=== PATIENT | female | born 1980 | race Caucasian/White ===

== ENCOUNTER 2016-08-04 04:07 | Emergency (ER) | payer MEDICAID, OTHER ==
[~2016-08-04] VITALS: Ht 157.5 cm; Wt 59.0 kg
[~2016-08-04 04:07] MED LIST: ACETAMINOPHEN500 M3 ORAL; ALBUTEROL2.5 MG/3 M INH; KEFLEX500 MG ORAL; PRENATAL FORMU1 EAC2 PO
--- NOTE | 2016-08-04 04:12 | Emergency Room Report ---
History of Present Illness General Chief Complaint: Dyspnea/Respdistress Source: Patient, EMS Present Illness HPI Patient is a 35-year-old female presented after increased difficulty breathing. The patient was acute onset of symptoms. She had associated nonproductive cough. The patient prior history of asthma. She denied any fever. She had a gradual worsening of symptoms. Allergies: Coded Allergies: No Known Allergies (Unverified , 09/25/15) Patient History Past Medical History: asthma Past Surgical History: hysterectomy Reviewed Nursing Documentation: PMH: Agreed, PSxH: Agreed Nursing Documentation-PMH Hx Asthma: Yes Review of Systems All Other Systems: negative except mentioned in HPI Physical Exam Sp02 EP Interpretation: reviewed, normal General Appearance: normal inspection, alert, GCS 15, moderate distress Head: atraumatic ENT: normal ENT inspection, hearing grossly normal, normal voice Neck: normal inspection, full range of motion, supple, no bony tend Respiratory: normal inspection, no respiratory distress, no retraction, wheezing Cardiovascular #1: no edema, tachycardia Gastrointestinal: normal inspection, normal bowel sounds, non tender, soft, no guarding, no hernia Genitourinary: no CVA tenderness Musculoskeletal: normal inspection, back normal, normal range of motion Neurologic: normal inspection, alert, oriented x3, responsive, classification and treatment director III-XII nml as tested, speech normal Psychiatric: normal inspection, judgement/insight normal, mood/affect normal Skin: normal inspection, normal color, no rash Medical Decision Making Diagnostic Impression: Primary Impression: Asthma exacerbation attacks ER Course Patient presented for shortness of breath. Differential included but was not limited to anemia, pneumonia, pneumothorax, myocardial infarction, pericardial effusion, congestive heart failure, acidosis. Because of complexity of patient' s case laboratory testing and imaging studies were ordered.The patient was given IV steroids as well as breathing treatments. Patient was noted to have prior hysterectomy. Chest x-ray one view interpreted by me showed hyperinflation with some bullous changes. The patient started on IV fluids.Dr. Dsouza was contacted for inpatient management due to need for inpatient monitoring and treatment. Labs Test 08/04/16 04:50 08/04/16 05:20 08/04/16 05:27 08/04/16 06:40 Lipase 41 U/L (< 60) White Blood Count 14.1 K/UL (4.8-10.8) Red Blood Count 5.07 M/UL (4.20-5.40) Hemoglobin 15.7 G/DL (12.0-16.0) Hematocrit 47.1 % (37.0-47.0) Mean Corpuscular Volume 93 FL (80-99) Mean Corpuscular Hemoglobin 30.9 PG (27.0-31.0) Mean Corpuscular Hemoglobin Concent 33.3 G/DL (32.0-36.0) Red Cell Distribution Width 11.8 % (11.6-14.8) Platelet Count 300 K/UL (150-450) Mean Platelet Volume 7.2 FL (6.5-10.1) Neutrophils (%) (Auto) 57.9 % (45.0-75.0) Lymphocytes (%) (Auto) 24.3 % (20.0-45.0) Monocytes (%) (Auto) 8.4 % (1.0-10.0) Eosinophils (%) (Auto) 8.4 % (0.0-3.0) Basophils (%) (Auto) 1.1 % (0.0-2.0) Sodium Level 142 mEQ/L (135-145) Potassium Level 4.3 mEQ/L (3.4-4.9) Chloride Level 104 mEQ/L (98-107) Carbon Dioxide Level 25 mEQ/L (20-30) Anion Gap 13 (5-15) Blood Urea Nitrogen 19 mg/dL (7-23) Creatinine 0.8 mg/dL (0.5-0.9) Estimat Glomerular Filtration Rate > 60 mL/min (>60) Glucose Level 134 mg/dL (74-106) Calcium Level 9.2 mg/dL (8.6-10.2) Total Bilirubin 0.3 mg/dL (0.0-1.2) Aspartate Amino Transf (AST/SGOT) 18 U/L (5-40) Alanine Aminotransferase (ALT/SGPT) 19 U/L (3-33) Alkaline Phosphatase 66 U/L (35-104) Total Protein 6.9 g/dL (6.6-8.7) Albumin 4.3 g/dL (3.5-5.2) Globulin 2.6 g/dL Albumin/Globulin Ratio 1.6 (1.0-2.7) Troponin I < 0.30 ng/mL (<=0.30) EKG Diagnostic Results Rate: tachycardiac Rhythm: NSR ST Segments: no acute changes Chest X-Ray Diagnostic Results Chest X-Ray Ordered: Yes # of Views/Limited/Complete: 1 View Interpretation: no consolidation Indication: Chest Pain Impression: Other - hyperinflation Date Electronically Signed: Aug 04, 2016 Time Electronically Signed: 07:08 Status: unchanged Disposition: ADMITTED INPATIENT Condition: Serious IrwinRj Aug 04, 2016 04:12
[2016-08-04] MEDS ORDERED: Solu-MEDROL 125mg Inj IVP ONE (04:15)
[2016-08-04] MEDS: DuoNeb 0.5-3(2.5)mg/3ml neb HHN SCH ×9 (04:15→07:16)
[2016-08-04 04:30] VITALS: BP 118/46
[2016-08-04 05:00] VITALS: BP 93/48
[2016-08-04 05:30] VITALS: BP 105/51
[2016-08-04] MEDS ORDERED: DuoNeb 0.5-3(2.5)mg/3ml neb HHN ONE (05:30)
[2016-08-04 05:31] LABS: BASOPHILS % (AUTO) 1.1 % (0.0-2.0); EOSINOPHILS % (AUTO) 8.4 % (0.0-3.0); LYMPHOCYTES % (AUTO) 24.3 % (20.0-45.0); MEAN CORPUSCULAR HEMOGLOBIN 30.9 PG (27.0-31.0); MEAN CORPUSCULAR HGB CONC 33.3 G/DL (32.0-36.0); MEAN CORPUSCULAR VOLUME 93 FL (80-99); MEAN PLATELET VOLUME 7.2 FL (6.5-10.1); MONOCYTES % (AUTO) 8.4 % (1.0-10.0); NEUTROPHILS % (AUTO) 57.9 % (45.0-75.0); PLATELET COUNT 300 K/UL (150-450); RED BLOOD COUNT 5.07 M/UL (4.20-5.40); RED CELL DISTRIBUTION WIDTH 11.8 % (11.6-14.8); WHITE BLOOD COUNT 14.1 K/UL (4.8-10.8)
[2016-08-04 05:45] LABS: ALANINE AMINOTRANSFERASE 19 U/L (3-33); ALBUMIN/GLOBULIN RATIO 1.6 (1.0-2.7); ANION GAP 13 (5-15); ASPARTATE AMINO TRANSFERASE 18 U/L (5-40); CALCIUM 9.2 mg/dL (8.6-10.2); CARBON DIOXIDE 25 mEQ/L (20-30); CHLORIDE 104 mEQ/L (98-107); CREATININE 0.8 mg/dL (0.5-0.9); GLOMERULAR FILTRATION RATE > 60 mL/min (>60); HEMOLYSIS 24; POTASSIUM 4.3 mEQ/L (3.4-4.9); SODIUM 142 mEQ/L (135-145); TOTAL PROTEIN 6.9 g/dL (6.6-8.7)
[2016-08-04 05:48] VITALS: BP 118/46
[2016-08-04 05:56] LABS: TROPONIN I < 0.30 ng/mL (<=0.30)
[2016-08-04 07:00] VITALS: BP 111/65
[2016-08-04] MEDS ORDERED: Promethazine/Codeine 5ml UD ORAL PRN (07:30)
[2016-08-04 07:36] VITALS: BP 111/65
[2016-08-04] MEDS ORDERED: Solu-MEDROL 125mg Inj IVP SCH (08:00)
[2016-08-04] MEDS ORDERED: Theophylline ER 100mg ORAL SCH (09:00)
[2016-08-04] MEDS ORDERED: Azithromycin 500 MG in D5W 275 ML IVPB SCH (09:00)
--- NOTE | 2016-08-04 12:45 | History and Physical Report ---
DATE OF ADMISSION: 08/04/2016 SOURCE OF INFORMATION: The patient and EMR. HISTORY OF PRESENT ILLNESS: The patient is a 35-year-old female, presented with increasing shortness of breath. The patient denied any chest pain. The patient denies any headache. The patient denied any abnormal bleeding. The patient denies any productive cough. PAST MEDICAL HISTORY: Asthma. PAST SURGICAL HISTORY: Hysterectomy. ALLERGIES: NKDA. FAMILY HISTORY: Reviewed noncontributory. REVIEW OF SYSTEMS: Reviewed. All 12 points of review of systems reviewed with the patient. Positive and negative pertinent elements as above. PHYSICAL EXAMINATION: VITAL SIGNS: Blood pressure 130/80, temperature 98.2 degrees, pulse oximetry 98% on room air, respiratory rate 18, and pulse rate 110-120. HEENT: Head and neck, atraumatic and normocephalic. CHEST: Chest is diffuse. Bronchial and mixed wheezing sounds. Negative for crackles. Negative for decreased breathing. HEART: S1 and S2. Regular rate and rhythm. ABDOMEN: Soft. No organomegaly. MUSCULOSKELETAL: No gross focal motor deficit. NEUROLOGY: The patient is awake, alert and oriented x3. LABORATORY AND DIAGNOSTIC DATA: Lab results, WBC 14.1, hemoglobin 15.5, and platelets 300,000. sodium 142, potassium 4.3, BUN 19, and creatinine 0.8. UA is negative for . Chest x-ray, official report is pending. ASSESSMENT AND PLAN: 1. Asthma exacerbation. 2. Urinary tract infection. 3. Abnormal leukocytosis. Differential diagnosis secondary to outpatient steroid regimen treatment versus systemic inflammatory response syndrome. 4. Gastrointestinal and deep vein thrombosis prophylaxes. PLAN OF CARE: We will initiate the patient on the IV Solu-Medrol 60 mg three times a day and Zithromax 500 mg daily. I discussed the admission orders with the RN in the ER. Minerva Dsouza M.D. DR: Marcy JOB#: [id number] CC: MAJOR
[2016-08-04] MEDS ORDERED: DuoNeb 0.5-3(2.5)mg/3ml neb HHN SCH (13:00)
--- NOTE | 2016-08-06 09:10 | Diagnostic Imaging Report ---
Indication: Dyspnea Comparison: None A single view chest radiograph was obtained. Findings: Small focal infiltrate suspected in the right perihilar region. Please correlate clinically for pneumonia. Heart size is normal. Bones are unremarkable. Impression: Question of a small infiltrate in the right perihilar region of the lung.
== END 2016-08-04 07:46 | disposition left against medical advice (07) ==
LOC: EDBD 04:07 → EMR 05:07 → UNDOADMIN 06:17 → 3E 06:17 → EDBEDREQ 06:52 → EMR 07:46
DX: J45.901 Unspecified asthma with (acute) exacerbation (principal); N39.0 Urinary tract infection, site not specified; D72.829 Elevated white blood cell count, unspecified
CPT/HCPCS: 36415; 71010; 80053; 80300; 81025; 83690; 84484; 85025; 93005; 94640; 94664; 99285; J2405; J2930; J7620

== ENCOUNTER 2016-08-08 17:42 | Inpatient (IN) | payer OTHER ==
[~2016-08-08] VITALS: Ht 157.5 cm; Wt 62.1 kg
[2016-08-08] MEDS ORDERED: Ipratropium 0.02% Inh Soln 2.5ml UD HHN ONE (17:45)
[2016-08-08] MEDS ORDERED: Solu-MEDROL 125mg Inj IVP ONE (17:45)
[2016-08-08] MEDS: LORazepam 0.5mg tab ORAL ONE ×2 (17:51→18:06)
[2016-08-08] MEDS: Albuterol ud Inhalation HHN SCH ×3 (17:55→18:19)
[2016-08-08 18:05] VITALS: BP 150/91
[2016-08-08 18:08] LABS: BASOPHILS % (AUTO) 1.6 % (0.0-2.0); EOSINOPHILS % (AUTO) 10.7 % (0.0-3.0); LYMPHOCYTES % (AUTO) 31.3 % (20.0-45.0); MEAN CORPUSCULAR HEMOGLOBIN 32.6 PG (27.0-31.0); MEAN CORPUSCULAR HGB CONC 34.8 G/DL (32.0-36.0); MEAN CORPUSCULAR VOLUME 94 FL (80-99); MONOCYTES % (AUTO) 7.7 % (1.0-10.0); NEUTROPHILS % (AUTO) 48.8 % (45.0-75.0); PLATELET COUNT 273 K/UL (150-450); RED BLOOD COUNT 4.69 M/UL (4.20-5.40); RED CELL DISTRIBUTION WIDTH 11.6 % (11.6-14.8); WHITE BLOOD COUNT 10.7 K/UL (4.8-10.8)
[2016-08-08] MEDS ORDERED: LORazepam Inj 2mg/ml 1ml IV ONE (18:15)
--- NOTE | 2016-08-08 18:16 | Emergency Room Report ---
History of Present Illness General Chief Complaint: Dyspnea/Respdistress Source: Patient Present Illness HPI This patient has a history of asthma. She was seen 4 days ago here at [facility] emergency department for the same symptoms. She left AGAINST MEDICAL ADVICE at that time. She states that over the past day she has had worsening shortness of breath and dyspnea. She is very anxious and stating that she can't breathe. She denies tobacco use or drug use. She has no other complaints. Allergies: Coded Allergies: No Known Allergies (Unverified , 09/25/15) Patient History Past Medical History: see triage record, asthma Social History: Denies: alcohol use, drug use, smoking Reviewed Nursing Documentation: PMH: Agreed, PSxH: Agreed Nursing Documentation-PMH Hx Cardiac Problems: No Hx Hypertension: No Hx Pacemaker: No Hx Asthma: No Hx Diabetes: No Hx Cancer: No Hx Gastrointestinal Problems: No Hx Dialysis: No History Of Psychiatric Problem: No Hx Neurological Problems: No Hx Cerebrovascular Accident: No Hx Seizures: No Review of Systems All Other Systems: negative except mentioned in HPI Physical Exam Vital Signs Date Time Temp Pulse Resp B/P Pulse Ox O2 Delivery O2 Flow Rate FiO2 08/08/16 17:40 98.1 88 24 120/80 98 Simple Mask 08/08/16 17:45 2.0 Sp02 EP Interpretation: reviewed, normal General Appearance: no apparent distress, alert, GCS 15, non-toxic Head: normocephalic, atraumatic Eyes: bilateral eye PERRL, bilateral eye normal inspection ENT: hearing grossly normal, normal pharynx, no angioedema, normal voice Neck: full range of motion, supple/symm/no masses Respiratory: chest non-tender, accessory muscle use, wheezing, expiration, other - Tachypnea, anxious Cardiovascular #1: no edema, tachycardia Gastrointestinal: normal bowel sounds, non tender, soft, non-distended, no guarding, no rebound Rectal: deferred Genitourinary: normal inspection Musculoskeletal: back normal, gait/station normal, normal range of motion, non- tender Neurologic: alert, oriented x3, responsive, motor strength/tone normal, sensory intact, speech normal Psychiatric: judgement/insight normal, memory normal, mood/affect normal, no suicidal/homicidal ideation Skin: normal color, no rash, warm/dry, well hydrated Medical Decision Making Diagnostic Impression: Primary Impression: Asthma with acute exacerbation ER Course This patient presented with tachypnea and anxious. She did have wheezing on exam. However, she did maintain her oxygen saturations in the high 90s despite her anxiety and tachypnea. She was given Ativan because I felt that she was having some element of panic. She is also given albuterol and Atrovent nebulizer treatments and IV Solu-Medrol. Chest x-ray did not show any evidence of pneumonia. Laboratory workup is noncontributory. I did obtain an ABG on this patient given how anxious and tachypneic she was. The ABG is consistent with hyperventilation syndrome. This is very reassuring. The patient is having a severe asthma exacerbation and will be admitted for further pulmonary hygiene, monitoring and treatment. Labs Test 08/08/16 17:40 08/08/16 18:50 White Blood Count 10.7 K/UL (4.8-10.8) Red Blood Count 4.69 M/UL (4.20-5.40) Hemoglobin 15.3 G/DL (12.0-16.0) Hematocrit 43.9 % (37.0-47.0) Mean Corpuscular Volume 94 FL (80-99) Mean Corpuscular Hemoglobin 32.6 PG (27.0-31.0) Mean Corpuscular Hemoglobin Concent 34.8 G/DL (32.0-36.0) Red Cell Distribution Width 11.6 % (11.6-14.8) Platelet Count 273 K/UL (150-450) Mean Platelet Volume 7.0 FL (6.5-10.1) Neutrophils (%) (Auto) 48.8 % (45.0-75.0) Lymphocytes (%) (Auto) 31.3 % (20.0-45.0) Monocytes (%) (Auto) 7.7 % (1.0-10.0) Eosinophils (%) (Auto) 10.7 % (0.0-3.0) Basophils (%) (Auto) 1.6 % (0.0-2.0) Prothrombin Time 10.0 SEC (9.30-11.50) Prothromb Time International Ratio 1.0 (0.9-1.1) Activated Partial Thromboplast Time 27 SEC (23-33) Sodium Level 143 mEQ/L (135-145) Potassium Level 3.8 mEQ/L (3.4-4.9) Chloride Level 109 mEQ/L (98-107) Carbon Dioxide Level 21 mEQ/L (20-30) Anion Gap 13 (5-15) Blood Urea Nitrogen 18 mg/dL (7-23) Creatinine 0.6 mg/dL (0.5-0.9) Estimat Glomerular Filtration Rate > 60 mL/min (>60) Glucose Level 79 mg/dL (74-106) Calcium Level 7.6 mg/dL (8.6-10.2) Total Bilirubin < 0.2 mg/dL (0.0-1.2) Aspartate Amino Transf (AST/SGOT) 17 U/L (5-40) Alanine Aminotransferase (ALT/SGPT) 20 U/L (3-33) Alkaline Phosphatase 53 U/L (35-104) Troponin I < 0.30 ng/mL (<=0.30) Pro-B-Type Natriuretic Peptide 50 pg/mL (0-125) Total Protein 5.5 g/dL (6.6-8.7) Albumin 3.7 g/dL (3.5-5.2) Globulin 1.8 g/dL Albumin/Globulin Ratio 2.0 (1.0-2.7) Human Chorionic Gonadotropin, Qual Negative Arterial Blood pH 7.333 (7.350-7.450) Arterial Blood Partial Pressure CO2 39.1 mmHg (35.0-45.0) Arterial Blood Partial Pressure O2 134.9 mmHg (75.0-100.0) Arterial Blood HCO3 20.3 mmol/L (22.0-26.0) Arterial Blood Oxygen Saturation 98.4 % (92.0-98.0) Arterial Blood Base Excess -5.1 Lonnie Test Positive Labs Test 08/08/16 17:40 White Blood Count 10.7 K/UL (4.8-10.8) Red Blood Count 4.69 M/UL (4.20-5.40) Hemoglobin 15.3 G/DL (12.0-16.0) Hematocrit 43.9 % (37.0-47.0) Mean Corpuscular Volume 94 FL (80-99) Mean Corpuscular Hemoglobin 32.6 PG (27.0-31.0) Mean Corpuscular Hemoglobin Concent 34.8 G/DL (32.0-36.0) Red Cell Distribution Width 11.6 % (11.6-14.8) Platelet Count 273 K/UL (150-450) Mean Platelet Volume 7.0 FL (6.5-10.1) Neutrophils (%) (Auto) 48.8 % (45.0-75.0) Lymphocytes (%) (Auto) 31.3 % (20.0-45.0) Monocytes (%) (Auto) 7.7 % (1.0-10.0) Eosinophils (%) (Auto) 10.7 % (0.0-3.0) Basophils (%) (Auto) 1.6 % (0.0-2.0) Prothrombin Time 10.0 SEC (9.30-11.50) Prothromb Time International Ratio 1.0 (0.9-1.1) Activated Partial Thromboplast Time 27 SEC (23-33) Sodium Level 143 mEQ/L (135-145) Potassium Level 3.8 mEQ/L (3.4-4.9) Chloride Level 109 mEQ/L (98-107) Carbon Dioxide Level 21 mEQ/L (20-30) Anion Gap 13 (5-15) Blood Urea Nitrogen 18 mg/dL (7-23) Creatinine 0.6 mg/dL (0.5-0.9) Estimat Glomerular Filtration Rate > 60 mL/min (>60) Glucose Level 79 mg/dL (74-106) Calcium Level 7.6 mg/dL (8.6-10.2) Total Bilirubin < 0.2 mg/dL (0.0-1.2) Aspartate Amino Transf (AST/SGOT) 17 U/L (5-40) Alanine Aminotransferase (ALT/SGPT) 20 U/L (3-33) Alkaline Phosphatase 53 U/L (35-104) Troponin I < 0.30 ng/mL (<=0.30) Total Protein 5.5 g/dL (6.6-8.7) Albumin 3.7 g/dL (3.5-5.2) Globulin 1.8 g/dL Albumin/Globulin Ratio 2.0 (1.0-2.7) Human Chorionic Gonadotropin, Qual Negative EKG Diagnostic Results Rhythm: other ST Segments: no acute changes Other Impression S.tachycardia Rhythm Strip Diag. Results EP Interpretation: yes Rate: 110's Rhythm: no PVC's, no ectopy, other Other Impression S.tachycardia Chest X-Ray Diagnostic Results Chest X-Ray Ordered: Yes # of Views/Limited/Complete: 1 View Interpretation: no consolidation, no effusion, no pneumothorax, no acute cardiopulmonary disease Indication: Shortness of Breath Impression: No acute disease Date Electronically Signed: Aug 08, 2016 Time Electronically Signed: 19:47 Interpreting ER Physician: Jorge A Last Vital Signs Date Time Temp Pulse Resp B/P Pulse Ox O2 Delivery O2 Flow Rate FiO2 08/08/16 18:05 134 23 150/91 95 Room Air 08/08/16 17:45 2.0 08/08/16 17:40 98.1 Disposition: ADMITTED INPATIENT Condition: Serious CYNTHIA TINAJERO D.O. Aug 08, 2016 18:16
[2016-08-08 18:18] LABS: TROPONIN I < 0.30 ng/mL (<=0.30)
[2016-08-08 18:23] LABS: ALANINE AMINOTRANSFERASE 20 U/L (3-33); ANION GAP 13 (5-15); ASPARTATE AMINO TRANSFERASE 17 U/L (5-40); CALCIUM 7.6 mg/dL (8.6-10.2); CARBON DIOXIDE 21 mEQ/L (20-30); CHLORIDE 109 mEQ/L (98-107); CREATININE 0.6 mg/dL (0.5-0.9); GLOMERULAR FILTRATION RATE > 60 mL/min (>60); HEMOLYSIS 20; POTASSIUM 3.8 mEQ/L (3.4-4.9); SODIUM 143 mEQ/L (135-145); TOTAL PROTEIN 5.5 g/dL (6.6-8.7)
[2016-08-08 18:47] VITALS: BP 133/75
[2016-08-08 19:00] LABS: ABG ALLEN TEST POSITIVE; ABG BASE EXCESS -5.1; ABG PCO2 39.1 mmHg (35.0-45.0)
[2016-08-08 19:38] VITALS: BP 113/54
[2016-08-08] MEDS ORDERED: Morphine Sulfate 2mg/ml Inj IVP PRN (20:00)
[2016-08-08] MEDS ORDERED: Ketorolac 30mg Inj IV PRN (20:00)
[2016-08-08] MEDS ORDERED: Nitroglycerin Subl 0.4mg tab (Bottle Of 25) SL PRN (20:00)
[2016-08-08] MEDS ORDERED: Promethazine/Codeine 5ml UD ORAL PRN (20:00)
[2016-08-08] MEDS ORDERED: LORazepam Inj 2mg/ml 1ml IV PRN (20:00)
[2016-08-08 21:10] VITALS: BP 110/60
[2016-08-08] MEDS: Theophylline ER 100mg ORAL SCH (21:23)
[2016-08-08] MEDS: Heparin 5000 units/ml inj SUBQ SCH (21:24)
[2016-08-08] MEDS: Piperacillin/Tazobactam 3.375 GM in D5W 110 ML IVPB SCH (22:19)
[2016-08-08] MEDS: Solu-MEDROL 125mg Inj IV SCH (23:52)
[2016-08-09] VITALS: BP 117/87
[2016-08-09] MEDS ORDERED: SEROQUEL XR200 MG ORAL (00:12)
[2016-08-09] MEDS: DuoNeb 0.5-3(2.5)mg/3ml neb HHN PRN ×2 (00:36→07:06)
[2016-08-09 04:00] VITALS: BP 105/54
[2016-08-09] MEDS: Solu-MEDROL 125mg Inj IV SCH ×2 (06:06→11:28)
[2016-08-09] MEDS: Piperacillin/Tazobactam 3.375 GM in D5W 110 ML IVPB SCH (06:07)
[2016-08-09 08:00] VITALS: BP 110/62
[2016-08-09] MEDS: Theophylline ER 100mg ORAL SCH (08:42)
[2016-08-09] MEDS: Heparin 5000 units/ml inj SUBQ SCH (08:47)
--- NOTE | 2016-08-09 11:36 | Diagnostic Imaging Report ---
Indications: Shortness of breath Technique: Portable AP chest Findings: Comparison: 08/04/2016 Lungs remain symmetrically upper limits of normal in volume with biapical lucencies, left greater than right, otherwise clear heart size, pulmonary vasculature remain within normal limits. No pleural abnormalities. IMPRESSION: No evidence of acute cardiopulmonary disease, unchanged Stable biapical lucencies likely bullae/blebs
[2016-08-09 12:00] VITALS: BP 109/61
--- NOTE | 2016-08-09 12:45 | History and Physical ---
History of Present Illness General Date patient seen: Aug 09, 2016 Reason for Hospitalization: Dyspnea/Respdistress Present Illness HPI 35 year old female with a history of asthma presented to [facility] with CC of worsening shortness of breath and dyspnea. She is very anxious and stating that she can't breathe. She denies tobacco use or drug use. She has no other complaints. Allergies: Coded Allergies: No Known Allergies (Unverified , 09/25/15) Medication History Scheduled Quetiapine Fumarate (Seroquel Xr), 200 MG ORAL QHS, (Reported) Scheduled PRN Albuterol Sulfate* (Albuterol Sulfate Hhn*), 3 ML INH Q6H PRN for Shortness of Breath, (Reported) Miscellaneous Medications Vits W-Ca,Fe,Fa(<1MG) ( Formula), 1 EACH PO, (Reported) Discontinued Medications Acetaminophen* (Acetaminophen Extra Strength*), 500 MG ORAL Q8H PRN for Fever/ Headache/Mild Pain Discontinued Reason: Therapy completed Cephalexin* (Keflex*), 500 MG ORAL Q6H Discontinued Reason: Therapy completed Patient History Healthcare decision maker Resuscitation status Full Code Advanced Directive on File Past Medical/Surgical History Past Medical/Surgical History: (1) History of emphysema Review of Systems All Other Systems: negative except mentioned in HPI Physical Exam General Appearance: WD/WN, mild distress Lines, tubes and drains: peripheral, central line HEENT: normocephalic, anicteric Neck: non-tender, normal alignment Respiratory/Chest: chest wall non-tender, lungs clear Cardiovascular/Chest: normal peripheral pulses, normal rate Abdomen: normal bowel sounds, non tender, hyperactive bowel sounds Extremities: normal range of motion Skin Exam: normal pigmentation Neurologic: town planner II-XII grossly normal Last 24 Hour Vital Signs Date Time Temp Pulse Resp B/P Pulse Ox O2 Delivery O2 Flow Rate FiO2 08/09/16 12:00 96 18 109/61 Nasal Cannula 2.0 96 08/09/16 08:00 91 08/09/16 08:00 96.8 76 18 110/62 98 08/09/16 07:08 108 18 Nasal Cannula 3.0 08/09/16 07:05 106 18 96 Nasal Cannula 3.0 08/09/16 07:04 96 Nasal Cannula 3.0 08/09/16 07:03 Nasal Cannula 3.0 08/09/16 07:03 99 18 98 Nasal Cannula 4.0 08/09/16 04:00 97.4 85 20 105/54 97 Nasal Cannula 2.0 08/09/16 04:00 67 08/09/16 00:35 97 20 99 Nasal Cannula 4.0 08/09/16 00:32 97 18 98 Nasal Cannula 4.0 08/09/16 00:00 96.8 108 20 117/87 97 Room Air 08/09/16 00:00 94 08/08/16 21:10 98.1 108 20 110/60 98 Nasal Cannula 2.0 08/08/16 21:09 97.9 109 18 113/54 99 Nasal Cannula 2.0 28 08/08/16 21:00 107 08/08/16 19:41 109 18 Nasal Cannula 2.0 08/08/16 19:38 97.9 109 18 113/54 99 Nasal Cannula 2.0 08/08/16 18:47 97.9 113 27 133/75 99 Simple Mask 08/08/16 18:29 134 24 99 Nasal Cannula 2.0 28 08/08/16 18:29 28 08/08/16 18:19 124 37 99 Nasal Cannula 2.0 28 08/08/16 18:10 124 37 99 Nasal Cannula 2.0 28 08/08/16 18:10 28 08/08/16 18:10 134 24 99 Nasal Cannula 2.0 28 08/08/16 18:05 134 23 150/91 95 Room Air 08/08/16 17:45 128 26 Nasal Cannula 2.0 08/08/16 17:40 28 08/08/16 17:40 124 24 98 Nasal Cannula 2.0 28 08/08/16 17:40 98.1 88 24 120/80 98 Simple Mask 08/08/16 17:36 124 24 98 Nasal Cannula 2.0 28 Intake and Output 08/08/16 08/09/16 19:00 07:00 Intake Total 1000 ml 1110.0 ml Output Total 200 ml Balance 800 ml 1110.0 ml Intake Oral 1000 ml IV Total 1000 ml 110.0 ml Output Emesis 200 ml # Voids 1 Laboratory Tests Test 08/08/16 17:40 08/08/16 18:50 08/08/16 19:40 White Blood Count 10.7 K/UL (4.8-10.8) Red Blood Count 4.69 M/UL (4.20-5.40) Hemoglobin 15.3 G/DL (12.0-16.0) Hematocrit 43.9 % (37.0-47.0) Mean Corpuscular Volume 94 FL (80-99) Mean Corpuscular Hemoglobin 32.6 PG (27.0-31.0) H Mean Corpuscular Hemoglobin Concent 34.8 G/DL (32.0-36.0) Red Cell Distribution Width 11.6 % (11.6-14.8) Platelet Count 273 K/UL (150-450) Mean Platelet Volume 7.0 FL (6.5-10.1) Neutrophils (%) (Auto) 48.8 % (45.0-75.0) Lymphocytes (%) (Auto) 31.3 % (20.0-45.0) Monocytes (%) (Auto) 7.7 % (1.0-10.0) Eosinophils (%) (Auto) 10.7 % (0.0-3.0) H Basophils (%) (Auto) 1.6 % (0.0-2.0) Prothrombin Time 10.0 SEC (9.30-11.50) Prothromb Time International Ratio 1.0 (0.9-1.1) Activated Partial Thromboplast Time 27 SEC (23-33) Sodium Level 143 mEQ/L (135-145) Potassium Level 3.8 mEQ/L (3.4-4.9) Chloride Level 109 mEQ/L (98-107) H Carbon Dioxide Level 21 mEQ/L (20-30) Anion Gap 13 (5-15) Blood Urea Nitrogen 18 mg/dL (7-23) Creatinine 0.6 mg/dL (0.5-0.9) Estimat Glomerular Filtration Rate > 60 mL/min (>60) Glucose Level 79 mg/dL (74-106) Calcium Level 7.6 mg/dL (8.6-10.2) L Total Bilirubin < 0.2 mg/dL (0.0-1.2) Aspartate Amino Transf (AST/SGOT) 17 U/L (5-40) Alanine Aminotransferase (ALT/SGPT) 20 U/L (3-33) Alkaline Phosphatase 53 U/L (35-104) Troponin I < 0.30 ng/mL (<=0.30) Pro-B-Type Natriuretic Peptide 50 pg/mL (0-125) Total Protein 5.5 g/dL (6.6-8.7) L Albumin 3.7 g/dL (3.5-5.2) Globulin 1.8 g/dL Albumin/Globulin Ratio 2.0 (1.0-2.7) Human Chorionic Gonadotropin, Qual Negative Arterial Blood pH 7.333 (7.350-7.450) Arterial Blood Partial Pressure CO2 39.1 mmHg (35.0-45.0) Arterial Blood Partial Pressure O2 134.9 mmHg (75.0-100.0) H Arterial Blood HCO3 20.3 mmol/L (22.0-26.0) L Arterial Blood Oxygen Saturation 98.4 % (92.0-98.0) H Arterial Blood Base Excess -5.1 Lonnie Test Positive Lactic Acid Level 0.90 mmol/L (0.66-2.22) Height (Feet): 5 Height (Inches): 2.00 Weight (Pounds): 137 Medications Current Medications Medications (Trade) Dose Ordered Sig/Ashli Route PRN Reason Start Time Stop Time Status Last Admin Dose Admin Albuterol/ Ipratropium (DuoNeb 0.5-3(2.5)mg/3ml) 3 ml EVERY 4 HOURS PRN HHN dyspnea 08/08/16 20:00 08/13/16 19:59 08/09/16 07:06 Dextrose (Dextrose 50%) STAT PRN IV Hypoglycemia 08/08/16 23:15 09/07/16 23:14 Heparin Sodium (Porcine) (Heparin 5000 units/ml) 5,000 units EVERY 12 HOURS SUBQ 08/08/16 21:00 09/07/16 20:59 08/09/16 08:47 Ketorolac Tromethamine (Toradol 30mg) 30 mg EVERY 8 HOURS PRN IV moderate pain 4-6 08/08/16 20:00 08/13/16 19:59 Lorazepam (Ativan 2mg/ml 1ml) 0.5 mg Q4H PRN IV For Anxiety 08/08/16 20:00 08/15/16 19:59 Methylprednisolone Sodium Succinate (Solu-MEDROL) 60 mg EVERY 6 HOURS IV 08/09/16 00:00 09/08/16 00:00 08/09/16 11:28 Morphine Sulfate (Morphine Sulfate) 2 mg EVERY 4 HOURS PRN IVP severe pain 7-10 08/08/16 20:00 08/15/16 19:59 Nitroglycerin (Ntg) 0.4 mg Q5M X 3 DOSES PRN SL Prn Chest Pain 08/08/16 20:00 09/07/16 19:59 Ondansetron HCl (Zofran) 4 mg Q6H PRN IVP Nausea & Vomiting 08/08/16 20:00 09/07/16 19:59 Piperacillin Sod/ Tazobactam Sod/ Dextrose (Zosyn/D5W) 110 ml @ 27.5 mls/hr EVERY 8 HOURS IVPB 08/08/16 22:00 08/15/16 21:59 08/09/16 06:07 Promethazine HCl/ Codeine (Phenergan with Codeine) 5 ml EVERY 6 HOURS PRN ORAL cough 08/08/16 20:00 09/07/16 19:59 08/09/16 00:14 Temazepam (Restoril) 15 mg HSPRN PRN ORAL Insomnia 08/08/16 20:00 08/15/16 19:59 Theophylline 100 mg 100 mg EVERY 12 HOURS ORAL 08/08/16 21:00 09/07/16 20:59 08/09/16 08:42 Assessment/Plan Problem List: (1) Respiratory distress ICD Codes: R06.00 - Dyspnea, unspecified SNOMED: 008065388 (2) History of emphysema ICD Codes: Z87.09 - Personal history of other diseases of the respiratory system SNOMED: 656307863 (3) Asthma with acute exacerbation ICD Codes: J45.901 - Unspecified asthma with (acute) exacerbation SNOMED: 515309474 Assessment/Plan steroids abx respiratory treatment pt wants to be discharged today ORQUIDEA HUIZAR Aug 09, 2016 12:45
[2016-08-09] MEDS ORDERED: NS 275ml ONE (12:59)
[2016-08-09] MEDS ORDERED: Tubing IV Secondary IV ONE (12:59)
--- NOTE | 2016-08-10 09:40 | Discharge Summary ---
Discharge Summary Hospital Course Date of Admission Aug 08, 2016 at 18:49 Date of Discharge Aug 09, 2016 at 13:00 Admitting Diagnosis asthma exacerbation HPI Latonya Dobson is a 35 year old female who was admitted on Aug 08, 2016 at 18:49 for Asthma Exacerbation Hospital Course [id number] Discharge Discharge Disposition Patient was discharged to Home (01) Discharge Diagnoses: Mercedez Xiao NP Aug 10, 2016 09:40
--- NOTE | 2016-08-10 21:30 | Discharge Summary 2 SIG ---
DATE OF ADMISSION: 08/08/2016 DATE OF DISCHARGE: 08/09/2016 BRIEF HOSPITAL COURSE: The patient is a 35-year-old female with history of asthma, presented to ED complaining of worsening shortness of breath and dyspnea. She was seen four days ago at ED for same symptoms and left against medical advice. Over the past days, she had worsening shortness of breath and was very anxious and stating, she cannot breathe. On examination at ED, she was wheezing and was given nebulizer treatments and was started on IV Solu-Medrol. Chest x-ray did not show any evidence of pneumonia. She was admitted for further monitoring and was started on IV antibiotics. Following day, symptoms improved and the patient was discharged home. FINAL DIAGNOSES: 1. Acute asthma exacerbation. 2. Emphysema. 3. Respiratory distress. Samir Ren M.D. I have been assigned to dictate discharge summary on this account and I was not involved in the patient's management. Mercedez Xiao N.P. DR: TRUE JOB#: [id number] CC:
== END 2016-08-09 13:00 | disposition home or self-care (01) | DRG 141 ==
LOC: EDBD 17:42 → EMR 18:40 → 2E 18:49 → EDBEDREQ 19:59
DX: J45.901 Unspecified asthma with (acute) exacerbation (principal); J43.9 Emphysema, unspecified
CPT/HCPCS: 36415; 36600; 71010; 80053; 82803; 83605; 83880; 84484; 84703; 85025; 85610; 85730; 87040; 87070; 87205; 93005; 94640; 94664; 94760; J2405; J7620

== ENCOUNTER 2017-04-01 16:25 | Emergency (ER) | payer OTHER ==
[~2017-04-01] VITALS: Ht 157.5 cm; Wt 60.3 kg
[~2017-04-01 16:25] MED LIST changes: +SEROQUEL XR200 MG ORAL
[2017-04-01] MEDS ORDERED: Sodium Chloride 500ML 500 ML IV ONE (17:29)
[2017-04-01] MEDS ORDERED: Morphine Sulfate 4mg/ml Inj IVP ONE (17:30)
[2017-04-01] MEDS ORDERED: Solu-MEDROL 125mg Inj IVP ONE (17:30)
[2017-04-01] MEDS: Ipratropium 0.02% Inh Soln 2.5ml UD HHN SCH ×2 (17:37→17:40)
[2017-04-01] MEDS: Albuterol ud Inhalation HHN SCH ×2 (17:37→17:40)
[2017-04-01 18:00] VITALS: BP 102/65
[2017-04-01 18:00] LABS: ANION GAP 7 mmol/L (5-15); BASOPHILS % (AUTO) 0.9 % (0.0-2.0); BLOOD UREA NITROGEN 14 mg/dL (7-18); CALCIUM 8.6 MG/DL (8.5-10.1); CARBON DIOXIDE 25 MMOL/L (21-32); CHLORIDE 106 MMOL/L (98-107); CREATININE 0.8 MG/DL (0.55-1.30); EOSINOPHILS % (AUTO) 5.7 % (0.0-3.0); HEMATOCRIT 42.9 % (37.0-47.0); LYMPHOCYTES % (AUTO) 27.6 % (20.0-45.0); MEAN CORPUSCULAR VOLUME 93 FL (80-99); MONOCYTES % (AUTO) 10.7 % (1.0-10.0); PLATELET COUNT 273 K/UL (150-450); POTASSIUM 3.7 MMOL/L (3.5-5.1); RED BLOOD COUNT 4.63 M/UL (4.20-5.40); RED CELL DISTRIBUTION WIDTH 11.2 % (11.6-14.8); SODIUM 138 MMOL/L (136-145); WHITE BLOOD COUNT 8.3 K/UL (4.8-10.8)
[2017-04-01 18:05] LABS: ALANINE AMINOTRANSFERASE 17 U/L (12-78); ALBUMIN 3.5 G/DL (3.4-5.0); ALBUMIN/GLOBULIN RATIO 1.2 (1.0-2.7); ALKALINE PHOSPHATASE 77 U/L (46-116); ASPARTATE AMINO TRANSFERASE 11 U/L (15-37); BILIRUBIN,TOTAL 0.2 MG/DL (0.2-1.0)
[2017-04-01 18:11] LABS: APPEARANCE,URINE SLIGHTLY CLOUDY; BILIRUBIN, URINE NEGATIVE (NEGATIVE); COLOR,URINE AMBER; GLUCOSE, URINE (UA) NEGATIVE (NEGATIVE); KETONES,URINE NEGATIVE (NEGATIVE); LEUKOCYTE ESTERASE ,URINE 3+ (NEGATIVE); NITRITE,URINE NEGATIVE (NEGATIVE); PH,URINE 6 (4.5-8.0); PROTEIN,URINE 2+ (NEGATIVE); UROBILINOGEN,URINE NORMAL MG/DL (0.0-1.0)
[2017-04-01] MEDS ORDERED: PREDNISONE20 MG ORAL (19:37)
[2017-04-01] MEDS ORDERED: ALBUTEROL2.5 MG/3 M HHN (19:37)
[2017-04-01] MEDS ORDERED: IPRATROPIU0.2 MG/1 M HHN (19:37)
[2017-04-01] MEDS ORDERED: NORCO 5-325 TA1 EACH ORAL (19:37)
[2017-04-01] MEDS ORDERED: AMOXICILLIN500 MG ORAL (19:37)
[2017-04-01 20:06] VITALS: BP 102/65
--- NOTE | 2017-04-01 21:18 | Emergency Room Report ---
History of Present Illness General Chief Complaint: Abdominal Pain Source: Patient Present Illness HPI 36-year-old female presents ED for evaluation. Notes abdominal pain for last 2 days, cramping, 8/10, nonradiating. Also complaining of cough and wheezing. History of COPD/emphysema. States cough is productive with yellowish phlegm. Denies fevers or chills. Denies chest pain. No other aggravating relieving factors. Denies any other associated symptoms Allergies: Coded Allergies: No Known Allergies (Unverified , 09/25/15) Patient History Past Medical History: asthma, COPD Past Surgical History: none Pertinent Family History: none Social History: Denies: smoking, alcohol use, drug use Last Menstrual Period: 2015 Now: No Immunizations: UTD Reviewed Nursing Documentation: PMH: Agreed, PSxH: Agreed Nursing Documentation-PMH Hx Cardiac Problems: No Hx Hypertension: No Hx Pacemaker: No Hx Asthma: Yes Hx COPD: Yes Hx Diabetes: No Hx Cancer: No Hx Gastrointestinal Problems: No Hx Dialysis: No Hx Neurological Problems: No Hx Cerebrovascular Accident: No Hx Seizures: No Review of Systems All Other Systems: negative except mentioned in HPI Physical Exam Vital Signs Date Time Temp Pulse Resp B/P (MAP) Pulse Ox O2 Delivery O2 Flow Rate FiO2 04/01/17 16:56 98.4 121 18 99/65 95 Room Air 04/01/17 17:45 21 04/01/17 17:54 21.0 Sp02 EP Interpretation: reviewed, normal General Appearance: no apparent distress, alert, GCS 15, non-toxic Head: normocephalic Eyes: bilateral eye normal inspection, bilateral eye PERRL ENT: normal ENT inspection Neck: normal inspection Respiratory: decreased breath sounds, wheezing Cardiovascular #1: regular rate, rhythm, no edema Gastrointestinal: normal bowel sounds, soft, non-distended, no guarding, no rebound, tenderness Rectal: deferred Genitourinary: no CVA tenderness Musculoskeletal: normal inspection Neurologic: alert, oriented x3, responsive, motor strength/tone normal, sensory intact, speech normal Psychiatric: normal inspection Skin: normal inspection Lymphatic: normal inspection Medical Decision Making Diagnostic Impression: Primary Impression: COPD (chronic obstructive pulmonary disease) Qualified Codes: J44.9 - Chronic obstructive pulmonary disease, unspecified Additional Impression: Abdominal pain Qualified Codes: R10.30 - Lower abdominal pain, unspecified ER Course Hospital Course 36-year-old F presents to ED with abdominal pain, cough wheezing Differential diagnosis includes-appendicitis, cholecystitis, small bowel obstruction, gastritis, Clinical course Patient placed on stretcher. After initial history and physical I ordered labs , IV fluids, pain medications and CT scan. patient given solumedrol, nebulizer treatments Labs - no leukocytosis, electrolytes ok, LFTs normal, UA unremarkable CT scan shows possible multilocular cystic mass in midline of pelvis On reassessment breathing has improved. Given history of COPD I will prescribe antibiotics. discussed findings of the cystic mass in the pelvis. Recommend ultrasound. Patient states she needs to leave but will come back tomorrow if needed. Given that patient appears nontoxic, normal labs I believe patient be safely discharged pending close followup I feel this is a highly complex case requiring extensive working including EKG/ Rhythm strip, Xray/CT/US, Blood/urine lab work, repeat exams while in ED, and administration of strong opiates/narcotics for pain control, admission to hospital or close patient follow up. Diagnosis - COPD, abdominal pain Stable and discharged to home with Rx amoxicillin, albuterol/atrovent, norco. Followup with PMD. Return to ED if symptoms recur or worsen Labs Test 04/01/17 17:38 White Blood Count 8.3 K/UL (4.8-10.8) Red Blood Count 4.63 M/UL (4.20-5.40) Hemoglobin 15.0 G/DL (12.0-16.0) Hematocrit 42.9 % (37.0-47.0) Mean Corpuscular Volume 93 FL (80-99) Mean Corpuscular Hemoglobin 32.4 PG (27.0-31.0) Mean Corpuscular Hemoglobin Concent 34.9 G/DL (32.0-36.0) Red Cell Distribution Width 11.2 % (11.6-14.8) Platelet Count 273 K/UL (150-450) Mean Platelet Volume 8.0 FL (6.5-10.1) Neutrophils (%) (Auto) 55.0 % (45.0-75.0) Lymphocytes (%) (Auto) 27.6 % (20.0-45.0) Monocytes (%) (Auto) 10.7 % (1.0-10.0) Eosinophils (%) (Auto) 5.7 % (0.0-3.0) Basophils (%) (Auto) 0.9 % (0.0-2.0) Urine Color Elinor Urine Appearance Slightly cloudy Urine pH 6 (4.5-8.0) Urine Specific [place] 1.020 (1.005-1.035) Urine Protein 2+ (NEGATIVE) Urine Glucose (UA) Negative (NEGATIVE) Urine Ketones Negative (NEGATIVE) Urine Occult Blood 3+ (NEGATIVE) Urine Nitrite Negative (NEGATIVE) Urine Bilirubin Negative (NEGATIVE) Urine Ictotest Negative Urine Urobilinogen Normal MG/DL (0.0-1.0) Urine Leukocyte Esterase 3+ (NEGATIVE) Urine RBC 10-15 /HPF (0 - 2) Urine WBC 15-20 /HPF (0 - 2) Urine Squamous Epithelial Cells Moderate /LPF (NONE/OCC) Urine Bacteria Many /HPF (NONE) Urine Mucus Few /LPF (NONE/OCC) Urine HCG, Qualitative Negative Sodium Level 138 MMOL/L (136-145) Potassium Level 3.7 MMOL/L (3.5-5.1) Chloride Level 106 MMOL/L (98-107) Carbon Dioxide Level 25 MMOL/L (21-32) Anion Gap 7 mmol/L (5-15) Blood Urea Nitrogen 14 mg/dL (7-18) Creatinine 0.8 MG/DL (0.55-1.30) Estimat Glomerular Filtration Rate > 60 mL/min (>60) Glucose Level 91 MG/DL (74-106) Calcium Level 8.6 MG/DL (8.5-10.1) Total Bilirubin 0.2 MG/DL (0.2-1.0) Aspartate Amino Transf (AST/SGOT) 11 U/L (15-37) Alanine Aminotransferase (ALT/SGPT) 17 U/L (12-78) Alkaline Phosphatase 77 U/L (46-116) Total Protein 6.5 G/DL (6.4-8.2) Albumin 3.5 G/DL (3.4-5.0) Globulin 3.0 g/dL Albumin/Globulin Ratio 1.2 (1.0-2.7) Lipase 108 U/L (73-393) CT/MRI/US Diagnostic Results CT/MRI/US Diagnostic Results : Imaging Test Ordered: CT A/P Impression Multilocular cystic mass lesion in the pelvis at midline and into the right, measures about 6 cm. Last Vital Signs Date Time Temp Pulse Resp B/P (MAP) Pulse Ox O2 Delivery O2 Flow Rate FiO2 04/01/17 20:06 100 20 102/65 100 Room Air 04/01/17 18:00 98.0 04/01/17 17:54 21.0 04/01/17 17:45 21 Status: improved Disposition: HOME, SELF-CARE Condition: Stable Scripts Hydrocodone Bit/Acetaminophen 5-325* (NORCO 5-325*) 1 Each Tablet 1 TAB ORAL Q6H Y for For Pain, #10 TAB 0 Refills Prov: JOSE ESPINOZA M.D. 04/01/17 Amoxicillin* (AMOXIL*) 500 Mg Capsule 500 MG ORAL THREE TIMES A DAY, #21 CAP Prov: JOSE ESPINOZA M.D. 04/01/17 Prednisone* (PREDNISONE*) 20 Mg Tablet 40 MG ORAL DAILY, #10 TAB Prov: JOSE ESPINOZA M.D. 04/01/17 Ipratropium [place] 0.5MG/2.5ML (IPRATROPIUM BROMIDE 0.5MG/2.5ML) 0.2 Mg/1 Ml Solution 0.5 MG HHN Q6H Y for Shortness of Breath, #28 EA Prov: JOSE ESPINOZA M.D. 04/01/17 Albuterol Sulfate* (ALBUTEROL SULFATE HHN*) 2.5 Mg/3 Ml Vial.neb 2.5 MG HHN Q4H Y for Shortness of Breath, #25 VIAL Prov: JOSE ESPINOZA M.D. 04/01/17 Patient Instructions: Acute Bronchitis, [id number] JOSE ESPINOZA M.D. Apr 01, 2017 21:18
--- NOTE | 2017-04-02 10:15 | Diagnostic Imaging Report ---
Clinical Indication: Abdominal pain Technique: No oral contrast utilized, per emergency room physician request. IV administration nonionic contrast. Venous phase spiral acquisition obtained through the abdomen and pelvis. Multiplanar reconstructions were generated. Total dose length product 582.74 mGycm. CTDIvol(s) 12.1 mGy. Dose reduction achieved using automated exposure control Comparison: none Findings: The right ovary is enlarged, contains 2 cysts, the larger measuring 4.5 cm, the smaller measuring 2.2 cm. It demonstrates wall thickening. The left ovary is unremarkable. Trace free pelvic fluid is demonstrated. No evidence of diverticulosis or diverticulitis. There is broad-based diastasis of the rectus abdominis tendon with anterior protrusion of the abdominal contents. The appendix is normal. There is equivocal mild wall thickening of proximal small bowel loops. No small bowel distention. No free or loculated intraperitoneal air is evident. Distal esophagus, stomach, duodenum are unremarkable. The gallbladder is nondistended. The liver, bile ducts, pancreas are unremarkable. The spleen demonstrates a single calcification. The adrenals and kidneys are unremarkable. No retroperitoneal or mesenteric mass or adenopathy. The lungs are somewhat hyperinflated. There is scarring in the lingula. The bones are unremarkable. Impression: Enlarged right ovary with thick wall and 2 cysts. This raises concern for ovarian neoplasm. Ovarian torsion also a possibility. Correlate with clinical findings and recommend follow-up pelvic sonography. Trace free pelvic fluid, may be physiologic or related to the above Equivocal mild small bowel wall thickening a mild enteritis changes not completely excludable Mild pulmonary hyperinflation, consistent with known history of asthma. 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 This essentially agrees with the preliminary interpretation provided overnight by [facility], with the exception that the possibility of ovarian torsion was not discussed in the differential of the ovarian findings. This possibility was discussed by phone with Dr. Munoz in the emergency room at the time of interpretation The CT scanner at [facility] is accredited by the [employer] and the scans are performed using protocols designed to limit radiation exposure to as low as reasonably achievable to attain images of sufficient resolution adequate for diagnostic evaluation.
== END 2017-04-01 20:09 | disposition home or self-care (01) ==
LOC: EMR 18:53
DX: J44.9 Chronic obstructive pulmonary disease, unspecified (principal); R10.9 Unspecified abdominal pain; N83.201 Unspecified ovarian cyst, right side; D73.89 Other diseases of spleen
CPT/HCPCS: 36415; 74177; 80053; 81003; 81025; 83690; 85025; 87086; 94640; 94664; 96361; 96374; 96375; 99284; J2405; J2930; J7040; Q9967

== ENCOUNTER 2018-08-09 12:23 | Emergency (ER) | payer OTHER ==
[~2018-08-09] VITALS: Ht 165.1 cm; Wt 81.6 kg
[~2018-08-09 12:23] MED LIST changes: +ALBUTEROL2.5 MG/3 M HHN; +AMOXICILLIN500 MG ORAL; +IPRATROPIU0.2 MG/1 M HHN; +NORCO 5-325 TA1 EACH ORAL; +PREDNISONE20 MG ORAL
[2018-08-09 12:36] VITALS: BP 157/77
--- NOTE | 2018-08-09 12:36 | NUR ---
ED Nurse Note: PT FROM HOME CAME IN DUE TO SOB WITH WHEEZING X 2 DAYS. HX OF COPD AND EMPHYSEMA. PT IS AAO X4, AMBULATORY WITH SOB AT REST. 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 AUDIBLE WHEEZING NOTED. RT CALLED FOR BREATHING TREATMENT.
--- NOTE | 2018-08-09 12:40 | NUR ---
ED Nurse Note: URINE SPECIMEN COLLECTED THEN SENT.
[2018-08-09] MEDS ORDERED: Dexamethasone 4mg/ml vial IM ONE (12:45)
[2018-08-09] MEDS ORDERED: Dexamethasone 4mg/ml vial IVP ONE (12:45)
[2018-08-09] MEDS ORDERED: Albuterol/Ipratropium 3ml neb HHN ONE ×2 (12:45→13:15)
--- NOTE | 2018-08-09 13:13 | Emergency Room Report ---
History of Present Illness General Chief Complaint: Dyspnea/Respdistress Present Illness HPI 37-year-old female with significant past medical history of COPD and asthma, here complaining of asthma exacerbation and shortness of breath. Patient reporting 3 days of cough with phlegm. And sore throat. Denies fever and chills, congestion, nausea vomiting, abdominal pain. Patient has been using her albuterol inhaler, albuterol pills, and all other medication that she has been prescribed by her primary care provider for COPD. She further reports that she is very anxious due to her father being in the hospital and to call condition. Complains of chest pain with shortness of breath for the past 3 days however denies pain radiation to her jaw and left arm. Denies palpitation , dizziness, headache, blurry vision. Allergies: Coded Allergies: No Known Allergies (Unverified , 09/25/15) Patient History Past Medical History: see triage record Past Surgical History: unable to obtain Social History: Reports: smoking - tobacco Last Menstrual Period: none since 2015 Now: No : 8 Para: 4 Immunizations: UTD Reviewed Nursing Documentation: PMH: Agreed; PSxH: Agreed Nursing Documentation-PMH Hx Cardiac Problems: No Hx Hypertension: No Hx Pacemaker: No Hx Asthma: Yes Hx COPD: Yes Hx Diabetes: No Hx Cancer: No Hx Gastrointestinal Problems: No Hx Dialysis: No Hx Neurological Problems: No Hx Cerebrovascular Accident: No Hx Seizures: No Review of Systems All Other Systems: negative except mentioned in HPI Physical Exam Vital Signs Date Time Temp Pulse Resp B/P (MAP) Pulse Ox O2 Delivery O2 Flow Rate FiO2 08/09/18 12:26 98.8 70 18 126/76 (93) 92 Room Air 08/09/18 12:49 21 Sp02 EP Interpretation: reviewed, normal General Appearance: alert, GCS 15, mild distress Head: normocephalic, atraumatic Eyes: bilateral eye normal inspection, bilateral eye PERRL ENT: normal ENT inspection, hearing grossly normal, normal pharynx Neck: normal inspection, full range of motion, thyroid normal Respiratory: no rhonchi, no respiratory distress, no retraction, no accessory muscle use, wheezing Cardiovascular #1: normal inspection, regular rate, rhythm, no edema, no murmur , normal capillary refill Cardiovascular #2: 2+ radial (R), 2+ radial (L), 2+ dorsalis pedis (R), 2+ dorsalis pedis (L) Gastrointestinal: normal inspection, soft Rectal: deferred Genitourinary: no CVA tenderness Musculoskeletal: normal inspection, back normal Neurologic: normal inspection, alert, oriented x3 Psychiatric: normal inspection, judgement/insight normal Skin: normal inspection, normal color, no rash, warm/dry, palpation normal Lymphatic: normal inspection, no adenopathy Medical Decision Making PA Attestation All my diagnosis and treatment plans were reviewed ad discussed with my supervising physician Dr. Tilley Diagnostic Impression: Primary Impression: Asthma exacerbation Additional Impression: Bronchitis ER Course 37-year-old female with significant past medical history of COPD and asthma, here complaining of asthma exacerbation and shortness of breath. Patient reporting 3 days of cough with phlegm. And sore throat. Denies fever and chills, congestion, nausea vomiting, abdominal pain. Patient has been using her albuterol inhaler, albuterol pills, and all other medication that she has been prescribed by her primary care provider for COPD. She further reports that she is very anxious due to her father being in the hospital and to call condition. Complains of chest pain with shortness of breath for the past 3 days however denies pain radiation to her jaw and left arm. Denies palpitation , dizziness, headache, blurry vision. Ddx considered but are not limited to: CA, Angina, COPD, GERD, asthma exacerbation, bronchitis Vital signs: are WNL, pt. is afebrile H&PE are most consistent with asthma exacerbation and bronchitis ORDERS: Chest XR, urine paretic, albuterol ipratropium nebulizer treatment 2 doses, dexamethasone 10 mg IM, azithromycin, Phenergan, prednisone ED INTERVENTIONS: None required at this time. PT keeps insisting for Phenergan with codeine And I gave her limited amount for nighttime only as it is not contraindicated to take consistently with Ativan. Patient is asking for oxygen and also further action for COPD and CT scan I told her that she needs to follow-up with her clinical services specialist she mentioned that her clinical services specialist did not do anything last month that she visited with her and I told her that she needs to follow-up with her clinical services specialist regarding her chronic COPD. Patient has O2 sat of 97% at time of discharge and stable. Patient is sitting comfortably in the bed texting and talking on the phone however every time that I walk and she complains of shortness of breath and gasps for air however her vitals were within normal limits and she was ready to be discharged at this time DISCHARGE: At this time pt. is stable for d/c to home. Will provide printed patient care instructions, and any necessary prescriptions. Care plan and follow up instructions have been discussed with the patient prior to discharge. Chest X-Ray Diagnostic Results Chest X-Ray Diagnostic Results : Chest X-Ray Ordered: Yes # of Views/Limited/Complete: 1 View Indication: Shortness of Breath EP Interpretation: Yes DARREL Xray: Interpretation reviewed, by supervising MD, and agrees with findings. Interpretation: no consolidation, no effusion, no pneumothorax, other - no acute process Impression: No acute disease Electronically Signed by: terry knight PA-C Last Vital Signs Date Time Temp Pulse Resp B/P (MAP) Pulse Ox O2 Delivery O2 Flow Rate FiO2 08/09/18 13:06 110 20 97 Room Air 21 08/09/18 12:36 98.6 157/77 Disposition: HOME, SELF-CARE Condition: Stable Scripts Prednisone (Prednisone) 20 Mg Tablet 20 MG PO BID for 5 Days, #10 TAB Prov: Terry Dodd 08/09/18 Promethazine Hcl (PROMETHAZINE HCL*) 6.25 Mg/5 Ml Syrup 5 ML ORAL Q8HR, #60 ML 0 Refills Prov: Terry Dodd 08/09/18 Codeine/Promethazine Hcl* (PROMETHAZINE-CODEINE SYRUP*) 118 Ml Syrup 5 ML ORAL BEDTIME PRN for For Cough, #30 ML 0 Refills Prov: Terry Dodd 08/09/18 Azithromycin* (ZITHROMAX*) 250 Mg Tablet 250 MG ORAL DAILY, #6 TAB 0 Refills Take two tables once daily for 1 day, then one tablet once daily for 4 days. Prov: Terry Dodd 08/09/18 Patient Instructions: Acute Bronchitis, [id number], Asthma, Adult, Easy-to- Read, Shortness of Breath, [id number] Terry Dodd Aug 09, 2018 13:13
--- NOTE | 2018-08-09 13:25 | NUR ---
ED Nurse Note: PT SPEAKING ON HER PHONE IN FULL SENTENCES. NO ACUTE DISTRESS AT THIS TIME.
[2018-08-09] MEDS ORDERED: ZITHROMAX250 MG ORAL (13:35)
[2018-08-09] MEDS ORDERED: PROMETHAZI6.25 MG/1 ORAL (13:35)
[2018-08-09] MEDS ORDERED: PREDNISONE20 M1 PO (13:35)
[2018-08-09] MEDS ORDERED: PROMETHAZINE-C118 M1 ORAL (13:35)
--- NOTE | 2018-08-09 13:35 | Diagnostic Imaging Report ---
EXAM: XR Chest, 1 View CLINICAL HISTORY: ASTHMA TECHNIQUE: Frontal view of the chest. COMPARISON: 08/08/16. FINDINGS: Lungs: Pulmonary hyperexpansion and coarse markings would support provided history of reactive airways disease. No consolidation. Pleural space: Unremarkable. No pneumothorax. Heart: Unremarkable. No cardiomegaly. Mediastinum: Unremarkable. Bones/joints: Unremarkable. IMPRESSION: Pulmonary hyperexpansion and coarse markings would support provided history of reactive airways disease. No consolidation.
[2018-08-09 13:42] VITALS: BP 109/93
--- NOTE | 2018-08-09 13:42 | NUR ---
ER DISCHARGE NOTE: Patient is cleared to be discharged per PA, pt is aox4, on room air, with stable vital signs. pt was given dc and prescription instructions, pt was able to verbalize understanding, pt id band removed. pt is able to ambulate with steady gait. pt took all belongings and left with her son.
== END 2018-08-09 13:42 | disposition home or self-care (01) ==
LOC: EMR 13:15
DX: J45.901 Unspecified asthma with (acute) exacerbation (principal); J40 Bronchitis, not specified as acute or chronic; J44.9 Chronic obstructive pulmonary disease, unspecified; F17.200 Nicotine dependence, unspecified, uncomplicated
CPT/HCPCS: 71045; 81025; 94640; 94664; 96372; 96374; 99284; J1100; J7620

== ENCOUNTER 2018-09-21 14:00 | Inpatient (IN) | payer OTHER ==
[~2018-09-21] VITALS: Ht 157.5 cm; Wt 82.6 kg
[~2018-09-21 14:00] MED LIST changes: +PREDNISONE20 M1 PO; +PROMETHAZI6.25 MG/1 ORAL; +PROMETHAZINE-C118 M1 ORAL; +ZITHROMAX250 MG ORAL
--- NOTE | 2018-09-21 14:06 | Emergency Room Report ---
History of Present Illness General Chief Complaint: Shortness of breath Source: Patient Present Illness HPI 37-year-old female history of asthma, COPD presents with shortness of breath that started 1 day prior to arrival, constant in nature, worsening over the past day, she denies any worsening factors, alleviated with beta agonist, no pain, severity is severe. Patient has difficulty speaking Allergies: Coded Allergies: No Known Allergies (Unverified , 09/25/15) Patient History Limited by: medical condition - Acutely short of breath Past Medical History: see triage record Social History: Reports: smoking - former smoker Reviewed Nursing Documentation: PMH: Agreed; PSxH: Agreed Nursing Documentation-PMH Hx Cardiac Problems: No Hx Hypertension: No Hx Pacemaker: No Hx Asthma: Yes Hx COPD: Yes Hx Diabetes: No Hx Cancer: No Hx Gastrointestinal Problems: No Hx Dialysis: No Hx Neurological Problems: No Hx Cerebrovascular Accident: No Hx Seizures: No Review of Systems Respiratory: Reports: shortness of breath, wheezing Cardiovascular: Reports: chest pain All Other Systems: negative except mentioned in HPI Physical Exam Last 24 Hour Vital Signs Date Time Temp Pulse Resp B/P (MAP) Pulse Ox O2 Delivery O2 Flow Rate FiO2 09/21/18 14:13 92 17 96 Room Air 21 09/21/18 14:10 113 28 Room Air 91 09/21/18 14:10 98.2 112 28 187/90 91 Room Air 09/21/18 14:03 95 30 93 Room Air Sp02 EP Interpretation: reviewed, abnormal General Appearance: alert, moderate distress Head: normocephalic, atraumatic Eyes: bilateral eye PERRL, bilateral eye EOMI ENT: uvula midline, moist mucus membranes Neck: supple, thyroid normal, supple/symm/no masses Respiratory: accessory muscle use, wheezing - Moderate wheezing Cardiovascular #1: normal peripheral pulses, no edema, no gallop, no murmur, tachycardia Gastrointestinal: non tender, soft, no guarding, no rebound Musculoskeletal: normal inspection Neurologic: alert, oriented x3 Psychiatric: mood/affect normal Skin: no rash, warm/dry Procedures Critical Care Time Critical Care Time Given the critical condition in which the patient arrived, the patient was immediately assessed by myself and the nurse, and cardiac monitoring initiated due to the potential for rapid decompensation of the patient's clinical condition. During the course of the patient's stay, I spent a considerable amount of time at the bedside performing serial re-evaluations of the patient's hemodynamic and clinical status because of the recognized potential threat to life or limb in this condition. I then had a chance to review not only all of the available current laboratory and radiographic studies obtained today, but I also reviewed old records available to me at the time. Additionally, any ancillary information available including physiology teacher records were reviewed. Sequential vital signs were obtained. Patient with acute shortness of breath, requiring BiPAP, steroids, 6 rounds of duo nebs, patient at risk of respiratory decompensation Critical Care time of 31 minutes was performed exclusive of billable procedures. Medical Decision Making Diagnostic Impression: Primary Impression: COPD (chronic obstructive pulmonary disease) Additional Impression: Asthma exacerbation with COPD (chronic obstructive pulmonary disease) ER Course 37-year-old female presents with acute dyspnea, differential includes CHF exacerbation, asthma exacerbation, COPD exacerbation Patient came critically ill, short of breath, dyspneic, accessory muscle use, duo nebs, steroids, magnesium was started emergently, Reevaluation 2:30 PM, after BiPAP administration patient improved Attempted to remove BiPAP at 2:55 PM, patient became short of breath, will keep BiPAP on Admitted to hospitalist at 3:04 PM Laboratory Tests Test 09/21/18 14:05 White Blood Count 5.9 K/UL (4.8-10.8) Red Blood Count 4.88 M/UL (4.20-5.40) Hemoglobin 15.1 G/DL (12.0-16.0) Hematocrit 43.6 % (37.0-47.0) Mean Corpuscular Volume 89 FL (80-99) Mean Corpuscular Hemoglobin 31.0 PG (27.0-31.0) Mean Corpuscular Hemoglobin Concent 34.8 G/DL (32.0-36.0) Red Cell Distribution Width 10.5 % (11.6-14.8) L Platelet Count 302 K/UL (150-450) Mean Platelet Volume 6.6 FL (6.5-10.1) Neutrophils (%) (Auto) 39.5 % (45.0-75.0) L Lymphocytes (%) (Auto) 37.7 % (20.0-45.0) Monocytes (%) (Auto) 7.9 % (1.0-10.0) Eosinophils (%) (Auto) 13.5 % (0.0-3.0) H Basophils (%) (Auto) 1.5 % (0.0-2.0) Urine HCG, Qualitative Pending Sodium Level 142 MMOL/L (136-145) Potassium Level 3.5 MMOL/L (3.5-5.1) Chloride Level 108 MMOL/L (98-107) H Carbon Dioxide Level 25 MMOL/L (21-32) Anion Gap 9 mmol/L (5-15) Blood Urea Nitrogen 9 mg/dL (7-18) Creatinine 0.9 MG/DL (0.55-1.30) Estimate Glomerular Filtration Rate > 60 mL/min (>60) Glucose Level 103 MG/DL (74-106) Calcium Level 9.1 MG/DL (8.5-10.1) Total Bilirubin 0.5 MG/DL (0.2-1.0) Aspartate Amino Transferase (AST) 16 U/L (15-37) Alanine Aminotransferase (ALT) 14 U/L (12-78) Alkaline Phosphatase 112 U/L (46-116) Total Protein 7.1 G/DL (6.4-8.2) Albumin 3.8 G/DL (3.4-5.0) Globulin 3.3 g/dL Albumin/Globulin Ratio 1.2 (1.0-2.7) Human Chorionic Gonadotropin, Quant < 1 mIU/mL (1-6) L EKG Diagnostic Results EKG Time: 14:08 EP Interpretation: NSR, rate 100, QTc 472, normal axis, no acute ST elevations Rate: normal Rhythm: NSR ST Segments: no acute changes ASA given to the pt in ED: No Rhythm Strip Diag. Results Rhythm Strip Time: 14:08 EP Interpretation: yes Rate: 110 Rhythm: other - Sinus tachycardia Chest X-Ray Diagnostic Results Chest X-Ray Diagnostic Results : Chest X-Ray Ordered: Yes # of Views/Limited/Complete: 1 View Indication: Shortness of Breath EP Interpretation: Yes Interpretation: no consolidation, no pneumothorax, no acute cardiopulmonary disease Impression: No acute disease Electronically Signed by: Isaac Garrett MD Disposition: ADMITTED INPATIENT Condition: Stable Isaac Garrett MD Sep 21, 2018 14:06
--- NOTE | 2018-09-21 14:06 | NUR ---
ED Nurse Note: Patient walked in to ER c/o severe SOB with wheezing noted. pt aao x4 and ambulatory. currently pt is restless and anxious and screaming "I can't breath, I can't breath!!." skin flushed and labored breathing with SOB noted. RT paged and ERMD at bedside.
[2018-09-21 14:10] VITALS: BP 187/90
[2018-09-21] MEDS: Albuterol ud Inhalation HHN SCH ×6 (14:13→16:00)
[2018-09-21] MEDS: Ipratropium 0.02% Inh Soln 2.5ml UD HHN SCH ×6 (14:13→16:00)
[2018-09-21] MEDS ORDERED: Solu-MEDROL 125mg Inj IVP ONE (14:15)
--- NOTE | 2018-09-21 14:16 | NUR ---
ED Nurse Note: x-ray at bedside.
[2018-09-21 14:24] LABS: BASOPHILS % (AUTO) 1.5 % (0.0-2.0); EOSINOPHILS % (AUTO) 13.5 % (0.0-3.0); HEMATOCRIT 43.6 % (37.0-47.0); HEMOGLOBIN 15.1 G/DL (12.0-16.0); LYMPHOCYTES % (AUTO) 37.7 % (20.0-45.0); MEAN CORPUSCULAR VOLUME 89 FL (80-99); MONOCYTES % (AUTO) 7.9 % (1.0-10.0); NEUTROPHILS % (AUTO) 39.5 % (45.0-75.0); PLATELET COUNT 302 K/UL (150-450); RED BLOOD COUNT 4.88 M/UL (4.20-5.40); RED CELL DISTRIBUTION WIDTH 10.5 % (11.6-14.8); WHITE BLOOD COUNT 5.9 K/UL (4.8-10.8)
--- NOTE | 2018-09-21 14:32 | Diagnostic Imaging Report ---
Indication: Shortness of breath Technique: One view of the chest Comparison: none Findings: Lungs and pleural spaces are clear. Heart size is normal. Impression: No acute process. This agrees with the preliminary interpretation provided by the emergency room physician This agrees with the preliminary interpretation provided overnight by [facility] teleradiology service.
[2018-09-21 14:34] LABS: ANION GAP 9 mmol/L (5-15); BLOOD UREA NITROGEN 9 mg/dL (7-18); CALCIUM 9.1 MG/DL (8.5-10.1); CARBON DIOXIDE 25 MMOL/L (21-32); CHLORIDE 108 MMOL/L (98-107); CREATININE 0.9 MG/DL (0.55-1.30); POTASSIUM 3.5 MMOL/L (3.5-5.1); SODIUM 142 MMOL/L (136-145)
--- NOTE | 2018-09-21 14:35 | NUR ---
ED Nurse Note: Bi-pap initiated by RN at the bedside.
[2018-09-21 14:39] LABS: ALANINE AMINOTRANSFERASE 14 U/L (12-78); ALBUMIN 3.8 G/DL (3.4-5.0); ALBUMIN/GLOBULIN RATIO 1.2 (1.0-2.7); ALKALINE PHOSPHATASE 112 U/L (46-116); ASPARTATE AMINO TRANSFERASE 16 U/L (15-37); BILIRUBIN,TOTAL 0.5 MG/DL (0.2-1.0)
--- NOTE | 2018-09-21 15:03 | NUR ---
ED Nurse Note: pt vomited x2 saliva and clear.
--- NOTE | 2018-09-21 15:08 | NUR ---
ED Nurse Note: pt reported that feeling much better. VSS as documented. pt is laying high flower position and resting with Bipap on. Rt at bedside.
[2018-09-21 15:24] VITALS: BP 117/72
[2018-09-21] MEDS ORDERED: Morphine Sulfate 2mg/ml Inj(IV/IM USE ONLY) IVP PRN (15:38)
[2018-09-21] MEDS ORDERED: Albuterol/Ipratropium 3ml neb HHN PRN (15:45)
[2018-09-21] MEDS ORDERED: Milk of Magnesia 30ml Ud ORAL PRN (15:45)
[2018-09-21] MEDS ORDERED: LORazepam Inj 2mg/ml 1ml IV PRN (15:45)
--- NOTE | 2018-09-21 15:46 | NUR ---
ED Nurse Note: PER DR. SUAREZ, TRY TO WYIN PT. OFF FROM BIPAP BEFORE SENDING PT. UP
--- NOTE | 2018-09-21 15:50 | NUR ---
ED Nurse Note: pt feels better even without bipap. ERMD made aware. will monitor 10 more minutes and will downgrade to Telemetry unit.
--- NOTE | 2018-09-21 16:12 | NUR ---
ED Nurse Note: report given to JOAQUÍN Reynolds. per Gail the room will be ready in 10 minutes.
--- NOTE | 2018-09-21 16:22 | NUR ---
ED Nurse Note: pt left unit with 2 RNs in stable condition.
[2018-09-21] MEDS: Solu-MEDROL 125mg Inj IVP SCH ×2 (18:43→23:57)
[2018-09-21 18:51] VITALS: BP 115/59
--- NOTE | 2018-09-21 19:17 | NUR ---
NURSE NOTES: RECEIVED PATIENT SITTING IN BED AND HAVING DINNER. NO COMPLAINTS OF PAIN OR DISCOMFORT AT THIS TIME. FALL PRECAUTIONS IN PLACE: CALL LIGHT AND BEDSIDE TABLE WITHIN REACH AND BED IN LOW POSITION PLAN OF CARE REVIEWED.
--- NOTE | 2018-09-21 19:52 | NUR ---
HAND-OFF: Report given to JOAQUÍN Albrecht. Plan of care endorsed
[2018-09-21 20:00] VITALS: BP 124/93
[2018-09-21] MEDS: Albuterol/Ipratropium 3ml neb HHN SCH ×2 (20:07→23:13)
[2018-09-21] MEDS: Heparin 5000 units/ml inj SUBQ SCH (20:30)
[2018-09-22] VITALS: BP 109/51
[2018-09-22] MEDS: Albuterol/Ipratropium 3ml neb HHN SCH ×4 (02:45→15:11)
[2018-09-22 04:00] VITALS: BP 116/67
[2018-09-22] MEDS: Solu-MEDROL 125mg Inj IVP SCH ×3 (05:56→17:47)
--- NOTE | 2018-09-22 07:07 | NUR ---
HAND-OFF: Report given to JOAQUÍN CARY.PATIENT ASLEEP, NO SIGNS OF DISTRESS NOTED.
--- NOTE | 2018-09-22 07:23 | NUR ---
NURSE NOTES: Received report from JOAQUÍN Albrecht. Patient in bed resting, no active s/s cardiac, respiratory distress noticed at this time. Patient AOx4, SR with HR 85, IV on left AC 20G, asymptomatic, patent, intact. Patient on 2L oxygen via NC. Bed in lowest position, side rails upx2, call light within reach, bed alarm on. Will continue to monitor.
[2018-09-22 07:33] LABS: HEMATOCRIT 39.9 % (37.0-47.0); HEMOGLOBIN 13.6 G/DL (12.0-16.0); MEAN CORPUSCULAR VOLUME 91 FL (80-99); PLATELET COUNT 280 K/UL (150-450); RED BLOOD COUNT 4.41 M/UL (4.20-5.40); RED CELL DISTRIBUTION WIDTH 10.5 % (11.6-14.8); WHITE BLOOD COUNT 5.5 K/UL (4.8-10.8)
[2018-09-22 07:55] LABS: ANION GAP 9 mmol/L (5-15); BLOOD UREA NITROGEN 8 mg/dL (7-18); CALCIUM 8.9 MG/DL (8.5-10.1); CARBON DIOXIDE 23 MMOL/L (21-32); CHLORIDE 110 MMOL/L (98-107); CREATININE 0.8 MG/DL (0.55-1.30); POTASSIUM 3.4 MMOL/L (3.5-5.1); SODIUM 142 MMOL/L (136-145)
[2018-09-22 08:00] VITALS: BP 105/69
[2018-09-22] MEDS: Heparin 5000 units/ml inj SUBQ SCH (08:16)
--- NOTE | 2018-09-22 08:41 | NUR ---
CASE MANAGEMENT:REVIEW 37 YR OLD FEMALE PRESENTED TO ER CC; SOB AND AUDIBLE WHEEZING SI: COPD . ASTHMA 98.3 113 30 187/90 91% ON RA LABS ~ WNL IS:PLACED ON BIPAP DUONEB HHN Q15 MIN IV SOLUMEDROL IV MAG SULFATE 1L NS BOLUS : TO TELEMETRY UNIT IS: IV SOLUMEDROL 60MG Q6HRS DUONEB HHN Q4HRS RTC HEPARIN SQ Q12 INTERQUAL CRITERIA MET
--- NOTE | 2018-09-22 10:18 | NUR ---
NURSE NOTES: Called Dr. Sanches regarding patient SOB, O2 sat 98%, RT was on the bedside, HR 130s. No order given at this time. Will continue to monitor.
--- NOTE | 2018-09-22 10:32 | NUR ---
NURSE NOTES: Dr. Milan made aware of K level today 3.4. No order given at this time. Will continue to monitor.
--- NOTE | 2018-09-22 10:35 | NUR ---
NURSE NOTES: Per Dr. Milan, KCl 40mEq once PO for k level. Order noted, entered, carried out.
[2018-09-22 12:00] VITALS: BP 102/56
--- NOTE | 2018-09-22 13:05 | Diagnostic Imaging Report ---
Clinical Indication: Abnormal chest sounds, history of asthma, history COPD, shortness of breath one day prior to arrival Technique: Spiral acquisitions obtained through the chest. No IV contrast utilized, reason unstable. Multiplanar reconstructions generated. Total dose length product 649.74 mGycm. CTDIvol(s) 17.67 mGy. Dose reduction achieved using automated exposure control Comparison: none Findings:There is some image degradation due to motion artifact. Areas of scarring and/or atelectasis are seen at both lung bases, more on the left than on the right. There is also some focal atelectasis or scarring in the periphery of the right middle lobe. There is evidence of hyperinflation of the superior aspects of the bilateral upper lobes. No infiltrates, effusions, congestion, masses, or nodules. The heart size is normal. There is very focal anterior wall pericardial thickening versus fluid. No mediastinal or hilar mass or adenopathy. The included portion of the thyroid is unremarkable. No axillary or chest wall mass or adenopathy. The included upper abdominal anatomy demonstrates a calcification within the spleen. 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
--- NOTE | 2018-09-22 14:39 | NUR ---
*-* INSURANCE *-* ALL CLINICALS AND REVIEWS HAVE BEEN FAXED TO: [facility] [place] NCM: DHARA P- [phone] F- [phone]....REVIEW/CLINICAL
--- NOTE | 2018-09-22 16:45 | Consultation ---
DATE OF CONSULTATION: 09/22/2018 PULMONARY CONSULTATION CONSULTING PHYSICIAN: Devyn Sanches M.D. REFERRING PHYSICIAN: . REASON FOR CONSULTATION: Shortness of breath. HISTORY OF PRESENT ILLNESS: This is a 37-year-old female with a history of lung disease, who came to the hospital with shortness of breath. The patient states that she has been diagnosed with emphysema at this very hospital several years ago. She states she has been a smoker in the past, but has not smoked in over two years' period. She also sees her regular physician, Dr. Alondra Ann, who has been testing her, but currently she is only able to provide diagnosis of emphysema. The patient states that she has approximately 20 pack-history of smoking, but did not report going up with asthma. She has no other known pulmonary conditions. She denies any cardiac or any other medical issues. She came to the hospital with shortness of breath. She was seen and worked up, admitted to the hospital with diagnosis of asthma/emphysema, admitted to the hospital. PAST MEDICAL HISTORY: Pulmonary disease of unknown etiology and has history also of anxiety and depression. MEDICATIONS: The patient has been on Seroquel in the past. She also reports currently taking QVAR, Breo, and albuterol at home. REVIEW OF SYSTEMS: Denies any headaches, hematemesis, melena, hematochezia, night sweats, or weight loss. PHYSICAL EXAMINATION: GENERAL: Reveals a young female. HEENT: Unremarkable. CHEST: Diminished breath sounds bilaterally. HEART: Normal heart sounds. ABDOMEN: Soft. EXTREMITIES: There is no edema. NEUROLOGIC: Nonfocal. DIAGNOSTIC AND LABORATORY DATA: X-ray of chest shows hyperinflation. Lab testing is unremarkable. Normal CBC and BMP. Potassium is 3.4, glucose 136. IMPRESSION: 1. Underlying lung disease, most likely COPD versus asthma. 2. Significant psychological overlay. DISCUSSION: I have tried to contact her doctor, Dr. Daisy Ann, at her office at [facility], however, I have been advised that the doctor is only available on Fridays. I also tried to leave her a message on her cellphone, but I have not received a call back. It is unclear to me why this fairly young person with a moderate smoking history would have such severe emphysema. I concur with the use of albuterol in nebulizer form as well as Solu-Medrol and empiric antibiotics. I will obtain a CT of chest to delineate the pulmonary parenchyma and follow carefully with you. Devyn Sanches M.D. DR: GISSELLE JOB#: [id number] CC:
--- NOTE | 2018-09-22 17:16 | History and Physical ---
History of Present Illness General Date patient seen: Sep 22, 2018 Reason for Hospitalization: Dyspnea/Respdistress Present Illness HPI 37 year old female wiht PMh of COPD\ presented with complaints of cough, SOB, wheezing and chest tightness for past few days, not resolved with nebulizers at home therefore came to ED. Pt placed on bipap for respiratory distress, received IV steroids, mag and duonebs in ED. pt weaned off bipap prior to admission to floors. Pt seen at bedside states symptoms have improved. will wean off of NCO2, pt denies nausea, vomiting, fevers, chills, urinary complaints or abdominal complaints Allergies: Coded Allergies: No Known Allergies (Unverified , 09/25/15) Medication History Scheduled Methylprednisolone (Methylprednisolone*), 4 MG ORAL DIRECTED Quetiapine Fumarate (Seroquel Xr), 200 MG ORAL QHS, (Reported) Scheduled PRN Albuterol Sulfate* (Albuterol Sulfate Hhn*), 3 ML INH Q6H PRN for Shortness of Breath, (Reported) Albuterol Sulfate* (Albuterol Sulfate Hhn*), 2.5 MG HHN Q4H PRN for Shortness of Breath Codeine/Promethazine Hcl* (Promethazine-Codeine Syrup*), 5 ML ORAL BEDTIME PRN for For Cough Hydrocodone Bit/Acetaminophen 5-325* ([place] 5-325*), 1 TAB ORAL Q6H PRN for For Pain Ipratropium [place] 0.5MG/2.5ML (Ipratropium [place] 0.5MG/2.5ML), 0.5 MG HHN Q6H PRN for Shortness of Breath Miscellaneous Medications Vits W-Ca,Fe,Fa(<1MG) ( Formula), 1 EACH PO, (Reported) Discontinued Medications Amoxicillin* (Amoxil*), 500 MG ORAL THREE TIMES A DAY Discontinued Reason: discontinued med Azithromycin* (Zithromax*), 250 MG ORAL DAILY Discontinued Reason: MD discontinued med Prednisone (Prednisone), 20 MG PO BID Discontinued Reason: MD discontinued med Prednisone* (Prednisone*), 40 MG ORAL DAILY Discontinued Reason: MD discontinued med Promethazine Hcl (Promethazine Hcl*), 5 ML ORAL Q8HR Discontinued Reason: discontinued med Patient History Healthcare decision maker Resuscitation status Full Code Advanced Directive on File Review of Systems Constitutional: Reports: no symptoms Eye: Reports: no symptoms ENT: Reports: no symptoms Respiratory: Reports: cough, shortness of breath, wheezing Cardiovascular: Reports: no symptoms Gastrointestinal: Reports: no symptoms Genitourinary: Reports: no symptoms Musculoskeletal: Reports: no symptoms Skin: Reports: no symptoms Psychiatric: Reports: no symptoms Neurological: Reports: no symptoms Endocrine: Reports: no symptoms Hematologic/Lymphatic: Reports: no symptoms Physical Exam General Appearance: no apparent distress, alert Lines, tubes and drains: peripheral HEENT: normocephalic, atraumatic, anicteric Neck: non-tender, normal alignment Respiratory/Chest: no accessory muscle use, expiratory wheezing Cardiovascular/Chest: normal peripheral pulses, normal rate Abdomen: normal bowel sounds Skin Exam: normal pigmentation Neurologic: specimen technician II-XII grossly normal Last 24 Hour Vital Signs Date Time Temp Pulse Resp B/P (MAP) Pulse Ox O2 Delivery O2 Flow Rate FiO2 09/22/18 16:00 2.0 09/22/18 15:20 104 20 98 Nasal Cannula 2.0 09/22/18 15:06 108 20 93 Nasal Cannula 2.0 09/22/18 12:18 102 20 92 Nasal Cannula 2.0 09/22/18 12:04 109 20 96 Nasal Cannula 2.0 09/22/18 12:00 2.0 09/22/18 12:00 113 09/22/18 12:00 96.4 98 20 102/56 (71) 100 09/22/18 09:00 Nasal Cannula 2.0 09/22/18 08:38 100 20 99 Nasal Cannula 2.0 09/22/18 08:27 11 20 97 Nasal Cannula 2.0 09/22/18 08:00 97.6 87 20 105/69 (81) 96 09/22/18 08:00 96 09/22/18 08:00 2.0 09/22/18 04:00 2.0 09/22/18 04:00 85 09/22/18 04:00 97.6 96 24 116/67 (83) 94 09/22/18 02:56 98 18 100 Nasal Cannula 2.0 09/22/18 02:46 114 18 100 Nasal Cannula 1.0 09/22/18 00:00 97.3 98 24 109/51 (70) 100 09/22/18 00:00 108 09/21/18 23:22 99 18 98 Nasal Cannula 1.0 24 09/21/18 23:13 98 18 100 Nasal Cannula 2.0 28 09/21/18 21:00 2.0 09/21/18 21:00 Nasal Cannula 2.0 09/21/18 20:17 113 18 94 Nasal Cannula 2.0 09/21/18 20:09 110 18 87 Nasal Cannula 2.0 28 09/21/18 20:00 105 09/21/18 20:00 97.5 107 24 124/93 (103) 100 09/21/18 18:51 97.2 93 26 115/59 (77) 96 Intake and Output 09/21/18 09/22/18 18:59 06:59 Intake Total 1200 ml 360 ml Balance 1200 ml 360 ml Intake Oral 0 ml 360 ml IV Total 1200 ml # Voids 3 Laboratory Tests Test 09/22/18 06:04 White Blood Count 5.5 K/UL (4.8-10.8) Red Blood Count 4.41 M/UL (4.20-5.40) Hemoglobin 13.6 G/DL (12.0-16.0) Hematocrit 39.9 % (37.0-47.0) Mean Corpuscular Volume 91 FL (80-99) Mean Corpuscular Hemoglobin 30.8 PG (27.0-31.0) Mean Corpuscular Hemoglobin Concent 34.1 G/DL (32.0-36.0) Red Cell Distribution Width 10.5 % (11.6-14.8) L Platelet Count 280 K/UL (150-450) Mean Platelet Volume 7.2 FL (6.5-10.1) Neutrophils (%) (Auto) % (45.0-75.0) Lymphocytes (%) (Auto) % (20.0-45.0) Monocytes (%) (Auto) % (1.0-10.0) Eosinophils (%) (Auto) % (0.0-3.0) Basophils (%) (Auto) % (0.0-2.0) Differential Total Cells Counted 100 Neutrophils % (Manual) 80 % (45-75) H Lymphocytes % (Manual) 17 % (20-45) L Monocytes % (Manual) 3 % (1-10) Eosinophils % (Manual) 0 % (0-3) Basophils % (Manual) 0 % (0-2) Band Neutrophils 0 % (0-8) Platelet Estimate Adequate Platelet Morphology Normal Red Blood Cell Morphology Normal Sodium Level 142 MMOL/L (136-145) Potassium Level 3.4 MMOL/L (3.5-5.1) L Chloride Level 110 MMOL/L (98-107) H Carbon Dioxide Level 23 MMOL/L (21-32) Anion Gap 9 mmol/L (5-15) Blood Urea Nitrogen 8 mg/dL (7-18) Creatinine 0.8 MG/DL (0.55-1.30) Estimat Glomerular Filtration Rate > 60 mL/min (>60) Glucose Level 136 MG/DL (74-106) H Calcium Level 8.9 MG/DL (8.5-10.1) Height (Feet): 5 Height (Inches): 2.00 Weight (Pounds): 182 Medications Current Medications Medications (Trade) Dose Ordered Sig/Ashli Route PRN Reason Start Time Stop Time Status Last Admin Dose Admin Acetaminophen (Tylenol) 650 mg Q4H PRN ORAL Mild Pain (Pain Scale 1-3) 09/21/18 15:45 10/21/18 15:44 09/21/18 20:29 Albuterol/ Ipratropium (Albuterol/ Ipratropium) 3 ml Q4H PRN HHN Shortness of Breath 09/21/18 15:45 09/26/18 15:44 Albuterol/ Ipratropium (Albuterol/ Ipratropium) 3 ml Q4HRT HHN 09/21/18 19:00 09/26/18 18:59 09/22/18 15:11 Bisacodyl (Dulcolax) 10 mg DAILYPRN PRN RECTAL Constipation 09/21/18 15:45 10/21/18 15:44 Dextrose (Dextrose 50%) 25 ml Q30M PRN IV Hypoglycemia 09/21/18 15:45 10/21/18 15:44 Dextrose (Dextrose 50%) 50 ml Q30M PRN IV Hypoglycemia 09/21/18 15:45 10/21/18 15:44 Diphenhydramine HCl (Benadryl) 25 mg Q6H PRN ORAL Itching/Pruritis 09/21/18 15:45 10/21/18 15:44 Famotidine (Pepcid) 40 mg DAILY ORAL 09/22/18 09:00 10/22/18 08:59 09/22/18 08:15 Heparin Sodium (Porcine) (Heparin 5000 units/ml) 5,000 units EVERY 12 HOURS SUBQ 09/21/18 21:00 10/21/18 20:59 09/22/18 08:16 Lorazepam (Ativan 2mg/ml 1ml) 0.5 mg Q4H PRN IV For Anxiety 09/21/18 15:45 09/28/18 15:44 Magnesium Hydroxide (Mom) 30 ml HSPRN PRN ORAL Constipation 09/21/18 15:45 10/21/18 15:44 Methylprednisolone Sodium Succinate (Solu-MEDROL) 60 mg EVERY 6 HOURS IVP 09/21/18 18:00 10/21/18 17:59 09/22/18 11:11 Morphine Sulfate (Morphine Sulfate) 1 mg Q6H PRN IVP For Pain 09/21/18 15:38 09/28/18 15:37 Ondansetron HCl (Zofran) 4 mg Q6H PRN IVP Nausea & Vomiting 09/21/18 15:45 10/21/18 15:44 Assessment/Plan Assessment/Plan: 37 year old female admitted for COPD exacerbation #COPD exacerbation -cont IV steroids -duonebs q4 standing and PRN -pulmonary consult -NCO2 - wean as tolerated -azithromycin x 5 days -pending CT scan Code: Wire Twisting Machine Operator of note does not reflect time of encounter Brittany Milan MD Sep 22, 2018 17:16
[2018-09-22] MEDS ORDERED: MEDROL DOSEPAK4 MG ORAL (17:20)
[2018-09-22] MEDS ORDERED: PROMETHAZINE-C118 M1 ORAL (17:20)
--- NOTE | 2018-09-22 17:21 | Discharge Instructions ---
Discharge Instructions Discharge Instructions Follow up with: bag repairer Call MD/Return to Hospital if: intractable vomiting, and pain, worsening wheezing sob not resolved w nebul Resume Normal Activity?: Yes Activity: resume normal activities, as tolerated For Congestive Heart Failure Reminder Report to your physician any weight gain of 5 pounds or more in one week. Brittany Milan MD Sep 22, 2018 17:21
--- NOTE | 2018-09-22 17:30 | NUR ---
NURSE NOTES: Faxed prescription to [facility]. Per pharmacist, will deliver medication before they close.
--- NOTE | 2018-09-22 18:30 | NUR ---
NURSE NOTES: Medication got delivered, patient discharge to home per Dr. Milan. Patient's ID removed and placed in shredder. IV removed and monitoring tech returned to groundwater monitoring technician. Patient's family member picking up the patient with private vehicle per patient's preference in a stable condition. Patient discharged with all belongings.
--- NOTE | 2018-09-23 18:58 | Discharge Summary ---
Discharge Summary Hospital Course Date of Admission Sep 21, 2018 at 14:36 Date of Discharge Sep 22, 2018 at 18:48 Admitting Diagnosis COPD, ASTHMA EXACERBATION HPI Latonya Dobson is a 37 year old female who was admitted on Sep 21, 2018 at 14:36 for Chronic Obstructive Pulmonary Disease Exacerbation 37 year old female wiht PMh of COPD\ presented with complaints of cough, SOB, wheezing and chest tightness for past few days, not resolved with nebulizers at home therefore came to ED. Pt placed on bipap for respiratory distress, received IV steroids, mag and duonebs in ED. pt weaned off bipap prior to admission to floors. Pt seen at bedside states symptoms have improved. will wean off of NCO2, pt denies nausea, vomiting, fevers, chills, urinary complaints or abdominal complaints Consultations pulmonary Hospital Course 37 year old female admitted for COPD exacerbation #COPD exacerbation -cont IV steroids - transitioned to medrol pack on discharge -duonebs q4 PRN -f/u with outpatient canoe inspector final -saturating well on RA at time of discharge -azithromycin complete 5 days course Code: Feeder Catcher of note does not reflect time of encounter Discharge Medications New Medications: Methylprednisolone (Methylprednisolone*) 4MG Dspk 4 MG ORAL DIRECTED for 6 Days, #21 EA 0 Refills Day 1: Two tablets before breakfast, one after lunch, one after dinner, and two at bedtime. If started late in the day, take all six tablets at once or divide into two or three doses, unless otherwise directed by prescriber. Day 2: One tablet before breakfast, one after lunch, one after dinner, and two at bedtime Day 3: One tablet before breakfast, one after lunch, one after dinner, and one at bedtime Day 4: One tablet before breakfast, one after lunch, and one at bedtime Day 5: One tablet before breakfast and one at bedtime Day 6: One tablet before breakfast Continued Medications: Albuterol Sulfate* (Albuterol Sulfate Hhn*) 2.5 Mg/3 Ml Vial.neb 3 ML INH Q6H PRN for Shortness of Breath, #30 EA 0 Refills Albuterol Sulfate* (Albuterol Sulfate Hhn*) 2.5 Mg/3 Ml Vial.neb 2.5 MG HHN Q4H PRN for Shortness of Breath, #25 VIAL Codeine/Promethazine Hcl* (Promethazine-Codeine Syrup*) 118 Ml Syrup 5 ML ORAL BEDTIME PRN for For Cough, #30 ML 0 Refills (This prescription has been renewed) Hydrocodone Bit/Acetaminophen 5-325* ([place] 5-325*) 1 Each Tablet 1 TAB ORAL Q6H PRN for For Pain, #10 TAB 0 Refills Ipratropium [place] 0.5MG/2.5ML (Ipratropium [place] 0.5MG/2.5ML) 0.2 Mg/1 Ml Solution 0.5 MG HHN Q6H PRN for Shortness of Breath, #28 EA Vits W-Ca,Fe,Fa(<1MG) ( Formula) 1 Each Tablet 1 EACH PO, TAB Quetiapine Fumarate (Seroquel Xr) 200 Mg Tab.er.24h 200 MG ORAL QHS, TAB 0 Refills (This prescription has been renewed) Discontinued Medications: Amoxicillin* (Amoxil*) 500 Mg Capsule 500 MG ORAL THREE TIMES A DAY, #21 CAP Azithromycin* (Zithromax*) 250 Mg Tablet 250 MG ORAL DAILY, #6 TAB 0 Refills Take two tables once daily for 1 day, then one tablet once daily for 4 days. Prednisone (Prednisone) 20 Mg Tablet 20 MG PO BID for 5 Days, #10 TAB Prednisone* (Prednisone*) 20 Mg Tablet 40 MG ORAL DAILY, #10 TAB Promethazine Hcl (Promethazine Hcl*) 6.25 Mg/5 Ml Syrup 5 ML ORAL Q8HR, #60 ML 0 Refills Discharge Condition Upon Discharge: stable Discharge Disposition Patient was discharged to Discharge Instructions Discharge Instructions Follow up with: canoe inspector final Call MD/Return to Hospital if: intractable vomiting, and pain, worsening wheezing sob not resolved w nebul Activity: resume normal activities, as tolerated Brittany Milan MD Sep 23, 2018 18:58
== END 2018-09-22 18:48 | disposition home or self-care (01) | DRG 140 ==
LOC: EMR 14:20 → EDBEDREQ 14:26 → EDBEDREQSVC 14:26 → 2E 14:36 → EDBEDREQ 15:57 → EDBEDREQSVC 15:57 → EDBEDREQ 16:03
DX: J44.1 Chronic obstructive pulmonary disease with (acute) exacerbation (principal); F41.8 Other specified anxiety disorders; Z87.891 Personal history of nicotine dependence
CPT/HCPCS: 36415; 71045; 71250; 80048; 80053; 84702; 85007; 85025; 93005; 94640; 94664; 96361; 96374; 99291; J2405; J7620; J8499

== ENCOUNTER 2018-10-30 21:04 | Emergency (ER) | payer OTHER ==
[~2018-10-30] VITALS: Ht 157.5 cm; Wt 81.6 kg
[~2018-10-30 21:04] MED LIST changes: +MEDROL DOSEPAK4 MG ORAL
--- NOTE | 2018-10-30 21:10 | Emergency Room Report ---
History of Present Illness General Chief Complaint: Dyspnea/Respdistress Source: Patient Present Illness HPI Patient is a 37-year-old female brought in by EMS after increased shortness of breath. Patient had prior history of asthma. She had recently been hospitalized and discharged approximately 4 weeks ago. She reports having some continued congestion since then. She denies any fever. She reports having increased chest discomfort as well as shortness of breath. She had prior history of asthma. She is currently on oral steroids. She finished a course of antibiotics. Allergies: Coded Allergies: No Known Allergies (Unverified , 09/25/15) Patient History Past Medical History: see triage record Now: No Reviewed Nursing Documentation: PMH: Agreed; PSxH: Agreed Nursing Documentation-PMH Past Medical History: No History, Except For Hx Cardiac Problems: No Hx Hypertension: No Hx Pacemaker: No Hx Asthma: Yes Hx COPD: Yes - EMPHYSEMA Hx Diabetes: No Hx Cancer: No Hx Gastrointestinal Problems: No Hx Dialysis: No Hx Neurological Problems: No Hx Cerebrovascular Accident: No Hx Seizures: No Review of Systems All Other Systems: negative except mentioned in HPI Physical Exam Vital Signs Date Time Temp Pulse Resp B/P (MAP) Pulse Ox O2 Delivery O2 Flow Rate FiO2 10/30/18 21:00 99.0 130 28 150/91 (110) 92 Room Air Sp02 EP Interpretation: reviewed, normal General Appearance: normal inspection, well appearing, no apparent distress, alert, GCS 15, non-toxic Head: atraumatic ENT: normal ENT inspection, hearing grossly normal, normal voice Neck: normal inspection, full range of motion, supple, no bony tend Respiratory: normal inspection, lungs clear, normal breath sounds, no respiratory distress, no retraction, no wheezing Cardiovascular #1: regular rate, rhythm, no edema Gastrointestinal: normal inspection, normal bowel sounds, non tender, soft, no guarding, no hernia Genitourinary: no CVA tenderness Musculoskeletal: normal inspection, back normal, normal range of motion Neurologic: normal inspection, alert, responsive, speech normal Psychiatric: normal inspection, judgement/insight normal, mood/affect normal Medical Decision Making Diagnostic Impression: Primary Impression: COPD (chronic obstructive pulmonary disease) ER Course Patient presented for increased shortness of breath. Differential diagnosis include is not limited to pneumonia, pneumothorax, pulmonary embolism among others. Because of complexity of patient's case laboratory tests and imaging studies were ordered. Patient was noted to have what appears to be a COPD exacerbation. Patient was given breathing treatments as well as IV steroids. She was noted to have some slight improvement however continued to have moderate difficulty with respirations. Patient started on supplemental oxygen. Patient subsequently stated she felt better and wanted to leave the hospital. I do not feel the patient was ready to leave the hospital and advised the patient of this. She appears to be able to make decisions for herself. The patient was advised risk benefits alternatives of leaving AGAINST MEDICAL ADVICE and he indicated understanding and all questions are answered patient still continued want to leave and signed AGAINST MEDICAL ADVICE. Despite risks including but not limited to disability and worsening of current lifestyle. She was advised to return if she changed her mind. Labs Test 10/30/18 21:15 White Blood Count 5.5 K/UL (4.8-10.8) Red Blood Count 4.40 M/UL (4.20-5.40) Hemoglobin 13.5 G/DL (12.0-16.0) Hematocrit 37.5 % (37.0-47.0) Mean Corpuscular Volume 85 FL (80-99) Mean Corpuscular Hemoglobin 30.7 PG (27.0-31.0) Mean Corpuscular Hemoglobin Concent 36.1 G/DL (32.0-36.0) Red Cell Distribution Width 10.2 % (11.6-14.8) Platelet Count 232 K/UL (150-450) Mean Platelet Volume 6.0 FL (6.5-10.1) Neutrophils (%) (Auto) 45.0 % (45.0-75.0) Lymphocytes (%) (Auto) 34.7 % (20.0-45.0) Monocytes (%) (Auto) 9.1 % (1.0-10.0) Eosinophils (%) (Auto) 10.1 % (0.0-3.0) Basophils (%) (Auto) 1.1 % (0.0-2.0) Urine Color Yellow Urine Appearance Clear Urine pH 6 (4.5-8.0) Urine Specific [place] 1.025 (1.005-1.035) Urine Protein Negative (NEGATIVE) Urine Glucose (UA) Negative (NEGATIVE) Urine Ketones Negative (NEGATIVE) Urine Blood Negative (NEGATIVE) Urine Nitrite Negative (NEGATIVE) Urine Bilirubin Negative (NEGATIVE) Urine Urobilinogen 1 MG/DL (0.0-1.0) Urine Leukocyte Esterase Negative (NEGATIVE) Urine RBC 0-2 /HPF (0 - 2) Urine WBC 0-2 /HPF (0 - 2) Urine Squamous Epithelial Cells Moderate /LPF (NONE/OCC) Urine Bacteria Few /HPF (NONE) Urine HCG, Qualitative Negative (NEGATIVE) Sodium Level 144 MMOL/L (136-145) Potassium Level 3.3 MMOL/L (3.5-5.1) Chloride Level 109 MMOL/L (98-107) Carbon Dioxide Level 25 MMOL/L (21-32) Anion Gap 10 mmol/L (5-15) Blood Urea Nitrogen 12 mg/dL (7-18) Creatinine 0.9 MG/DL (0.55-1.30) Estimat Glomerular Filtration Rate > 60 mL/min (>60) Glucose Level 100 MG/DL (74-106) Calcium Level 8.9 MG/DL (8.5-10.1) Total Bilirubin 0.3 MG/DL (0.2-1.0) Aspartate Amino Transf (AST/SGOT) 13 U/L (15-37) Alanine Aminotransferase (ALT/SGPT) 15 U/L (12-78) Alkaline Phosphatase 88 U/L (46-116) Troponin I 0.000 ng/mL (0.000-0.056) Total Protein 6.8 G/DL (6.4-8.2) Albumin 3.5 G/DL (3.4-5.0) Globulin 3.3 g/dL Albumin/Globulin Ratio 1.1 (1.0-2.7) Last Vital Signs Date Time Temp Pulse Resp B/P (MAP) Pulse Ox O2 Delivery O2 Flow Rate FiO2 10/30/18 21:00 99.0 130 28 150/91 (110) 92 Room Air Status: improved Disposition: AGAINST MEDICAL ADVICE Condition: Serious Rj Gayle MD Oct 30, 2018 21:10
[2018-10-30 21:15] VITALS: BP 150/91
[2018-10-30] MEDS ORDERED: DiphenhydrAMINE 50mg/ml Inj IVP ONE (21:15)
--- NOTE | 2018-10-30 21:15 | NUR ---
ER Nurse Note: Pt BIBA 67 from home c/o shortness of breath with increasing chest pain. Pt stated she was discharged from the hospital recently and the medication is not effective at home. Tonight, s/s became worse; O2 90% RA by EMS, breathing treatment with asa and nitro given per EMS. Pt on 2L NC at 96%. HX of emphysema and COPD. Wheezes heard in all lobes. Will continue to montior.
[2018-10-30 21:37] LABS: APPEARANCE,URINE CLEAR; BILIRUBIN, URINE NEGATIVE (NEGATIVE); COLOR,URINE YELLOW; GLUCOSE, URINE (UA) NEGATIVE (NEGATIVE); KETONES,URINE NEGATIVE (NEGATIVE); LEUKOCYTE ESTERASE ,URINE NEGATIVE (NEGATIVE); NITRITE,URINE NEGATIVE (NEGATIVE); PH,URINE 6 (4.5-8.0); PROTEIN,URINE NEGATIVE (NEGATIVE); UROBILINOGEN,URINE 1 MG/DL (0.0-1.0)
[2018-10-30 21:40] LABS: ANION GAP 10 mmol/L (5-15); BLOOD UREA NITROGEN 12 mg/dL (7-18); CALCIUM 8.9 MG/DL (8.5-10.1); CARBON DIOXIDE 25 MMOL/L (21-32); CHLORIDE 109 MMOL/L (98-107); CREATININE 0.9 MG/DL (0.55-1.30); POTASSIUM 3.3 MMOL/L (3.5-5.1); SODIUM 144 MMOL/L (136-145)
[2018-10-30 21:43] LABS: BASOPHILS % (AUTO) 1.1 % (0.0-2.0); EOSINOPHILS % (AUTO) 10.1 % (0.0-3.0); HEMATOCRIT 37.5 % (37.0-47.0); HEMOGLOBIN 13.5 G/DL (12.0-16.0); LYMPHOCYTES % (AUTO) 34.7 % (20.0-45.0); MEAN CORPUSCULAR VOLUME 85 FL (80-99); MONOCYTES % (AUTO) 9.1 % (1.0-10.0); PLATELET COUNT 232 K/UL (150-450); RED CELL DISTRIBUTION WIDTH 10.2 % (11.6-14.8); WHITE BLOOD COUNT 5.5 K/UL (4.8-10.8)
[2018-10-30 21:49] LABS: ALANINE AMINOTRANSFERASE 15 U/L (12-78); ALBUMIN 3.5 G/DL (3.4-5.0); ALBUMIN/GLOBULIN RATIO 1.1 (1.0-2.7); ALKALINE PHOSPHATASE 88 U/L (46-116); ASPARTATE AMINO TRANSFERASE 13 U/L (15-37); BILIRUBIN,TOTAL 0.3 MG/DL (0.2-1.0)
[2018-10-30 23:33] VITALS: BP 132/86
--- NOTE | 2018-10-30 23:34 | NUR ---
ER Nurse Note: Pt asleep but easily arousable. VSS, no signs of distress. Wheezes heard; no distress. All orders completed. All safety measrues met; will continue to montior,
[2018-10-31] MEDS ORDERED: Albuterol/Ipratropium 3ml neb HHN ONE (01:00)
[2018-10-31 02:00] VITALS: BP 106/78
[2018-10-31 02:16] VITALS: BP 106/78
--- NOTE | 2018-10-31 02:16 | NUR ---
ER Nurse Note: Pt a&ox4, VSS, 1L NC at 98% O2, shortness of breath noted. Pt denies pain. Pt stated she needs to made an appointment in the AM and cannot stay in the hospital. Explained the risk for leaving against medical advice; pt understood the risk and stated i"f she feels short of breath after her appointment, she will come back and get admitted". ERMD aware and discussed with pt. Pt signed the AMA form. SLIV DC; site clean and bandaged. Pt stable, no difficulty ambulating. Pt left with all belongings.
--- NOTE | 2018-10-31 11:11 | Diagnostic Imaging Report ---
Indication: Dyspnea Comparison: 09/21/2018 A single view chest radiograph was obtained. Findings: Cardiomediastinal appearance is within normal limits for age. There is bronchial wall thickening suspected with some perihilar densities bronchovascular densities present. Findings appear unchanged from the last study. There is no consolidation or evidence of pneumonia. Pulmonary vascularity is appropriate. The diaphragmatic contour is smooth and costophrenic angles are sharp. No pleural effusions are identified. The bones are unremarkable. Impression: No acute findings. Suspected bronchitis which may be chronic.
--- NOTE | 2018-11-02 15:23 | Cardiology Report ---
APPROVED REPORT EKG Measurement Heart [id number] Sinus tachycardia Otherwise normal ECG
== END 2018-10-31 02:16 | disposition left against medical advice (07) ==
LOC: EDBD 21:04 → EMR 23:02
DX: J44.9 Chronic obstructive pulmonary disease, unspecified (principal)
CPT/HCPCS: 36415; 71045; 80053; 81001; 81025; 84484; 85025; 93005; 94640; 94664; 96374; 99284; J1200; J7512; J7620

== ENCOUNTER 2018-11-07 17:42 | Emergency (ER) | payer OTHER ==
[~2018-11-07] VITALS: Ht 167.6 cm; Wt 68.0 kg
--- NOTE | 2018-11-07 17:50 | NUR ---
ED Nurse Note: pt presents to ED c/o SOB. pt states she was at the store when she felt chest tightness and could not breathe. pt reports feeling this way for a couple months. per pt, SOB worsens with walking and exertion. pt used her rescue inhaler today without relief of symptoms.
--- NOTE | 2018-11-07 17:52 | Emergency Room Report ---
History of Present Illness General Chief Complaint: Dyspnea/Respdistress Source: Patient Present Illness HPI Disclaimer: Please note that this report is being documented using [employer] technology. This can lead to erroneous entry secondary to incorrect interpretation by the dictating instrument. HPI: 38-year-old female with a history of COPD and emphysema presents for evaluation of shortness of breath. Symptoms have been ongoing and worsening for the past 5 days. She notes a worsening and persistent cough with purulent sputum. She has felt warm but no objective fever measurements were taken. She has been in the emergency department and admitted to the hospital several times for COPD exacerbation. She has been using her home medications including her nebulizer all day without significant improvement in her breathing. She feels tight and constricted, notes wheezing and palpitations. Denies vomiting, rash, chest pressure, lightheadedness or syncope PMH: COPD, emphysema PSH: Abdominal surgery unspecified Allergies: Denies Social Hx: Former smoker, quit 1 year ago Allergies: Coded Allergies: No Known Allergies (Unverified , 09/25/15) Patient History Last Menstrual Period: unk Nursing Documentation-PMH Past Medical History: No History, Except For Hx Cardiac Problems: No Hx Hypertension: No Hx Pacemaker: No Hx Asthma: Yes Hx COPD: Yes - EMPHYSEMA, COPD Hx Diabetes: No Hx Cancer: No Hx Gastrointestinal Problems: No Hx Dialysis: No Hx Neurological Problems: No Hx Cerebrovascular Accident: No Hx Seizures: No Review of Systems All Other Systems: negative except mentioned in HPI Physical Exam Vital Signs Date Time Temp Pulse Resp B/P (MAP) Pulse Ox O2 Delivery O2 Flow Rate FiO2 11/07/18 17:44 98.2 123 21 139/82 (101) General: Awake and alert, sitting upright, tachypneic, moderate respiratory distress HEENT: NC/AT. EOMI. Cardiovascular: Tachycardic. S1 and S2 normal. No murmur appreciated Resp: Increased work of breathing. Tachypnea, restricted air movement bilaterally. Wheezes in all lung blount. No cough during exam, no crackles appreciated Abdomen: Abdomen is soft, nondistended. Nontender Skin: Intact. No abrasions, laceration or rash over the exposed skin MSK: Normal tone and bulk. Moving all extremities. No obvious deformity. Neuro: Awake and alert. Mentating appropriately. Medical Decision Making Diagnostic Impression: Primary Impression: COPD (chronic obstructive pulmonary disease) ER Course 37-year-old female presents for evaluation of shortness of breath worsening over the past 5 days. Differential includes but is not limited to COPD exacerbation, pneumonia, bronchitis, URI, ACS. Will obtain EKG, labs including blood gas, chest x-ray and treat with breathing treatments and IV steroids. Patient is tachypneic and if there is no significant improvement in her work of breathing after breathing treatments may start BiPAP. Laboratory Tests Test 11/07/18 17:54 11/07/18 18:01 White Blood Count 7.3 K/UL (4.8-10.8) Red Blood Count 4.81 M/UL (4.20-5.40) Hemoglobin 15.0 G/DL (12.0-16.0) Hematocrit 43.2 % (37.0-47.0) Mean Corpuscular Volume 90 FL (80-99) Mean Corpuscular Hemoglobin 31.2 PG (27.0-31.0) H Mean Corpuscular Hemoglobin Concent 34.7 G/DL (32.0-36.0) Red Cell Distribution Width 10.9 % (11.6-14.8) L Platelet Count 309 K/UL (150-450) Mean Platelet Volume 6.7 FL (6.5-10.1) Neutrophils (%) (Auto) 42.6 % (45.0-75.0) L Lymphocytes (%) (Auto) 33.4 % (20.0-45.0) Monocytes (%) (Auto) 9.0 % (1.0-10.0) Eosinophils (%) (Auto) 13.9 % (0.0-3.0) H Basophils (%) (Auto) 1.1 % (0.0-2.0) Sodium Level 144 MMOL/L (136-145) Potassium Level 3.8 MMOL/L (3.5-5.1) Chloride Level 109 MMOL/L (98-107) H Carbon Dioxide Level 24 MMOL/L (21-32) Anion Gap 11 mmol/L (5-15) Blood Urea Nitrogen 12 mg/dL (7-18) Creatinine 1.0 MG/DL (0.55-1.30) Estimate Glomerular Filtration Rate > 60 mL/min (>60) Glucose Level 103 MG/DL (74-106) Calcium Level 9.5 MG/DL (8.5-10.1) Total Bilirubin 0.3 MG/DL (0.2-1.0) Aspartate Amino Transferase (AST) 13 U/L (15-37) L Alanine Aminotransferase (ALT) 17 U/L (12-78) Alkaline Phosphatase 100 U/L (46-116) Troponin I 0.000 ng/mL (0.000-0.056) Total Protein 7.4 G/DL (6.4-8.2) Albumin 4.0 G/DL (3.4-5.0) Globulin 3.4 g/dL Albumin/Globulin Ratio 1.2 (1.0-2.7) Arterial Blood pH 7.392 (7.350-7.450) Arterial Blood Partial Pressure CO2 36.2 mmHg (35.0-45.0) Arterial Blood Partial Pressure O2 128.2 mmHg (75.0-100.0) H Arterial Blood HCO3 21.5 mmol/L (22.0-26.0) L Arterial Blood Oxygen Saturation 98.0 % (95-100) Arterial Blood Base Excess -2.8 (-2-2) L Lonnie Test Positive EKG Diagnostic Results EKG Time: 18:05 Rate: tachycardiac Rhythm: NSR ST Segments: no acute changes Other Impression Sinus tachycardia, rate 121 bpm, normal intervals, normal axis, no acute ST segment changes Rhythm Strip Diag. Results Rhythm Strip Time: 18:05 EP Interpretation: yes Rate: 120s Rhythm: no PVC's, no ectopy, other - Tachycardia Chest X-Ray Diagnostic Results Chest X-Ray Diagnostic Results : # of Views/Limited/Complete: 1 View EP Interpretation: Yes PA Xray: Interpretation reviewed Interpretation: no consolidation, no effusion, no pneumothorax Impression: No acute disease Electronically Signed by: Electronically signed by Dr. Randall Torres Reevaluation Time: 19:02 Last Vital Signs Date Time Temp Pulse Resp B/P (MAP) Pulse Ox O2 Delivery O2 Flow Rate FiO2 11/07/18 17:44 98.2 123 21 139/82 (101) Status: improved Reevaluation Impression Patient notes improvement after receiving breathing treatments and steroids. She remains tachypneic and tachycardic though is moving more air bilaterally. Wheezes remain. Will give more breathing treatments and start magnesium as well. She is also given a small dose of Ativan as she was feeling very anxious. She will require admission. Labs have returned largely unremarkable with normal blood gas however she has increased work of breathing, tachycardic into the 130s and tachypneic into the mid 20s. No hypoxia. Pressures are stable. No evidence of infiltrate on chest x-ray. Troponin is negative. She will require admission for COPD exacerbation 193: Discussed with the patient's returned case inspector. She is appropriate and stable for transfer to other facility to which her insurance is contracted. . 2099: EMS has arrived to transfer the patient. She has bilateral wheezes but her work of breathing is improved. Continues to cough. Feeling better on nasal oxygen. Stable for transfer. Disposition: [facility]OS[facility] Condition: Serious Randall Torres MD Nov 07, 2018 17:52
[2018-11-07] MEDS: Albuterol ud Inhalation HHN SCH ×3 (17:57→18:42)
[2018-11-07] MEDS ORDERED: Solu-MEDROL 125mg Inj IVP ONE (18:00)
[2018-11-07] MEDS ORDERED: Ipratropium 0.02% Inh Soln 2.5ml UD HHN ONE (18:00)
--- NOTE | 2018-11-07 18:00 | NUR ---
ED Nurse Note: pt has been taking phone calls, she is unable to speak full sentences
[2018-11-07] MEDS ORDERED: LORazepam Inj 2mg/ml 1ml IV ONE (18:15)
[2018-11-07 18:24] LABS: BASOPHILS % (AUTO) 1.1 % (0.0-2.0); EOSINOPHILS % (AUTO) 13.9 % (0.0-3.0); HEMATOCRIT 43.2 % (37.0-47.0); LYMPHOCYTES % (AUTO) 33.4 % (20.0-45.0); MEAN CORPUSCULAR VOLUME 90 FL (80-99); NEUTROPHILS % (AUTO) 42.6 % (45.0-75.0); PLATELET COUNT 309 K/UL (150-450); RED BLOOD COUNT 4.81 M/UL (4.20-5.40); RED CELL DISTRIBUTION WIDTH 10.9 % (11.6-14.8); WHITE BLOOD COUNT 7.3 K/UL (4.8-10.8)
[2018-11-07 18:26] VITALS: BP 139/82
[2018-11-07 18:40] LABS: ANION GAP 11 mmol/L (5-15); BLOOD UREA NITROGEN 12 mg/dL (7-18); CALCIUM 9.5 MG/DL (8.5-10.1); CARBON DIOXIDE 24 MMOL/L (21-32); CHLORIDE 109 MMOL/L (98-107); POTASSIUM 3.8 MMOL/L (3.5-5.1); SODIUM 144 MMOL/L (136-145)
[2018-11-07 18:45] LABS: ALANINE AMINOTRANSFERASE 17 U/L (12-78); ALBUMIN/GLOBULIN RATIO 1.2 (1.0-2.7); ALKALINE PHOSPHATASE 100 U/L (46-116); ASPARTATE AMINO TRANSFERASE 13 U/L (15-37); BILIRUBIN,TOTAL 0.3 MG/DL (0.2-1.0)
[2018-11-07] MEDS ORDERED: Albuterol ud Inhalation HHN SCH (18:45)
--- NOTE | 2018-11-07 18:46 | Diagnostic Imaging Report ---
EXAM: XR Chest, 1 View CLINICAL HISTORY: SOB TECHNIQUE: Frontal view of the chest. COMPARISON: 10 31 2018. FINDINGS: Lungs: Left lower lung mild atelectasis infiltrates. Pleural space: Unremarkable. No pneumothorax. Heart: Unremarkable. No cardiomegaly. Mediastinum: Unremarkable. Bones joints: Unremarkable. IMPRESSION: Left lower lung mild atelectasis infiltrates.
--- NOTE | 2018-11-07 19:13 | NUR ---
HAND-OFF: Report given to Yaneth. pt remains in stable condition
--- NOTE | 2018-11-07 19:15 | NUR ---
ED Nurse Note: RECEIVED REPORT AND ASSUMED CARE, PT VSS, CURRENTLY RECEIVING BREATHING TX, NOTED WHEEZING AND TACHYPNEA, WILL CONT MONITOR. 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
[2018-11-07 21:07] VITALS: BP 127/86
--- NOTE | 2018-11-07 21:07 | NUR ---
ED Nurse Note: REPORT GIVEN TO JOAQUÍN NEGRON FROM [facility], PT CARE ENDORSED TO EMS STAFF, ALL BELONGNGS SENT W/ PT, IV INTACT AND PATENT, SINUS TACH ON AIRSET CASTER, VSS.
--- NOTE | 2018-11-08 13:21 | Cardiology Report ---
APPROVED REPORT EKG Measurement Heart [id number] Sinus tachycardia Right atrial enlargement Borderline ECG
== END 2018-11-07 21:07 | disposition short-term general hospital (02) ==
LOC: EMR 18:20
DX: J44.9 Chronic obstructive pulmonary disease, unspecified (principal); F41.9 Anxiety disorder, unspecified; R00.0 Tachycardia, unspecified; R06.82 Tachypnea, not elsewhere classified
CPT/HCPCS: 36415; 36600; 71045; 80053; 82803; 84484; 85025; 93005; 94640; 96365; 96375; J2930; Z7502; 99285

== ENCOUNTER 2018-11-30 20:35 | Inpatient (IN) | payer OTHER ==
[~2018-11-30] VITALS: Ht 170.2 cm; Wt 83.5 kg
--- NOTE | 2018-11-30 20:38 | NUR ---
ED Nurse Note: pt brought in by ambulance from home for C/O SOB/ asthma. pt stated this started earlier today during noon time. pt sp02 is 97% on room air.
[2018-11-30 20:45] VITALS: BP 130/66
[2018-11-30] MEDS ORDERED: Ipratropium 0.02% Inh Soln 2.5ml UD HHN ONE (20:45)
[2018-11-30] MEDS ORDERED: EPINEPHrine 1mg/1ml Amp IM ONE (20:45)
[2018-11-30] MEDS ORDERED: Solu-MEDROL 125mg Inj IVP ONE (20:45)
--- NOTE | 2018-11-30 20:50 | NUR ---
ED Nurse Note: blood sample sent down to lab
[2018-11-30] MEDS: Albuterol ud Inhalation HHN SCH ×3 (20:56→21:29)
[2018-11-30 21:04] LABS: BASOPHILS % (AUTO) 1.5 % (0.0-2.0); EOSINOPHILS % (AUTO) 14.6 % (0.0-3.0); HEMATOCRIT 42.3 % (37.0-47.0); HEMOGLOBIN 14.4 G/DL (12.0-16.0); LYMPHOCYTES % (AUTO) 34.4 % (20.0-45.0); MEAN CORPUSCULAR VOLUME 90 FL (80-99); MONOCYTES % (AUTO) 6.7 % (1.0-10.0); NEUTROPHILS % (AUTO) 42.8 % (45.0-75.0); PLATELET COUNT 275 K/UL (150-450); RED CELL DISTRIBUTION WIDTH 10.1 % (11.6-14.8); WHITE BLOOD COUNT 6.8 K/UL (4.8-10.8)
[2018-11-30 21:10] LABS: ANION GAP 9 mmol/L (5-15); BLOOD UREA NITROGEN 14 mg/dL (7-18); CALCIUM 8.9 MG/DL (8.5-10.1); CARBON DIOXIDE 28 MMOL/L (21-32); CHLORIDE 107 MMOL/L (98-107); POTASSIUM 3.3 MMOL/L (3.5-5.1); SODIUM 144 MMOL/L (136-145)
[2018-11-30 21:20] LABS: ALANINE AMINOTRANSFERASE 19 U/L (12-78); ALBUMIN 3.9 G/DL (3.4-5.0); ALBUMIN/GLOBULIN RATIO 1.2 (1.0-2.7); ALKALINE PHOSPHATASE 93 U/L (46-116); ASPARTATE AMINO TRANSFERASE 12 U/L (15-37); BILIRUBIN,TOTAL 0.4 MG/DL (0.2-1.0); CREATINE KINASE 74 U/L (26-308)
--- NOTE | 2018-11-30 22:26 | NUR ---
ED Nurse Note: pt unable to provide urine at this time. pt stated she will klet staff know when she is ready. ERMD aware.
--- NOTE | 2018-11-30 22:39 | Emergency Room Report ---
History of Present Illness General Chief Complaint: Dyspnea/Respdistress Source: Patient, EMS Present Illness HPI Patient presents with worsening dyspnea throughout the day. She called paramedics at 8 after using her nebulizer 4 times without help. The patient received albuterol 5 mg in the field. She vomited several times coming in. Zofran was administered. She denies productive cough at this time or fevers. She is severely dyspneic at this time but states this is not her worst attack. She alleges she is been intubated twice before. She is used steroids in the past. She has mild chest pressure but no chest pain. She denies calf tenderness or edema. No fevers, chills, sore throat, chest pain, palpitations, diarrhea, dysuria, abdominal pain, joint pain, rashes, depression, anxiety, visual changes, headache. Patient is last menstrual period was normal for her and she does not believe she is at this time. Allergies: Coded Allergies: No Known Allergies (Unverified , 11/30/18) Patient History Past Medical History: see triage record Social History: Denies: smoking, alcohol use, drug use Social History Narrative From home Last Menstrual Period: na Reviewed Nursing Documentation: PMH: Agreed; PSxH: Agreed Nursing Documentation-PMH Hx Asthma: Yes - emphysema Review of Systems All Other Systems: negative except mentioned in HPI Physical Exam Vital Signs Date Time Temp Pulse Resp B/P (MAP) Pulse Ox O2 Delivery O2 Flow Rate FiO2 11/30/18 20:37 97.2 110 21 131/68 (89) 99 Room Air 11/30/18 20:45 97 Sp02 EP Interpretation: reviewed, normal General Appearance: alert, GCS 15, non-toxic, moderate distress - Tripod Head: normocephalic Eyes: bilateral eye normal inspection, bilateral eye PERRL, bilateral eye EOMI ENT: moist mucus membranes Neck: supple Respiratory: no retraction, respiratory distress, decreased breath sounds, accessory muscle use, wheezing, expiration, inspiration Cardiovascular #1: no edema, tachycardia Cardiovascular #2: 2+ radial (R) Gastrointestinal: normal inspection, non tender, no mass, non-distended, decreased bowel sounds Genitourinary: no CVA tenderness Musculoskeletal: back normal, normal range of motion, no calf tenderness Neurologic: alert, oriented x3, grossly normal Psychiatric: anxious Skin: no rash Procedures Critical Care Time Critical Care Time Total Critical Care Time: 60 patient presents with respiratory distress after aggressive treatment min bedside evaluation and treatment excludes procedures ( EKG). Reason for critical care: Status asthmaticus Possible complications: hypotension, hypertension, AK, shock, arrhythmias, metabolic acidosis, end organ damage, respiratory failure. Interventions: Intramuscular epinephrine, repeated evaluations, breathing treatments, magnesium IV, Solu-Medrol Course: Patient presents after aggressive treatment in the field with respiratory distress and vomiting. Immediate intramuscular epinephrine given. Aggressive breathing treatments also begun. Solu-Medrol administered. Some improvement. Intravenous magnesium infusing. Repeat evaluation with expiratory wheezes but improved. Discussed with admitting physician. Admitted to stepdown unit. Consultations: nursing staff, EMS, respiratory therapy Performed by: Dr. Palacio Tolerated well condition = serious Medical Decision Making Diagnostic Impression: Primary Impression: Status asthmaticus Qualified Codes: J45.52 - Severe persistent asthma with status asthmaticus Additional Impression: Eosinophilia ER Course Patient presents with moderate to severe respiratory distress with a history of asthma and prior intubation. Differential includes status asthmaticus, pneumonia, pulmonary embolus, acute myocardial infarction amongst others. Based on her physical exam pulmonary embolus is less likely. Immediate treatment with IM epinephrine is initiated. Patient evaluated with EKG, chest x -ray and labs. Aggressive breathing treatments with albuterol and Atrovent initiated. IV Solu-Medrol begun. IV magnesium begun. Repeated evaluations are indicated. As the patient states that she has been intubated in the past this patient is at high risk for respiratory failure. Some improvement with epinephrine but still respiratory distress. Breathing treatments being given. EKG with sinus tachycardia left atrial enlargement and P pulmonale. Chest x- ray no infiltrates. Labs with normal white count but eosinophilia. CMP unremarkable. Troponin negative. Urinalysis unremarkable. Initial lactic acid elevated minimally. After first barrage of breathing treatments able to rest but still with mild respiratory distress. 22:37 improved but still hypoxic and min wheezes. Able to walk to bathroom. Repeat tx. Repeat lactic acid normal Admit SDU. Laboratory Tests Test 11/30/18 20:43 11/30/18 21:50 11/30/18 22:39 11/30/18 23:40 White Blood Count 6.8 K/UL (4.8-10.8) Red Blood Count 4.70 M/UL (4.20-5.40) Hemoglobin 14.4 G/DL (12.0-16.0) Hematocrit 42.3 % (37.0-47.0) Mean Corpuscular Volume 90 FL (80-99) Mean Corpuscular Hemoglobin 30.7 PG (27.0-31.0) Mean Corpuscular Hemoglobin Concent 34.1 G/DL (32.0-36.0) Red Cell Distribution Width 10.1 % (11.6-14.8) L Platelet Count 275 K/UL (150-450) Mean Platelet Volume 6.7 FL (6.5-10.1) Neutrophils (%) (Auto) 42.8 % (45.0-75.0) L Lymphocytes (%) (Auto) 34.4 % (20.0-45.0) Monocytes (%) (Auto) 6.7 % (1.0-10.0) Eosinophils (%) (Auto) 14.6 % (0.0-3.0) H Basophils (%) (Auto) 1.5 % (0.0-2.0) Prothrombin Time 10.3 SEC (9.30-11.50) Prothrombin Time INR 1.0 (0.9-1.1) PTT 26 SEC (23-33) Sodium Level 144 MMOL/L (136-145) Potassium Level 3.3 MMOL/L (3.5-5.1) L Chloride Level 107 MMOL/L (98-107) Carbon Dioxide Level 28 MMOL/L (21-32) Anion Gap 9 mmol/L (5-15) Blood Urea Nitrogen 14 mg/dL (7-18) Creatinine 1.0 MG/DL (0.55-1.30) Estimate Glomerular Filtration Rate > 60 mL/min (>60) Glucose Level 130 MG/DL (74-106) H Calcium Level 8.9 MG/DL (8.5-10.1) Magnesium Level 2.0 MG/DL (1.8-2.4) Total Bilirubin 0.4 MG/DL (0.2-1.0) Aspartate Amino Transferase (AST) 12 U/L (15-37) L Alanine Aminotransferase (ALT) 19 U/L (12-78) Alkaline Phosphatase 93 U/L (46-116) Total Creatine Kinase 74 U/L (26-308) Troponin I 0.000 ng/mL (0.000-0.056) Pro-B-Type Natriuretic Peptide 94 pg/mL (0-125) Total Protein 7.2 G/DL (6.4-8.2) Albumin 3.9 G/DL (3.4-5.0) Globulin 3.3 g/dL Albumin/Globulin Ratio 1.2 (1.0-2.7) Lactic Acid Level 2.10 mmol/L (0.4-2.0) H 2.00 mmol/L (0.66-2.22) Urine Color Yellow Urine Appearance Cloudy Urine pH 5 (4.5-8.0) Urine Specific [place] 1.025 (1.005-1.035) Urine Protein 2+ (NEGATIVE) H Urine Glucose (UA) Negative (NEGATIVE) Urine Ketones 2+ (NEGATIVE) H Urine Blood Negative (NEGATIVE) Urine Nitrite Negative (NEGATIVE) Urine Bilirubin Negative (NEGATIVE) Urine Urobilinogen 4 MG/DL (0.0-1.0) H Urine Leukocyte Esterase Negative (NEGATIVE) Urine RBC 2-4 /HPF (0 - 2) H Urine WBC 0-2 /HPF (0 - 2) Urine Squamous Epithelial Cells Many /LPF (NONE/OCC) H Urine Bacteria Few /HPF (NONE) Urine Mucus Moderate /LPF (NONE/OCC) H EKG Diagnostic Results Rate: tachycardiac Rhythm: NSR ST Segments: no acute changes Rhythm Strip Diag. Results EP Interpretation: yes Rhythm: no PVC's, no ectopy, other - Sinus tachycardia Chest X-Ray Diagnostic Results Chest X-Ray Diagnostic Results : Chest X-Ray Ordered: Yes # of Views/Limited/Complete: 1 View Indication: Shortness of Breath EP Interpretation: Yes Interpretation: no consolidation, no effusion, no pneumothorax, other - hyperaeration Impression: Other Electronically Signed by: Electronically signed by Job Palacio MD Last Vital Signs Date Time Temp Pulse Resp B/P (MAP) Pulse Ox O2 Delivery O2 Flow Rate FiO2 12/01/18 02:03 Nasal Cannula 2.0 Nasal Cannula 2.0 12/01/18 00:40 98.2 86 19 136/84 97 11/30/18 23:00 21 Status: improved Disposition: ADMITTED INPATIENT Condition: Serious Referrals: NON PHYSICIAN (PCP) Job Palacio MD Nov 30, 2018 22:39
[2018-11-30] MEDS ORDERED: Albuterol ud Inhalation HHN ONE (22:45)
[2018-11-30 23:12] LABS: APPEARANCE,URINE CLOUDY; BILIRUBIN, URINE NEGATIVE (NEGATIVE); COLOR,URINE YELLOW; GLUCOSE, URINE (UA) NEGATIVE (NEGATIVE); KETONES,URINE 2+ (NEGATIVE); LEUKOCYTE ESTERASE ,URINE NEGATIVE (NEGATIVE); NITRITE,URINE NEGATIVE (NEGATIVE); PH,URINE 5 (4.5-8.0); PROTEIN,URINE 2+ (NEGATIVE); UROBILINOGEN,URINE 4 MG/DL (0.0-1.0)
[2018-12-01] VITALS (7 sets, daily range): BP systolic 100–133; BP diastolic 54–74
[2018-12-01] MEDS ORDERED: VENTOLIN HFA18 GM PO (00:31)
[2018-12-01] MEDS ORDERED: VENTOLIN HFA18 GM INH (00:31)
[2018-12-01] MEDS ORDERED: BREO ELLIPTA 11 EACH IH (00:31)
[2018-12-01] MEDS ORDERED: SINGULAIR5 M1 ORAL (00:31)
--- NOTE | 2018-12-01 00:40 | NUR ---
ED Nurse Note: pt brought up to SDU rm 245 via gurney with monitor box accompanied by atmospheric technician and RN in stable condition. pt is alert x4. IV site to right AC is intact. Belonging list signed. report given to JOAQUÍN Melgar
--- NOTE | 2018-12-01 00:55 | NUR ---
NURSE NOTES: Patient is transferred from ED and received report from JOAQUÍN Quintanilla. Patient was able to transfer from [facility] to bed. Inventory check done. Checked vital signs. Skin intact and clean. Patient is complaining of mild headache /. Put N/C 2L/min per patient request. 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 Placed call-light within easy reach. Will follow up with for admission orders.
--- NOTE | 2018-12-01 01:10 | NUR ---
NURSE NOTES: Called Dr. Bryan office and talked with P[place]ito, left message for admission orders.
[2018-12-01] MEDS ORDERED: QVAR7.3 GM INH (01:17)
[2018-12-01] MEDS ORDERED: HYDROXYZINE HCL50 M1 PO (01:17)
[2018-12-01] MEDS ORDERED: OXYBUTYNIN CHLOR5 M1 ORAL (01:17)
[2018-12-01] MEDS ORDERED: Ipratropium 0.02% Inh Soln 2.5ml UD HHN PRN ×2 (01:30→19:00)
--- NOTE | 2018-12-01 01:50 | NUR ---
NURSE NOTES: Received admission orders from Dr. Vivar. Will continue plan of care.
[2018-12-01] MEDS: Ipratropium 0.02% Inh Soln 2.5ml UD HHN SCH ×6 (02:56→22:57)
[2018-12-01 05:10] LABS: HEMATOCRIT 36.8 % (37.0-47.0); HEMOGLOBIN 12.5 G/DL (12.0-16.0); MEAN CORPUSCULAR VOLUME 90 FL (80-99); PLATELET COUNT 259 K/UL (150-450); RED BLOOD COUNT 4.11 M/UL (4.20-5.40); RED CELL DISTRIBUTION WIDTH 10.5 % (11.6-14.8); WHITE BLOOD COUNT 5.4 K/UL (4.8-10.8)
[2018-12-01 05:50] LABS: ALANINE AMINOTRANSFERASE 15 U/L (12-78); ALBUMIN 3.3 G/DL (3.4-5.0); ALBUMIN/GLOBULIN RATIO 1.1 (1.0-2.7); ALKALINE PHOSPHATASE 76 U/L (46-116); ANION GAP 9 mmol/L (5-15); ASPARTATE AMINO TRANSFERASE 15 U/L (15-37); BILIRUBIN,TOTAL 0.3 MG/DL (0.2-1.0); BLOOD UREA NITROGEN 11 mg/dL (7-18); CALCIUM 8.7 MG/DL (8.5-10.1); CARBON DIOXIDE 22 MMOL/L (21-32); CHLORIDE 110 MMOL/L (98-107); CREATININE 0.9 MG/DL (0.55-1.30); POTASSIUM 3.5 MMOL/L (3.5-5.1); SODIUM 141 MMOL/L (136-145)
--- NOTE | 2018-12-01 07:10 | NUR ---
NURSE NOTES: Received pt from JOAQUÍN Villanueva. patient is A/Ox4; able to make needs known. 2LNC, SPo2 96%. Patient has COPD. No signs of SOB or distress. Bilateral breaths rounds RAC 20G patent and asymptomatic. FC draining well to gravity.Bed locked, alarmed and in lowest position. Will continue plan of care. Addendum: 12/01/18 at 1217 by RASHID GRISSOM RN bilateral breath sounds are clear but diminished.
--- NOTE | 2018-12-01 07:17 | NUR ---
HAND-OFF: Report given to Frances Newton RN. Endorsed plan of care.
--- NOTE | 2018-12-01 07:41 | NUR ---
NURSE NOTES: Patient called nurse c/o patient cannot breathe, Spo2 93% called RT for PRN breathing treatment. Increased oxygen to 4L via NC, Spo2 95%.
[2018-12-01] MEDS ORDERED: HydrOXYzine 50mg tab ORAL SCH (09:00)
[2018-12-01] MEDS ORDERED: QVAR 80mcg Inh - 8.7gm INH SCH (09:00)
[2018-12-01] MEDS ORDERED: Oxybutynin 5mg tab ORAL SCH (09:00)
[2018-12-01] MEDS ORDERED: Breo Ellipta 200/25mcg-14 dose INH SCH (09:00)
[2018-12-01] MEDS ORDERED: Heparin 5000 units/ml inj SUBQ SCH ×2 (09:00→21:00)
--- NOTE | 2018-12-01 10:44 | Diagnostic Imaging Report ---
Indication: Dyspnea Technique: One view of the chest Comparison: none Findings: Body habitus limits evaluation. There is central bronchial wall thickening. Questionable pulmonary parenchymal opacities versus overlying soft tissue shadows are seen in the right hemithorax. Pleural spaces are clear. The heart size is normal Impression: Evidence of central bronchial wall thickening, could indicate bronchitis or asthma changes Hazy right lung opacity; suspect on the basis of overlying soft tissue shadows but infiltrates are also possible
--- NOTE | 2018-12-01 11:02 | NUR ---
*-* NO INSURANCE INFORMATION IN THE BAR UNABLE TO SEND CLINICALS AND REVIEWS *-*
--- NOTE | 2018-12-01 12:05 | Consultation ---
History of Present Illness General Date patient seen: Dec 01, 2018 Time patient seen: 11:56 Chief Complaint: Dyspnea/Respdistress Referring physician: PMG Reason for Consultation: COPD exac Present Illness HPI 37 F extensive former smoker with a h/o childhood asthma now with COPD/ emphysema and likely overlap syndrome recently admitted @ OSH p/w inc SOB refractory to her home inhaler regimen. + cough + wheezing no FC no CP no rhin/ bao no NVDC no abd pain or urinary complaints She is unsure of prior PFT's or CT She states she was Dx'd with emphysema [address] Antoine Ann @ [facility]. Her home regimen includes PO Albuterol, QVAR, Breo and [place]. I asked her several times and she reitterates that she takes all three maintenance inhalers together. She has a home nebulizer which is broke. She quit smoking 3 years ago. + prior intubation Allergies: Coded Allergies: No Known Allergies (Unverified , 11/30/18) Medication History Scheduled Albuterol Sulfate (Ventolin Hfa), 2 PUFFS INH EVERY 6 HOURS, (Reported) Albuterol Sulfate (Ventolin Hfa), 1 TAB PO EVERY 12 HOURS, (Reported) Beclomethasone Dipropionate 40MCG Oral Inh (Qvar 40*), 2 PUFF INH DAILY, ( Reported) Hydroxyzine Hcl (Hydroxyzine Hcl), 50 MG PO DAILY, (Reported) Montelukast Sodium (Singulair), 10 MG ORAL DAILY, (Reported) Oxybutynin Chloride (Oxybutynin Chloride), 5 MG ORAL DAILY, (Reported) Miscellaneous Medications Fluticasone/Vilanterol (Breo Ellipta 100-25 Mcg INH), 1 EACH IH, (Reported) Patient History History Provided By: Patient Healthcare decision maker Resuscitation status Full Code Advanced Directive on File No Past Medical/Surgical History Past Medical/Surgical History: (1) On home oxygen therapy (2) Former smoker (3) COPD (chronic obstructive pulmonary disease) (4) Asthma (5) Eosinophilia (6) Status asthmaticus Social History Social History: (1) Former smoker Review of Systems All Other Systems: negative except mentioned in HPI Physical Exam General Appearance: WD/WN, no apparent distress, alert oriented x3 Lines, tubes and drains: peripheral HEENT: normocephalic, atraumatic, anicteric, mucous membranes moist Neck: non-tender, normal alignment, supple Respiratory/Chest: rhonchi - bilaterally, expiratory wheezing Cardiovascular/Chest: normal peripheral pulses, normal rate, regular rhythm Abdomen: normal bowel sounds, non tender, soft, no organomegaly, no mass Extremities: other - No CCE Last 24 Hour Vital Signs Date Time Temp Pulse Resp B/P (MAP) Pulse Ox O2 Delivery O2 Flow Rate FiO2 12/01/18 11:01 92 20 99 Room Air 21 80 20 99 12/01/18 08:00 98.1 98 20 133/70 (91) 98 12/01/18 08:00 Nasal Cannula 2.0 Nasal Cannula 2.0 12/01/18 08:00 2.0 12/01/18 07:40 112 20 97 Room Air 21 118 22 94 12/01/18 06:51 102 18 98 Room Air 21 110 20 95 12/01/18 04:00 92 12/01/18 04:00 Nasal Cannula 2.0 Nasal Cannula 2.0 12/01/18 04:00 97.5 89 20 100/54 (69) 96 12/01/18 04:00 2.0 12/01/18 02:55 101 18 98 Room Air 21 100 20 96 12/01/18 02:03 Nasal Cannula 2.0 Nasal Cannula 2.0 12/01/18 01:00 97.5 110 20 120/66 (84) 96 12/01/18 00:40 98.2 86 19 136/84 97 Room Air 11/30/18 23:00 98 17 98 Room Air 21 11/30/18 22:45 109 21 96 Room Air 21 11/30/18 21:46 104 18 99 Room Air 21 11/30/18 21:31 108 19 99 Room Air 21 11/30/18 21:30 107 20 100 Room Air 21 11/30/18 21:15 111 20 100 Room Air 21 11/30/18 21:12 110 20 100 Room Air 21 11/30/18 20:56 108 22 98 Room Air 21 11/30/18 20:56 108 22 98 Room Air 21 11/30/18 20:45 104 22 Room Air 97 11/30/18 20:45 97.2 104 22 130/66 97 Room Air 11/30/18 20:37 97.2 110 21 131/68 (89) 99 Room Air Intake and Output 11/30/18 12/01/18 19:00 07:00 Intake Total 3060 ml Balance 3060 ml Intake Oral 360 ml IV Total 2700 ml # Voids 1 Laboratory Tests Test 11/30/18 20:43 11/30/18 21:50 11/30/18 22:39 11/30/18 23:40 White Blood Count 6.8 K/UL (4.8-10.8) Red Blood Count 4.70 M/UL (4.20-5.40) Hemoglobin 14.4 G/DL (12.0-16.0) Hematocrit 42.3 % (37.0-47.0) Mean Corpuscular Volume 90 FL (80-99) Mean Corpuscular Hemoglobin 30.7 PG (27.0-31.0) Mean Corpuscular Hemoglobin Concent 34.1 G/DL (32.0-36.0) Red Cell Distribution Width 10.1 % (11.6-14.8) L Platelet Count 275 K/UL (150-450) Mean Platelet Volume 6.7 FL (6.5-10.1) Neutrophils (%) (Auto) 42.8 % (45.0-75.0) L Lymphocytes (%) (Auto) 34.4 % (20.0-45.0) Monocytes (%) (Auto) 6.7 % (1.0-10.0) Eosinophils (%) (Auto) 14.6 % (0.0-3.0) H Basophils (%) (Auto) 1.5 % (0.0-2.0) Prothrombin Time 10.3 SEC (9.30-11.50) Prothromb Time International Ratio 1.0 (0.9-1.1) Activated Partial Thromboplast Time 26 SEC (23-33) Sodium Level 144 MMOL/L (136-145) Potassium Level 3.3 MMOL/L (3.5-5.1) L Chloride Level 107 MMOL/L (98-107) Carbon Dioxide Level 28 MMOL/L (21-32) Anion Gap 9 mmol/L (5-15) Blood Urea Nitrogen 14 mg/dL (7-18) Creatinine 1.0 MG/DL (0.55-1.30) Estimat Glomerular Filtration Rate > 60 mL/min (>60) Glucose Level 130 MG/DL (74-106) H Calcium Level 8.9 MG/DL (8.5-10.1) Magnesium Level 2.0 MG/DL (1.8-2.4) Total Bilirubin 0.4 MG/DL (0.2-1.0) Aspartate Amino Transf (AST/SGOT) 12 U/L (15-37) L Alanine Aminotransferase (ALT/SGPT) 19 U/L (12-78) Alkaline Phosphatase 93 U/L (46-116) Total Creatine Kinase 74 U/L (26-308) Troponin I 0.000 ng/mL (0.000-0.056) Pro-B-Type Natriuretic Peptide 94 pg/mL (0-125) Total Protein 7.2 G/DL (6.4-8.2) Albumin 3.9 G/DL (3.4-5.0) Globulin 3.3 g/dL Albumin/Globulin Ratio 1.2 (1.0-2.7) Lactic Acid Level 2.10 mmol/L (0.4-2.0) H 2.00 mmol/L (0.66-2.22) Urine Color Yellow Urine Appearance Cloudy Urine pH 5 (4.5-8.0) Urine Specific [place] 1.025 (1.005-1.035) Urine Protein 2+ (NEGATIVE) H Urine Glucose (UA) Negative (NEGATIVE) Urine Ketones 2+ (NEGATIVE) H Urine Blood Negative (NEGATIVE) Urine Nitrite Negative (NEGATIVE) Urine Bilirubin Negative (NEGATIVE) Urine Urobilinogen 4 MG/DL (0.0-1.0) H Urine Leukocyte Esterase Negative (NEGATIVE) Urine RBC 2-4 /HPF (0 - 2) H Urine WBC 0-2 /HPF (0 - 2) Urine Squamous Epithelial Cells Many /LPF (NONE/OCC) H Urine Bacteria Few /HPF (NONE) Urine Mucus Moderate /LPF (NONE/OCC) H Test 12/01/18 03:25 White Blood Count 5.4 K/UL (4.8-10.8) Red Blood Count 4.11 M/UL (4.20-5.40) L Hemoglobin 12.5 G/DL (12.0-16.0) Hematocrit 36.8 % (37.0-47.0) L Mean Corpuscular Volume 90 FL (80-99) Mean Corpuscular Hemoglobin 30.5 PG (27.0-31.0) Mean Corpuscular Hemoglobin Concent 34.0 G/DL (32.0-36.0) Red Cell Distribution Width 10.5 % (11.6-14.8) L Platelet Count 259 K/UL (150-450) Mean Platelet Volume 6.4 FL (6.5-10.1) L Neutrophils (%) (Auto) % (45.0-75.0) Lymphocytes (%) (Auto) % (20.0-45.0) Monocytes (%) (Auto) % (1.0-10.0) Eosinophils (%) (Auto) % (0.0-3.0) Basophils (%) (Auto) % (0.0-2.0) Sodium Level 141 MMOL/L (136-145) Potassium Level 3.5 MMOL/L (3.5-5.1) Chloride Level 110 MMOL/L (98-107) H Carbon Dioxide Level 22 MMOL/L (21-32) Anion Gap 9 mmol/L (5-15) Blood Urea Nitrogen 11 mg/dL (7-18) Creatinine 0.9 MG/DL (0.55-1.30) Estimat Glomerular Filtration Rate > 60 mL/min (>60) Glucose Level 206 MG/DL (74-106) H Calcium Level 8.7 MG/DL (8.5-10.1) Total Bilirubin 0.3 MG/DL (0.2-1.0) Aspartate Amino Transf (AST/SGOT) 15 U/L (15-37) Alanine Aminotransferase (ALT/SGPT) 15 U/L (12-78) Alkaline Phosphatase 76 U/L (46-116) Total Protein 6.4 G/DL (6.4-8.2) Albumin 3.3 G/DL (3.4-5.0) L Globulin 3.1 g/dL Albumin/Globulin Ratio 1.1 (1.0-2.7) Height (Feet): 5 Height (Inches): 7.00 Weight (Pounds): 184 Medications Current Medications Medications (Trade) Dose Ordered Sig/Ashli Route PRN Reason Start Time Stop Time Status Last Admin Dose Admin Acetaminophen (Tylenol) 650 mg Q4H PRN ORAL Mild Pain/Temp > 100.5 10/7/19 01:30 12/31/18 01:29 12/01/18 01:53 Fluticasone/ Vilanterol (Breo Ellipta 200/25) 1 puffs DAILY INH 12/01/18 09:00 12/31/18 08:59 12/01/18 09:11 Heparin Sodium (Porcine) (Heparin 5000 units/ml) 5,000 units EVERY 12 HOURS SUBQ 12/01/18 09:00 12/31/18 08:59 12/01/18 08:55 Hydroxyzine HCl (Atarax) 50 mg DAILY ORAL 12/01/18 09:00 12/31/18 08:59 12/01/18 08:56 Ipratropium [place] (Atrovent) 500 mcg Q4HRT HHN 12/01/18 03:00 12/06/18 02:59 12/01/18 11:01 Ipratropium [place] (Atrovent) 500 mcg Q4HRT PRN N Shortness of Breath 12/01/18 01:30 12/06/18 01:29 12/01/18 07:40 Levalbuterol HCl (Xopenex) 0.63 mg Q4HRT HHN 12/01/18 15:00 12/06/18 14:59 Montelukast Sodium (Singulair) 10 mg QPM ORAL 12/01/18 16:30 12/31/18 16:29 Oxybutynin Chloride (Ditropan) 5 mg DAILY ORAL 12/01/18 09:00 12/31/18 08:59 12/01/18 08:56 Prednisone (predniSONE) 40 mg DAILY ORAL 12/01/18 11:00 12/06/18 10:59 12/01/18 11:55 Assessment/Plan Problem List: (1) COPD exacerbation ICD Codes: J44.1 - Chronic obstructive pulmonary disease with (acute) exacerbation SNOMED: 354526305 (2) Asthma ICD Codes: J45.909 - Unspecified asthma, uncomplicated SNOMED: 580525086 (3) COPD (chronic obstructive pulmonary disease) ICD Codes: J44.9 - Chronic obstructive pulmonary disease, unspecified SNOMED: 76063138 (4) On home oxygen therapy ICD Codes: Z99.81 - Dependence on supplemental oxygen SNOMED: 707756431656 (5) Former smoker ICD Codes: Z87.891 - Personal history of nicotine dependence SNOMED: 1272799 Assessment/Plan: ABG Optimize pulmonary hygiene/mobilize as tolerated Titrate down FiO2 to keep SaO2 > 90% RTC and PRN ATROVENT and LEVALBUTEROL HHN's (states gets palpitations with ALBUTEROL) Pred 40 (D1) Doxy (D1) D/C QVAR, continue BREO for now - UNCLEAR WHY ON ICS + LABA/ICS + LABA/LAMA/ICS Needs an outpatient evaluation, full PFT's, A1AT testing, CT chest, etc F/U Duplex and D-dimer Continue to abstain from smoking DVT Px: Hep SQ FC Preet Khan MD Dec 01, 2018 12:05
--- NOTE | 2018-12-01 12:17 | NUR ---
NURSE NOTES: Sputum collected and sent to lab.
--- NOTE | 2018-12-01 12:26 | NUR ---
NURSE NOTES: Patient requested extra food. Called dietary for extra plate.
[2018-12-01] MEDS ORDERED: Levalbuterol Inh UD 1.25mg/0.5ml HHN SCH (15:00)
--- NOTE | 2018-12-01 15:15 | NUR ---
CASE MANAGEMENT: REVIEW 37 YR OLD FEMALE FROM HOME CC: DYSPNEA/ RESP. DISTRESS SI: ASTHMATICUS, EOSINOPHILIA 97.1 110 21 131/68 99%RA K+ 3.3; BG 130; AST 12; LA 2.10; ABG: pCO2 32.4; HCO3 20.7; IS: IVF NS BOLUS X2 IV MAG SULFATE X1 IM EPINEPHRINE X1 IV SOLUMEDROL X1 ATROVENT HHN X1 PROVENTIL HHN X1 K-DUR PO X1 : 2W SD UNIT DCP: RETURN HOME CASE MANAGEMENT: REVIEW 12/01/18 SI: ASTHMATICUS, EOSINOPHILIA 98.1 98 20 133/70 98% NC 2L RBC 4.11; Hct 36.8; BG 206; AST 12; LA 2.10; ABG: pCO2 32.4; HCO3 20.7; D-DIMER 1.46; IS: ZITHROMYCIN PO QD DOXYCYCLINE PO Q12HR PRENISONE SQ QD HEPARIN SQ Q12HR OXYBUTYNIN PO QD HYDROXYZINE PO QD FLUTICASONE INH QDIVF NS BOLUS X2 ATROVENT HHN Q4/PRN QVAR INH X1 : 2W SD UNIT DCP: RETURN HOME
[2018-12-01] MEDS ORDERED: Montelukast 10mg tablet ORAL SCH (16:30)
--- NOTE | 2018-12-01 17:06 | NUR ---
NURSE NOTES: Received orders to transfer patient to med/surg.
--- NOTE | 2018-12-01 17:23 | History and Physical ---
History of Present Illness General Date patient seen: Dec 01, 2018 Reason for Hospitalization: Dyspnea/Respdistress Present Illness HPI Thi sis a 37 year old female with a PMHx COPD/Asthma on 4L home O2, eosinophilia with history of intubation presenting with acute dyspnea x 1 day. Patient was sleeping and her oxygen fell off and felt very short of breath. Despite putting her O2 back on her SOB persisted and attempted to use albuterol 4 times without relief. Patient called 911 due to acute SOB. Has also had a dry cough for past two days. NO fever, chills, nausea, vomiting, chest pain, palpitations, anxiety/depression. 2 weeks ago patient was discharged from [facility] for COPD/asthma exacerbation. During that hospitalization the patient was treated with azithromycin and discharged on 4 L of home oxygen. .Since discharge the patient has been doing well, until this most recent exacerbation yesterday. ER course: Patient was sinus tachycardic up to 120 afebrile normotensive with respirations in the 20s. WBC 5.4 rest of CMP normal, urinalysis negative. Chest x-ray showed possible right-sided infiltrate. Patient was given 125 mg Solu-Medrol x1 magnesium x1 and epinephrine x1. Social Hx: Smoking history includes [id number] smoking history. Patient quit in 2018 Patient endorses drinking alcohol socially. Patient endorses using marijuana occasionally Family history includes diabetes with her mother and CAD with her father. Past surgical history: Partial hysterectomy 2015, bladder reconstruction Allergies: Coded Allergies: No Known Allergies (Unverified , 11/30/18) Medication History Scheduled Albuterol Sulfate (Ventolin Hfa), 2 PUFFS INH EVERY 6 HOURS, (Reported) Albuterol Sulfate (Ventolin Hfa), 1 TAB PO EVERY 12 HOURS, (Reported) Beclomethasone Dipropionate 40MCG Oral Inh (Qvar 40*), 2 PUFF INH DAILY, ( Reported) Hydroxyzine Hcl (Hydroxyzine Hcl), 50 MG PO DAILY, (Reported) Montelukast Sodium (Singulair), 10 MG ORAL DAILY, (Reported) Oxybutynin Chloride (Oxybutynin Chloride), 5 MG ORAL DAILY, (Reported) Miscellaneous Medications Fluticasone/Vilanterol (Breo Ellipta 100-25 Mcg INH), 1 EACH IH, (Reported) Patient History Healthcare decision maker Resuscitation status Full Code Advanced Directive on File No Review of Systems Constitutional: Reports: no symptoms; Denies: see HPI, chills, sweats, fever, malaise, weakness, other Eye: Denies: see HPI, eye pain, blurred vision, tearing, double vision, nose pain, nose congestion, acuity changes, discharge, other ENT: Denies: see HPI, ear pain, ear discharge, nose pain, nose congestion, throat pain, throat swelling, mouth pain, hearing loss, nasal discharge, other Respiratory: Reports: no symptoms, cough, shortness of breath, wheezing; Denies : see HPI, orthopnea, stridor, PIERRE, sputum, other Cardiovascular: Denies: see HPI, chest pain, edema, palpitations, syncope, PND , other Gastrointestinal: Denies: see HPI, abdominal pain, constipation, diarrhea, nausea, vomiting, melena, hematemesis, other Genitourinary: Denies: see HPI, discharge, dysuria, frequency, hematuria, pain , retention, incontinence, urgency, vag bleed/dc, other Musculoskeletal: Denies: see HPI, back pain, gout, joint pain, joint swelling, muscle pain, muscle stiffness, other Skin: Denies: see HPI, rash, change in color, change in hair/nails, dryness, lesions, other Psychiatric: Denies: see HPI, prior hx, anxiety, depressed feelings, emotional problems, SI, HI, hallucinations, other Neurological: Denies: see HPI, headache, numbness, paresthesia, seizure, tingling, tremors, focal weakness, syncope, dizziness, other Endocrine: Denies: see HPI, excessive sweating, flushing, intolerance to temperature, increased thirst, increased urine, unexplained weight loss, other Hematologic/Lymphatic: Denies: see HPI, anemia, blood clots, easy bleeding, easy bruising, swollen glands, diathesis, other Physical Exam General Appearance: WD/WN, no apparent distress, alert Lines, tubes and drains: peripheral HEENT: normocephalic, atraumatic Neck: non-tender, normal alignment, supple Respiratory/Chest: chest wall non-tender, other - Decreased air movement in upper and lower lung blount posteriorly. No audible wheezing. 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 grossly normal, no motor/sensory deficits, abnormal gait , alert, oriented x 3 Last 24 Hour Vital Signs Date Time Temp Pulse Resp B/P (MAP) Pulse Ox O2 Delivery O2 Flow Rate FiO2 12/01/18 16:00 93 12/01/18 16:00 98.3 91 20 109/64 (79) 98 12/01/18 16:00 2.0 12/01/18 16:00 Nasal Cannula 2.0 Nasal Cannula 2.0 12/01/18 14:50 88 20 99 Room Air 21 94 22 97 12/01/18 12:00 2.0 12/01/18 12:00 76 12/01/18 12:00 98.6 87 20 120/74 (89) 98 12/01/18 12:00 Nasal Cannula 2.0 Nasal Cannula 2.0 12/01/18 11:01 92 20 99 Room Air 21 80 20 99 12/01/18 08:00 98.1 98 20 133/70 (91) 98 12/01/18 08:00 105 12/01/18 08:00 Nasal Cannula 2.0 Nasal Cannula 2.0 12/01/18 08:00 2.0 12/01/18 07:40 112 20 97 Room Air 21 118 22 94 12/01/18 06:51 102 18 98 Room Air 21 110 20 95 12/01/18 04:00 92 12/01/18 04:00 Nasal Cannula 2.0 Nasal Cannula 2.0 12/01/18 04:00 97.5 89 20 100/54 (69) 96 12/01/18 04:00 2.0 12/01/18 02:55 101 18 98 Room Air 21 100 20 96 12/01/18 02:03 Nasal Cannula 2.0 Nasal Cannula 2.0 12/01/18 01:00 97.5 110 20 120/66 (84) 96 12/01/18 00:40 98.2 86 19 136/84 97 Room Air 11/30/18 23:00 98 17 98 Room Air 21 11/30/18 22:45 109 21 96 Room Air 21 11/30/18 21:46 104 18 99 Room Air 21 11/30/18 21:31 108 19 99 Room Air 21 11/30/18 21:30 107 20 100 Room Air 21 11/30/18 21:15 111 20 100 Room Air 21 11/30/18 21:12 110 20 100 Room Air 21 11/30/18 20:56 108 22 98 Room Air 21 11/30/18 20:56 108 22 98 Room Air 21 11/30/18 20:45 104 22 Room Air 97 11/30/18 20:45 97.2 104 22 130/66 97 Room Air 11/30/18 20:37 97.2 110 21 131/68 (89) 99 Room Air Intake and Output 11/30/18 12/01/18 19:00 07:00 Intake Total 3060 ml Balance 3060 ml Intake Oral 360 ml IV Total 2700 ml # Voids 1 Laboratory Tests Test 11/30/18 20:43 11/30/18 21:50 11/30/18 22:39 11/30/18 23:40 White Blood Count 6.8 K/UL (4.8-10.8) Red Blood Count 4.70 M/UL (4.20-5.40) Hemoglobin 14.4 G/DL (12.0-16.0) Hematocrit 42.3 % (37.0-47.0) Mean Corpuscular Volume 90 FL (80-99) Mean Corpuscular Hemoglobin 30.7 PG (27.0-31.0) Mean Corpuscular Hemoglobin Concent 34.1 G/DL (32.0-36.0) Red Cell Distribution Width 10.1 % (11.6-14.8) L Platelet Count 275 K/UL (150-450) Mean Platelet Volume 6.7 FL (6.5-10.1) Neutrophils (%) (Auto) 42.8 % (45.0-75.0) L Lymphocytes (%) (Auto) 34.4 % (20.0-45.0) Monocytes (%) (Auto) 6.7 % (1.0-10.0) Eosinophils (%) (Auto) 14.6 % (0.0-3.0) H Basophils (%) (Auto) 1.5 % (0.0-2.0) Prothrombin Time 10.3 SEC (9.30-11.50) Prothromb Time International Ratio 1.0 (0.9-1.1) Activated Partial Thromboplast Time 26 SEC (23-33) Sodium Level 144 MMOL/L (136-145) Potassium Level 3.3 MMOL/L (3.5-5.1) L Chloride Level 107 MMOL/L (98-107) Carbon Dioxide Level 28 MMOL/L (21-32) Anion Gap 9 mmol/L (5-15) Blood Urea Nitrogen 14 mg/dL (7-18) Creatinine 1.0 MG/DL (0.55-1.30) Estimat Glomerular Filtration Rate > 60 mL/min (>60) Glucose Level 130 MG/DL (74-106) H Calcium Level 8.9 MG/DL (8.5-10.1) Magnesium Level 2.0 MG/DL (1.8-2.4) Total Bilirubin 0.4 MG/DL (0.2-1.0) Aspartate Amino Transf (AST/SGOT) 12 U/L (15-37) L Alanine Aminotransferase (ALT/SGPT) 19 U/L (12-78) Alkaline Phosphatase 93 U/L (46-116) Total Creatine Kinase 74 U/L (26-308) Troponin I 0.000 ng/mL (0.000-0.056) Pro-B-Type Natriuretic Peptide 94 pg/mL (0-125) Total Protein 7.2 G/DL (6.4-8.2) Albumin 3.9 G/DL (3.4-5.0) Globulin 3.3 g/dL Albumin/Globulin Ratio 1.2 (1.0-2.7) Lactic Acid Level 2.10 mmol/L (0.4-2.0) H 2.00 mmol/L (0.66-2.22) Urine Color Yellow Urine Appearance Cloudy Urine pH 5 (4.5-8.0) Urine Specific [place] 1.025 (1.005-1.035) Urine Protein 2+ (NEGATIVE) H Urine Glucose (UA) Negative (NEGATIVE) Urine Ketones 2+ (NEGATIVE) H Urine Blood Negative (NEGATIVE) Urine Nitrite Negative (NEGATIVE) Urine Bilirubin Negative (NEGATIVE) Urine Urobilinogen 4 MG/DL (0.0-1.0) H Urine Leukocyte Esterase Negative (NEGATIVE) Urine RBC 2-4 /HPF (0 - 2) H Urine WBC 0-2 /HPF (0 - 2) Urine Squamous Epithelial Cells Many /LPF (NONE/OCC) H Urine Bacteria Few /HPF (NONE) Urine Mucus Moderate /LPF (NONE/OCC) H Test 12/01/18 03:25 12/01/18 13:00 12/01/18 13:43 White Blood Count 5.4 K/UL (4.8-10.8) Red Blood Count 4.11 M/UL (4.20-5.40) L Hemoglobin 12.5 G/DL (12.0-16.0) Hematocrit 36.8 % (37.0-47.0) L Mean Corpuscular Volume 90 FL (80-99) Mean Corpuscular Hemoglobin 30.5 PG (27.0-31.0) Mean Corpuscular Hemoglobin Concent 34.0 G/DL (32.0-36.0) Red Cell Distribution Width 10.5 % (11.6-14.8) L Platelet Count 259 K/UL (150-450) Mean Platelet Volume 6.4 FL (6.5-10.1) L Neutrophils (%) (Auto) % (45.0-75.0) Lymphocytes (%) (Auto) % (20.0-45.0) Monocytes (%) (Auto) % (1.0-10.0) Eosinophils (%) (Auto) % (0.0-3.0) Basophils (%) (Auto) % (0.0-2.0) Sodium Level 141 MMOL/L (136-145) Potassium Level 3.5 MMOL/L (3.5-5.1) Chloride Level 110 MMOL/L (98-107) H Carbon Dioxide Level 22 MMOL/L (21-32) Anion Gap 9 mmol/L (5-15) Blood Urea Nitrogen 11 mg/dL (7-18) Creatinine 0.9 MG/DL (0.55-1.30) Estimat Glomerular Filtration Rate > 60 mL/min (>60) Glucose Level 206 MG/DL (74-106) H Calcium Level 8.7 MG/DL (8.5-10.1) Total Bilirubin 0.3 MG/DL (0.2-1.0) Aspartate Amino Transf (AST/SGOT) 15 U/L (15-37) Alanine Aminotransferase (ALT/SGPT) 15 U/L (12-78) Alkaline Phosphatase 76 U/L (46-116) Total Protein 6.4 G/DL (6.4-8.2) Albumin 3.3 G/DL (3.4-5.0) L Globulin 3.1 g/dL Albumin/Globulin Ratio 1.1 (1.0-2.7) D-Dimer 1.46 mg/L FEU (0.00-0.49) H Arterial Blood pH 7.424 (7.350-7.450) Arterial Blood Partial Pressure CO2 32.4 mmHg (35.0-45.0) L Arterial Blood Partial Pressure O2 99.3 mmHg (75.0-100.0) Arterial Blood HCO3 20.7 mmol/L (22.0-26.0) L Arterial Blood Oxygen Saturation 97.4 % (95-100) Arterial Blood Base Excess -2.8 (-2-2) L Lonnie Test Positive Height (Feet): 5 Height (Inches): 7.00 Weight (Pounds): 184 Medications Current Medications Medications (Trade) Dose Ordered Sig/Ashli Route PRN Reason Start Time Stop Time Status Last Admin Dose Admin Acetaminophen (Tylenol) 650 mg Q4H PRN ORAL Mild Pain/Temp > 100.5 12/01/18 01:30 12/31/18 01:29 12/01/18 01:53 Azithromycin (Zithromax) 250 mg DAILY ORAL 12/02/18 09:00 12/09/18 08:59 Doxycycline Monohydrate (Doxycycline Monohydrate) 100 mg EVERY 12 HOURS ORAL 12/01/18 21:00 12/08/18 20:59 Fluticasone/ Vilanterol (Breo Ellipta 200/25) 1 puffs DAILY INH 12/01/18 09:00 12/31/18 08:59 12/01/18 09:11 Heparin Sodium (Porcine) (Heparin 5000 units/ml) 5,000 units EVERY 12 HOURS SUBQ 12/01/18 09:00 12/31/18 08:59 12/01/18 08:55 Hydroxyzine HCl (Atarax) 50 mg DAILY ORAL 12/01/18 09:00 12/31/18 08:59 12/01/18 08:56 Ipratropium [place] (Atrovent) 500 mcg Q4HRT HHN 12/01/18 03:00 12/06/18 02:59 12/01/18 14:48 Ipratropium [place] (Atrovent) 500 mcg Q4HRT PRN HHN Shortness of Breath 12/01/18 01:30 12/06/18 01:29 12/01/18 07:40 Levalbuterol HCl (Xopenex) 0.63 mg Q4HRT HHN 12/01/18 15:00 12/06/18 14:59 12/01/18 14:48 Montelukast Sodium (Singulair) 10 mg QPM ORAL 12/01/18 16:30 12/31/18 16:29 12/01/18 16:34 Oxybutynin Chloride (Ditropan) 5 mg DAILY ORAL 12/01/18 09:00 12/31/18 08:59 12/01/18 08:56 Prednisone (predniSONE) 40 mg DAILY ORAL 12/01/18 11:00 12/06/18 10:59 12/01/18 11:55 Assessment/Plan Problem List: (1) COPD (chronic obstructive pulmonary disease) ICD Codes: J44.9 - Chronic obstructive pulmonary disease, unspecified SNOMED: 74076144 (2) Asthma ICD Codes: J45.909 - Unspecified asthma, uncomplicated SNOMED: 359236503 (3) On home oxygen therapy ICD Codes: Z99.81 - Dependence on supplemental oxygen SNOMED: 776383521535 (4) COPD exacerbation ICD Codes: J44.1 - Chronic obstructive pulmonary disease with (acute) exacerbation SNOMED: 661343497 (5) Status asthmaticus ICD Codes: J45.902 - Unspecified asthma with status asthmaticus SNOMED: 720529742 Qualifiers: Qualified Codes: J45.52 - Severe persistent asthma with status asthmaticus (6) Eosinophilia ICD Codes: D72.1 - Eosinophilia SNOMED: 306235053 Assessment/Plan: This is a 37-year-old female with a past medical history of asthma COPD on home O2 of 4 L who presents with a suspected COPD exacerbation. #Asthma/COPD exacerbation on home O2 4 L, may be triggered by infection. Unclear etiology at this point. Doubt PE, ACS. #Acute respiratory failure #Eosinophilia -Admit to telemetry with continuous pulse ox -Atrovent and levalbuterol every 4 hours and as needed -Appreciate pulmonology recommendations: Dr. Khan -Doxycycline 100mg PO daily -Prednisone 40 mg p.o. daily -Continue home Singulair 10 mg p.o. daily -D/C QVAR, continue BREO for now - UNCLEAR WHY ON ICS + LABA/ICS + LABA/LAMA/ICS -Needs an outpatient evaluation, full PFT's, A1AT testing, CT chest, etc -F/U Duplex and D-dimer #Tobacco dependence Counseling on tobacco cessation provided FEN PPX DVT ppx: Heparin SBQ GI PPx: none needed Fluids: none Diet: regular Discussed with RN, patient, pulmonology. 73 minutes spent on this encounter. Greater than 50% spent on care coordination and counseling. Adolfo Hoang D.O. Dec 01, 2018 17:23
--- NOTE | 2018-12-01 17:45 | NUR ---
NURSE NOTES: Received pt from NELLI RN RASHID. Pt is alert and orient x4. pt has NC 2LMP with continue pals oximeter 97%. pt has intact iv access RAC 20G SL. V/S stable. All needs attended, bed is locked and is in the lowest position. call light within easy reach. will continue to monitor.
--- NOTE | 2018-12-01 17:45 | NUR ---
TRANSFER TO FLOOR: Patient transferred to [facility], per Dr. Glenroy Keene. Report given to JOAQUÍN Bennett. Belongings checklist went over with receiving nurse at bedside. Family and or S/O informed of transfer.
--- NOTE | 2018-12-01 19:00 | NUR ---
NURSE NOTES: Received a report from JOAQUÍN Bennett. Pt is in stable condition. AAOX4. Able to make needs known. Uses nasal cannula 2L/min. No c/o pain/discomfort. IV site is patent and intact. Continue pulse oximetry for monitoring. Bed in lowest position. Bed alarm is on. Call light within reach. Will continue to monitor.
[2018-12-01] MEDS: Levalbuterol Inh UD 1.25mg/0.5ml HHN SCH ×2 (19:26→22:57)
--- NOTE | 2018-12-01 19:30 | NUR ---
HAND-OFF: Report given to PABLITO YANES.
[2018-12-01] MEDS ORDERED: Doxycycline Monohydrate 100mg ORAL SCH (21:00)
[2018-12-01] MEDS: Doxycycline Monohydrate 100mg ORAL SCH (21:07)
[2018-12-01] MEDS: Heparin 5000 units/ml inj SUBQ SCH (21:12)
[2018-12-02] VITALS: BP 106/62
[2018-12-02] MEDS: Levalbuterol Inh UD 1.25mg/0.5ml HHN SCH ×4 (02:47→15:18)
[2018-12-02] MEDS: Ipratropium 0.02% Inh Soln 2.5ml UD HHN SCH ×4 (02:47→15:18)
[2018-12-02 04:00] VITALS: BP 102/71
[2018-12-02 06:23] LABS: BASOPHILS % (AUTO) 0.4 % (0.0-2.0); EOSINOPHILS % (AUTO) 1.3 % (0.0-3.0); HEMATOCRIT 34.8 % (37.0-47.0); HEMOGLOBIN 11.9 G/DL (12.0-16.0); LYMPHOCYTES % (AUTO) 23.4 % (20.0-45.0); MEAN CORPUSCULAR VOLUME 90 FL (80-99); MONOCYTES % (AUTO) 6.7 % (1.0-10.0); NEUTROPHILS % (AUTO) 68.2 % (45.0-75.0); PLATELET COUNT 261 K/UL (150-450); RED BLOOD COUNT 3.88 M/UL (4.20-5.40); RED CELL DISTRIBUTION WIDTH 10.8 % (11.6-14.8); WHITE BLOOD COUNT 9.4 K/UL (4.8-10.8)
[2018-12-02 06:30] LABS: ANION GAP 11 mmol/L (5-15); BLOOD UREA NITROGEN 13 mg/dL (7-18); CARBON DIOXIDE 22 MMOL/L (21-32); CHLORIDE 110 MMOL/L (98-107); PHOSPHORUS 3.9 MG/DL (2.5-4.9); POTASSIUM 4.3 MMOL/L (3.5-5.1); SODIUM 143 MMOL/L (136-145)
--- NOTE | 2018-12-02 07:43 | NUR ---
NURSE NOTES: Patient awake, alert x4; on nasal cannula 2 Liter, no sign of shortness of breath; patient is getting breathing treatment; patient is asking to be discharge today, explained that there is no discharge order at this time, but will let MD know and inform patient with that; IV RAC 20G flushes well; side rails up x2, breaks engaged, bed at lowest position; call light within reach; will keep monitoring.
--- NOTE | 2018-12-02 07:44 | NUR ---
HAND-OFF: Report given to JOAQUÍN Carter.
[2018-12-02 08:00] VITALS: BP 104/73
[2018-12-02] MEDS: Doxycycline Monohydrate 100mg ORAL SCH (08:46)
[2018-12-02] MEDS: Heparin 5000 units/ml inj SUBQ SCH (08:48)
--- NOTE | 2018-12-02 08:53 | NUR ---
NURSE NOTES: Patient's IV line came out; patient refused to have access to another IV access;
[2018-12-02] MEDS ORDERED: HydrOXYzine 50mg tab ORAL SCH (09:00)
[2018-12-02] MEDS ORDERED: Azithromycin 250mg tab ORAL SCH ×2 (09:00)
[2018-12-02] MEDS ORDERED: Breo Ellipta 200/25mcg-14 dose INH SCH (09:00)
[2018-12-02] MEDS ORDERED: Oxybutynin 5mg tab ORAL SCH (09:00)
--- NOTE | 2018-12-02 09:33 | NUR ---
CASE MANAGEMENT: REVIEW 12/02/18 SI: COPD;ASTHMATICUS, EOSINOPHILIA 97.1 98 18 104/73 98% NC 2L RBC 3.88; H/H 11.9/34.8; MG 1.7 IS: IV MAG SULFATE X2 ZITHROMYCIN PO QD DOXYCYCLINE PO Q12HR PRENISONE SQ QD HEPARIN SQ Q12HR OXYBUTYNIN CHLORIDE PO QD HYDROXYZINE PO QD FLUTICASONE INH QDIVF NS BOLUS X2 ATROVENT HHN Q4/PRN XOPENEX HHN Q4HR : 2W SD UNIT DCP: RETURN HOME PLAN: LABS; FULL OUTPATIENT EVAL, CT CHEST,
--- NOTE | 2018-12-02 09:40 | NUR ---
NURSE NOTES: MD Hoang is aware that patient doesn't have IV access.
[2018-12-02] MEDS ORDERED: Omnipaue 350mg/ml 100ml vial INJ PRN (11:00)
--- NOTE | 2018-12-02 11:45 | NUR ---
NURSE NOTES: Patient left the floor for CT.
[2018-12-02 12:00] VITALS: BP 114/61
--- NOTE | 2018-12-02 13:05 | Pulmonology Progress Note ---
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 Needs an outpatient evaluation, full PFT's, A1AT testing, etc Continue to abstain from smoking DVT Px: Hep SQ FC If CT-A neg can be D/C'd later today from a pulmonary standpoint Subjective Allergies: Coded Allergies: No Known Allergies (Unverified , 09/25/15) Subjective AFVSS on RA D-dimer, duplex neg Less cough, less SOB, no wheezing, no FC, no CP Objective Last 24 Hour Vital Signs Date Time Temp Pulse Resp B/P (MAP) Pulse Ox O2 Delivery O2 Flow Rate FiO2 12/02/18 12:00 97.7 71 18 114/61 (78) 98 12/02/18 11:28 80 18 99 Room Air 21 78 20 96 12/02/18 08:00 97.7 98 18 104/73 (83) 98 12/02/18 07:21 95 18 99 Room Air 21 98 20 99 12/02/18 04:00 97.5 77 18 102/71 (81) 100 12/02/18 00:00 97.7 92 18 106/62 (77) 98 12/01/18 22:57 105 20 98 Nasal Cannula 2.0 28 12/01/18 20:00 97.5 97 21 118/57 (77) 97 12/01/18 20:00 Nasal Cannula 2.0 Nasal Cannula 2.0 12/01/18 19:38 101 18 99 Nasal Cannula 2.0 28 12/01/18 19:27 104 20 97 Room Air 21 12/01/18 17:45 98.4 94 19 106/61 (76) 97 12/01/18 16:00 93 12/01/18 16:00 98.3 91 20 109/64 (79) 98 12/01/18 16:00 2.0 12/01/18 16:00 Nasal Cannula 2.0 Nasal Cannula 2.0 12/01/18 14:50 88 20 99 Room Air 21 94 22 97 Intake and Output 12/01/18 12/02/18 19:00 07:00 Intake Total 350 ml 240 ml Balance 350 ml 240 ml Intake Oral 350 ml 240 ml # Voids 3 # Bowel Movements 2 General Appearance: WD/WN, no acute distress HEENT: normocephalic, atraumatic, anicteric, mucous membranes moist Respiratory/Chest: rhonchi, expiratory wheezing Cardiovascular: normal peripheral pulses, normal rate, regular rhythm Abdomen: normal bowel sounds, soft, non tender, no organomegaly, non distended , no mass Extremities: no cyanosis, no clubbing, no edema Microbiology Date/Time Source Procedure Growth Status 12/01/18 12:16 Sputum Expectorated Gram Stain - Final Resulted 12/01/18 12:16 Sputum Expectorated Sputum Culture - Preliminary NORMAL UPPER RESPIRATORY CRISTY AT 24 ... Resulted Laboratory Tests 12/01/18 13:43: Arterial Blood pH 7.424, Arterial Blood Partial Pressure CO2 32.4L, Arterial Blood Partial Pressure O2 99.3, Arterial Blood HCO3 20.7L, Arterial Blood Oxygen Saturation 97.4, Arterial Blood Base Excess -2.8L, Lonnie Test Positive 12/02/18 05:10: White Blood Count 9.4#, Red Blood Count 3.88L, Hemoglobin 11.9L, Hematocrit 34.8L, Mean Corpuscular Volume 90, Mean Corpuscular Hemoglobin 30.6, Mean Corpuscular Hemoglobin Concent 34.0, Red Cell Distribution Width 10.8L, Platelet Count 261, Mean Platelet Volume 6.3L, Neutrophils (%) (Auto) 68.2, Lymphocytes (%) (Auto) 23.4, Monocytes (%) (Auto) 6.7, Eosinophils (%) (Auto) 1.3, Basophils (%) (Auto) 0.4, Sodium Level 143, Potassium Level 4.3, Chloride Level 110H, Carbon Dioxide Level 22, Anion Gap 11, Blood Urea Nitrogen 13, Creatinine 1.0, Estimat Glomerular Filtration Rate > 60, Glucose Level 100#, Calcium Level 9.0, Phosphorus Level 3.9, Magnesium Level 1.7L Current Medications Medications (Trade) Dose Ordered Sig/Ashli Route PRN Reason Start Time Stop Time Status Last Admin Dose Admin Acetaminophen (Tylenol) 650 mg Q4H PRN ORAL Mild Pain/Temp > 100.5 12/01/18 19:00 12/31/18 18:59 Azithromycin (Zithromax) 250 mg DAILY ORAL 12/02/18 09:00 12/09/18 08:59 12/02/18 08:45 Doxycycline Monohydrate (Doxycycline Monohydrate) 100 mg EVERY 12 HOURS ORAL 12/01/18 21:00 12/08/18 20:59 12/02/18 08:46 Fluticasone/ Vilanterol (Breo Ellipta 200/25) 1 puffs DAILY INH 12/02/18 09:00 12/31/18 08:59 12/02/18 10:00 Heparin Sodium (Porcine) (Heparin 5000 units/ml) 5,000 units EVERY 12 HOURS SUBQ 12/01/18 21:00 12/31/18 08:59 12/02/18 08:48 Hydroxyzine HCl (Atarax) 50 mg DAILY ORAL 12/02/18 09:00 12/31/18 08:59 12/02/18 08:46 Iohexol (Omnipaque) 100 mg NOW PRN INJ Radiology Procedure 12/02/18 11:00 12/04/18 10:51 Ipratropium [place] (Atrovent) 500 mcg Q4H PRN HHN Shortness of Breath 12/01/18 19:00 12/06/18 18:59 Ipratropium [place] (Atrovent) 500 mcg Q4HRT HHN 12/01/18 19:00 12/06/18 02:59 12/02/18 11:28 Levalbuterol HCl (Xopenex) 0.625 mg Q4HRT HHN 12/01/18 19:00 12/06/18 14:59 12/02/18 11:28 Montelukast Sodium (Singulair) 10 mg QPM ORAL 12/02/18 16:30 12/31/18 16:29 Oxybutynin Chloride (Ditropan) 5 mg DAILY ORAL 12/02/18 09:00 12/31/18 08:59 12/02/18 08:46 Prednisone (predniSONE) 40 mg DAILY ORAL 12/02/18 09:00 12/06/18 10:59 12/02/18 08:46 Preet Khan MD Dec 02, 2018 13:05
--- NOTE | 2018-12-02 13:31 | NUR ---
*-* INSURANCE *-* ALL CLINICALS AND REVIEWS HAVE BEEN FAXED TO: [facility]# [id number] NCM: DHARA P- [phone] F- [phone]...........REVIEW/CLINICAL
--- NOTE | 2018-12-02 13:46 | NUR ---
NURSE NOTES: After CT was done, patient's IV was leaking; patient refused to have another IV access and couldn't able to hung the second bag of Magnesium. Charge nurse, Ranjana is aware.
--- NOTE | 2018-12-02 13:59 | General Progress Note ---
Assessment/Plan Problem List: (1) COPD (chronic obstructive pulmonary disease) ICD Codes: J44.9 - Chronic obstructive pulmonary disease, unspecified SNOMED: 26727413 (2) Asthma ICD Codes: J45.909 - Unspecified asthma, uncomplicated SNOMED: 682539409 (3) On home oxygen therapy ICD Codes: Z99.81 - Dependence on supplemental oxygen SNOMED: 107966778680 (4) COPD exacerbation ICD Codes: J44.1 - Chronic obstructive pulmonary disease with (acute) exacerbation SNOMED: 115583223 (5) Status asthmaticus ICD Codes: J45.902 - Unspecified asthma with status asthmaticus SNOMED: 036243498 Qualifiers: (6) Eosinophilia ICD Codes: D72.1 - Eosinophilia SNOMED: 358474722 Assessment/Plan: This is a 37-year-old female with a past medical history of asthma COPD on home O2 of 4 L who presents with a suspected COPD exacerbation. #Asthma/COPD exacerbation on home O2 4 L, may be triggered by infection. Unclear etiology at this point. Doubt ACS. Must rule out PE given elevated D- Dimer per pulmonology- IMPROVING #Acute respiratory failure #Eosinophilia > d-dimer elevated to 1.56 > venous duplex negative -Admit to telemetry with continuous pulse ox -Atrovent and levalbuterol every 4 hours and as needed -Appreciate pulmonology recommendations: Dr. Khan -Doxycycline 100mg PO daily day 2 -Prednisone 40 mg p.o. daily day 2 -Continue home Singulair 10 mg p.o. daily -D/C QVAR, continue BREO for now - UNCLEAR WHY ON ICS + LABA/ICS + LABA/LAMA/ICS -Needs an outpatient evaluation, full PFT's, A1AT testing, CT chest, etc -CTPA to rule out PE today. patient consented #Tobacco dependence Counseling on tobacco cessation provided FEN PPX DVT ppx: Heparin SBQ GI PPx: none needed Fluids: none Diet: regular Discussed with RN, patient, pulmonology. 37 minutes spent on this encounter. Greater than 50% spent on care coordination and counseling. Subjective Date patient seen: Dec 02, 2018 Constitutional: Denies: chills, diaphoresis, fever, malaise, weakness, other HEENT: Denies: eye pain, blurred vision, tearing, double vision, ear pain, ear discharge, nose pain, nose congestion, throat pain, throat swelling, mouth pain , mouth swelling, other Cardiovascular: Denies: chest pain, edema, irregular heart rate, lightheadedness, palpitations, syncope, other Respiratory: Denies: cough, orthopnea, shortness of breath, SOB with excertion , SOB at rest, sputum, stridor, wheezing, other Gastrointestinal/Abdominal: Denies: abdomen distended, abdominal pain, black stools, tarry stools, blood in stool, constipated, diarrhea, difficulty swallowing, nausea, poor appetite, poor fluid intake, rectal bleeding, vomiting , other Genitourinary: Denies: burning, discharge, frequency, flank pain, hematuria, incontinence, pain, urgency, other Neurologic/Psychiatric: Denies: anxiety, depressed, emotional problems, headache, numbness, paresthesia, pre-existing deficit, seizure, tingling, tremors, weakness, other Endocrine: Denies: excessive sweating, flushing, intolerance to cold, intolerance to heat, increased hunger, increased thirst, increased urine, unexplained weight gain, unexplained weight loss, other Hematologic/Lymphatic: Denies: anemia, easy bleeding, easy bruising, other Allergies: Coded Allergies: No Known Allergies (Unverified , 09/25/15) Subjective No acute events overnight per nursing. Patient titrated down to 2 L nasal cannula. Patient feels much better today. She continues to have a cough but this is at her baseline. The patient denies any chest pain, palpitation, nausea , vomiting, fever, chills. States Objective Last 24 Hour Vital Signs Date Time Temp Pulse Resp B/P (MAP) Pulse Ox O2 Delivery O2 Flow Rate FiO2 12/02/18 12:00 97.7 71 18 114/61 (78) 98 12/02/18 11:28 80 18 99 Room Air 21 78 20 96 12/02/18 08:00 97.7 98 18 104/73 (83) 98 12/02/18 07:21 95 18 99 Room Air 21 98 20 99 12/02/18 04:00 97.5 77 18 102/71 (81) 100 12/02/18 00:00 97.7 92 18 106/62 (77) 98 12/01/18 22:57 105 20 98 Nasal Cannula 2.0 28 12/01/18 20:00 97.5 97 21 118/57 (77) 97 12/01/18 20:00 Nasal Cannula 2.0 Nasal Cannula 2.0 12/01/18 19:38 101 18 99 Nasal Cannula 2.0 28 12/01/18 19:27 104 20 97 Room Air 21 12/01/18 17:45 98.4 94 19 106/61 (76) 97 12/01/18 16:00 93 12/01/18 16:00 98.3 91 20 109/64 (79) 98 12/01/18 16:00 2.0 12/01/18 16:00 Nasal Cannula 2.0 Nasal Cannula 2.0 12/01/18 14:50 88 20 99 Room Air 21 94 22 97 Intake and Output 12/01/18 12/02/18 19:00 07:00 Intake Total 350 ml 240 ml Balance 350 ml 240 ml Intake Oral 350 ml 240 ml # Voids 3 # Bowel Movements 2 Laboratory Tests 12/02/18 05:10: White Blood Count 9.4#, Red Blood Count 3.88L, Hemoglobin 11.9L, Hematocrit 34.8L, Mean Corpuscular Volume 90, Mean Corpuscular Hemoglobin 30.6, Mean Corpuscular Hemoglobin Concent 34.0, Red Cell Distribution Width 10.8L, Platelet Count 261, Mean Platelet Volume 6.3L, Neutrophils (%) (Auto) 68.2, Lymphocytes (%) (Auto) 23.4, Monocytes (%) (Auto) 6.7, Eosinophils (%) (Auto) 1.3, Basophils (%) (Auto) 0.4, Sodium Level 143, Potassium Level 4.3, Chloride Level 110H, Carbon Dioxide Level 22, Anion Gap 11, Blood Urea Nitrogen 13, Creatinine 1.0, Estimat Glomerular Filtration Rate > 60, Glucose Level 100#, Calcium Level 9.0, Phosphorus Level 3.9, Magnesium Level 1.7L D-dimer: 1.46 (elevated) Venous duplex LE: Negative for DVT Height (Feet): 5 Height (Inches): 7.00 Weight (Pounds): 184 General Appearance: WD/WN, no apparent distress, alert EENT: PERRL/EOMI, normal ENT inspection Neck: non-tender, normal alignment, supple Cardiovascular: normal peripheral pulses, normal rate, regular rhythm, no JVD Respiratory/Chest: chest wall non-tender, normal breath sounds, no respiratory distress, other - much better air flow today than yesterday. No wheezing heard Abdomen: normal bowel sounds, non tender, soft, no organomegaly, no mass Extremities: normal range of motion, non-tender, normal inspection, no calf tenderness Neurologic: vp patient II-XII grossly normal, no motor/sensory deficits, alert, oriented x 3, responsive, normal mood/affect Skin: normal pigmentation, warm/dry Adolfo Hoang D.O. Dec 02, 2018 13:59
--- NOTE | 2018-12-02 14:34 | Diagnostic Imaging Report ---
ndication: Shortness of breath, chest pain Technique: IV administration nonionic contrast. Spiral acquisitions obtained from the lung bases to the lung apices. Multiplanar and 3-D reconstructions were generated. Total dose length product 785 mGycm. CTDIvol(s) 40 mGy. Dose reduction achieved using automated exposure control Comparison: none Findings: The pulmonary arteries are well-opacified. However, there is considerable image degradation due to motion artifact. There are no large vessel central pulmonary emboli demonstrated. However, smaller peripheral emboli cannot be excluded with any confidence due to the motion artifact. No pulmonary arterial dilatation. No evidence of right ventricular dilatation. The heart size is upper limits of normal. No evidence of thoracic aortic aneurysm or dissection. There is classic branching anatomy of and normal caliber of the great neck vessels. Lungs demonstrate bilateral basilar atelectatic change. There is a larger area of subsegmental atelectasis involving the anterior inferior left lower lobe. No infiltrates. No masses, effusions, or nodules. Generalized groundglass opacity is probably artifactual due to the motion artifact No pericardial effusion. No mediastinal or hilar mass or adenopathy. No axillary or chest wall mass or adenopathy. The included upper abdominal anatomy is unremarkable. Impression: Limited exam, due to respiratory motion artifact. No gross large vessel central pulmonary emboli; distal emboli not completely excludable however Bilateral basilar atelectasis. Larger area of subsegmental atelectasis in the anterior inferior left lower lobe The CT scanner at [facility] is accredited by the [employer] and the scans are performed using protocols designed to limit radiation exposure to as low as reasonably achievable to attain images of sufficient resolution adequate for diagnostic evaluation.
[2018-12-02 16:00] VITALS: BP 119/76
[2018-12-02] MEDS ORDERED: Montelukast 10mg tablet ORAL SCH (16:30)
[2018-12-02] MEDS ORDERED: PREDNISONE20 MG ORAL (16:46)
[2018-12-02] MEDS ORDERED: BREO ELLIPTA 21 EACH INH (16:46)
[2018-12-02] MEDS ORDERED: DOXYCYCLINE HY100 M2 ORAL (16:46)
[2018-12-02] MEDS ORDERED: SPACE CHAMBER1 EACH MC (16:50)
[2018-12-02] MEDS ORDERED: IPRATROPIU0.2 MG/1 M HHN ×2 (16:50)
[2018-12-02] MEDS ORDERED: XOPENEX0.5 MG HHN (16:50)
[2018-12-02] MEDS ORDERED: ROBITUSSIN COU237 M2 PO (16:52)
--- NOTE | 2018-12-02 16:57 | Discharge Instructions ---
Discharge Instructions Discharge Instructions Follow up with: PCP within one week and pulmonlogist as scheduled Call MD/Return to Hospital if: your breathing worsens Diet: regular Activity: resume normal activities Special Instructions Continue home O2 at 2 liters until you see your doctor. Complete 3 more days of doxycycline and prednisone Use xopenox (this is the new medication that does not give you palpitations) or atrovent as needed for shortness of breath You need outpatient pulmonary function testing and alpha 1 antitrypsin testing. Ask your doctor about this Continue to stop smoking Adolfo Hoang D.O. Dec 02, 2018 16:57
[2018-12-02] MEDS ORDERED: AEROECLIPSE II1 EACH MC (17:12)
--- NOTE | 2018-12-02 17:12 | Discharge Summary ---
Discharge Summary Hospital Course Date of Admission Nov 30, 2018 at 22:09 Date of Discharge 12/02/18 Admitting Diagnosis status asthmaticus HPI Latonya Dobson is a 37 year old female who was admitted on Nov 30, 2018 at 22:09 for Status Asthmaticus Consultations Pulmonology Procedures CTPA Hospital Course This is a 37 year old female with a PMHx COPD/Asthma on 4L home O2, eosinophilia with history of intubation presenting with acute dyspnea x 1 day. Patient was sleeping and her oxygen fell off and felt very short of breath. Despite putting her O2 back on her SOB persisted and attempted to use albuterol 4 times without relief. Patient called 911 due to acute SOB. Has also had a dry cough for past two days. NO fever, chills, nausea, vomiting, chest pain, palpitations, anxiety/depression. 2 weeks ago patient was discharged from [facility] for COPD/asthma exacerbation. During that hospitalization the patient was treated with azithromycin and discharged on 4 L of home oxygen. .Since discharge the patient has been doing well, until this most recent exacerbation yesterday. ER course: Patient was sinus tachycardic up to 120 afebrile normotensive with respirations in the 20s. WBC 5.4 rest of CMP normal, urinalysis negative. Chest x-ray showed possible right-sided infiltrate. Patient was given 125 mg Solu-Medrol x1 magnesium x1 and epinephrine x1. The patient was admitted for COPD exacerbation. Pulmonology was consulted. She was given prednisone 40 mg p.o. daily and doxycycline 100 mg p.o. every 12 hours. The patient was given Atrovent and Xopenex q4h ATC. The patient's oxygen was titrated down to 2 L nasal cannula and she was saturating well. The patient improved and her breathing went back to her baseline status. A d-dimer was checked which was elevated at 1.56. CT pulmonary angiogram of the chest was performed to rule out pulmonary embolism and it was negative. A Doppler of her lower extremities was also negative for DVT The patient was discharged on doxycycline and prednisone 40 mg p.o. daily to complete a 5-day course. She was continued on 2 L of home O2. She was instructed to follow-up with her primary care provider within 1 week. She has an appointment with her mapper at the end of the month. The patient needs a full outpatient evaluation of her COPD including full PFTs, alpha-1 antitrypsin testing. Her home regimen would consist of Breo 200 daily Atrovent and Xopenex every 4 hours as needed. The patient was counseled to continue to abstain from smoking. The patient was hemodynamically stable on discharge. She was discharged home. #Asthma/COPD exacerbation on home O2 4 L, may be triggered by infection. Unclear etiology at this point. Doubt ACS. Must rule out PE given elevated D- Dimer per pulmonology- IMPROVING #Acute respiratory failure #Eosinophilia > d-dimer elevated to 1.56 > venous duplex negative -Admit to telemetry with continuous pulse ox -Atrovent and levalbuterol every 4 hours and as needed -Appreciate pulmonology recommendations: Dr. Khan -Doxycycline 100mg PO daily day 2 -Prednisone 40 mg p.o. daily day 2 -Continue home Singulair 10 mg p.o. daily -D/C QVAR, continue BREO for now - UNCLEAR WHY ON ICS + LABA/ICS + LABA/LAMA/ICS -Needs an outpatient evaluation, full PFT's, A1AT testing, CT chest, etc -CTPA to rule out PE today. patient consented - negative #Tobacco dependence Counseling on tobacco cessation provided Physical exam: Vitals: 97.6 pulse 61 respirations: 18 BP 119/76 Sat: 98% on 2L General: Well-developed well-nourished female in no acute distress Cardiovascular: Regular rate and rhythm no murmurs rubs or gallops Pulmonology: Clear to auscultation bilaterally with good air movement good chest rise no wheezes rhonchi or rales GI: Abdomen soft nontender nondistended bowel sounds present Extremities no lower extremity edema bilaterally Skin: No rashes lesions or ulcers noted Neuro no focal signs MSK: No joint swelling in upper extremity and lower extremity bilaterally Discussed with RN, patient, pulmonology. > 30 minutes spent on discharge. Greater than 50% spent on care coordination and counseling. Discharge Discharge Disposition Patient was discharged to home Discharge Diagnoses: (1) COPD exacerbation (2) COPD (chronic obstructive pulmonary disease) (3) Acute respiratory failure (4) Status asthmaticus (5) Elevated d-dimer (6) On home oxygen therapy Discharge Instructions Discharge Instructions Follow up with: PCP within one week and pulmonlogist as scheduled Call MD/Return to Hospital if: your breathing worsens Activity: resume normal activities Adolfo Hoang D.O. Dec 02, 2018 17:12
--- NOTE | 2018-12-02 18:51 | NUR ---
NURSE NOTES: patient left the floor around 182; IV access and name tag removed; belonging list singed by primary nurse and patient; prescribed medications delivered by the [facility] pharmacy given to patient; patient was stable upon discharge. printed material given to patient. patient was picked up by family member.
--- NOTE | 2018-12-04 13:12 | Diagnostic Imaging Report ---
APPROVED REPORT CPT Code: 65806 Present Symptoms Shortness of breath BILATERAL: Imaging reveals a patent deep venous system bilaterally. There is no evidence of thrombus within the femoral, popliteal or tibial segments. The greater saphenous veins are also within normal limits. Doppler indicates normal spontaneous flow within these segments.
--- NOTE | 2018-12-04 21:12 | Cardiology Report ---
APPROVED REPORT EKG Measurement Heart [id number] OR 120P79 [id number] Sinus tachycardia Possible Left atrial enlargement Borderline ECG
--- NOTE | 2018-12-05 16:06 | NUR ---
*-* INSURANCE *-* DISCHARGE SUMMARY HAVE BEEN FAXED TO: [facility] [place]# [id number] [place]: DHARA P- [phone] [phone]...........REVIEW/CLINICAL
== END 2018-12-02 18:17 | disposition home or self-care (01) | DRG 140 ==
LOC: EDBD 20:35 → EMR 21:10 → MERGE 22:09 → 2W 22:09 → EDBEDREQ 12-01 00:13 → 4E 12-01 17:51
DX: J44.1 Chronic obstructive pulmonary disease with (acute) exacerbation (principal); J45.902 Unspecified asthma with status asthmaticus; D72.1 Eosinophilia; J96.00 Acute respiratory failure, unspecified whether with hypoxia or hypercapnia; Z99.81 Dependence on supplemental oxygen; Z87.891 Personal history of nicotine dependence
CPT/HCPCS: 36415; 36600; 71045; 71275; 80048; 80053; 81003; 82550; 82803; 83605; 83735; 83880; 84100; 84484; 85025; 85379; 85610; 85730; 87070; 87205; 93005; 93970; 94640; 94664; 96361; 96365; 96372; 96375; 99291; J2405; J8499

== ENCOUNTER 2019-02-12 04:11 | Emergency (ER) | payer OTHER ==
[~2019-02-12] VITALS: Ht 165.1 cm; Wt 81.6 kg
[~2019-02-12 04:11] MED LIST changes: +AEROECLIPSE II1 EACH MC; +BREO ELLIPTA 11 EACH IH; +BREO ELLIPTA 21 EACH INH; +DOXYCYCLINE HY100 M2 ORAL; +HYDROXYZINE HCL50 M1 PO; +OXYBUTYNIN CHLOR5 M1 ORAL; +QVAR7.3 GM INH; +ROBITUSSIN COU237 M2 PO; +SINGULAIR5 M1 ORAL; +SPACE CHAMBER1 EACH MC; +VENTOLIN HFA18 GM INH; +VENTOLIN HFA18 GM PO; +XOPENEX0.5 MG HHN
[2019-02-12 04:15] VITALS: BP 139/83
[2019-02-12] MEDS ORDERED: Albuterol ud Inhalation HHN ONE ×2 (04:15→05:00)
[2019-02-12] MEDS ORDERED: Ipratropium 0.02% Inh Soln 2.5ml UD HHN ONE (04:15)
[2019-02-12] MEDS ORDERED: Solu-MEDROL 125mg Inj ONE (04:15)
[2019-02-12] MEDS ORDERED: Solu-MEDROL 125mg Inj IVP ONE (04:15)
--- NOTE | 2019-02-12 04:15 | NUR ---
ED Nurse Note: Pt brought in by ambulance from home d/t respiratory distress. Patient has hx of emphysema. Patient aao x 4 and ambulatory. Patient placed on security monitor, blood drawn, RT and ERMD at bedside. EKG completed. 18g IV on right AC inserted, asymptomatic, intact, and patent.
--- NOTE | 2019-02-12 04:15 | NUR ---
ED Nurse Note: Per RT, pt placed on bipap 40% and 7L O2
--- NOTE | 2019-02-12 04:16 | Emergency Room Report ---
History of Present Illness General Chief Complaint: Dyspnea/Respdistress Source: Patient, EMS Present Illness HPI 38-year-old female with severe asthma on home O2 3 L presents with acute respiratory distress. Brought in by EMS given 5 mg albuterol nebulizer, 0.5 mg epinephrine 1-1000 intramuscular, placed on CPAP. Of note patient symptoms started 2 days ago with just wheezing. Patient reported she has been intubated twice in the past. History is limited due to severe respiratory distress. Allergies: Coded Allergies: No Known Allergies (Unverified , 09/25/15) Patient History Last Menstrual Period: UNK Nursing Documentation-PMH Past Medical History: No History, Except For Hx Cardiac Problems: No Hx Hypertension: No Hx Pacemaker: No Hx Asthma: Yes Hx COPD: Yes - EMPHYSEMA, COPD Hx Diabetes: No Hx Cancer: No Hx Gastrointestinal Problems: No Hx Dialysis: No Hx Neurological Problems: No Hx Cerebrovascular Accident: No Hx Seizures: No Review of Systems All Other Systems: limited - Limited due to severe respiratory distress, on CPAP Physical Exam Vital Signs Date Time Temp Pulse Resp B/P (MAP) Pulse Ox O2 Delivery O2 Flow Rate FiO2 02/12/19 04:08 99.0 121 27 144/106 (119) 91 Room Air Sp02 EP Interpretation: reviewed General Appearance: well appearing, non-toxic, severe distress - Respiratory Head: normocephalic, atraumatic Eyes: bilateral eye normal inspection ENT: hearing grossly normal, EOM grossly intact, moist mucus membranes Neck: supple Respiratory: respiratory distress, decreased breath sounds, accessory muscle use, wheezing - Severe, other - Unable to say words due to respiratory distress Cardiovascular #1: normal peripheral pulses, normal capillary refill, tachycardia Cardiovascular #2: 2+ radial (R), 2+ radial (L) Gastrointestinal: soft, non-distended Rectal: deferred Musculoskeletal: moves extm spontaneously, no lower extremity edema Neurologic: grossly normal Psychiatric: mood/affect normal Skin: warm/dry, normal turgor Procedures Critical Care Time Critical Care Time Critical care time taking care of patient for respiratory distress includes 45 minutes, not including teaching time or billable procedures. Medical Decision Making Diagnostic Impression: Primary Impression: Respiratory distress Additional Impressions: COPD exacerbation On home oxygen therapy Dyspnea ER Course 38-year-old female presents with severe respiratory distress reported history of prior intubations, started on CPAP. Given nebulizers and epinephrine with minimal movement of air or improvement. We will start protocol for severe COPD, asthma exacerbation. Including mag, BiPAP, continuous nebulizer treatments, steroids. Laboratory Tests Test 02/12/19 04:14 02/12/19 04:30 Arterial Blood pH 7.269 (7.350-7.450) Arterial Blood Partial Pressure CO2 45.3 mmHg (35.0-45.0) H Arterial Blood Partial Pressure O2 174.1 mmHg (75.0-100.0) H Arterial Blood HCO3 20.3 mmol/L (22.0-26.0) L Arterial Blood Oxygen Saturation 98.6 % (95-100) Arterial Blood Base Excess -6.6 (-2-2) L Lonnie Test Positive White Blood Count 7.0 K/UL (4.8-10.8) Red Blood Count 4.97 M/UL (4.20-5.40) Hemoglobin 14.8 G/DL (12.0-16.0) Hematocrit 44.1 % (37.0-47.0) Mean Corpuscular Volume 89 FL (80-99) Mean Corpuscular Hemoglobin 29.8 PG (27.0-31.0) Mean Corpuscular Hemoglobin Concent 33.5 G/DL (32.0-36.0) Red Cell Distribution Width 10.8 % (11.6-14.8) L Platelet Count 313 K/UL (150-450) Mean Platelet Volume 6.7 FL (6.5-10.1) Neutrophils (%) (Auto) 43.7 % (45.0-75.0) L Lymphocytes (%) (Auto) 35.9 % (20.0-45.0) Monocytes (%) (Auto) 10.3 % (1.0-10.0) H Eosinophils (%) (Auto) 9.1 % (0.0-3.0) H Basophils (%) (Auto) 1.1 % (0.0-2.0) Sodium Level 140 MMOL/L (136-145) Potassium Level 3.9 MMOL/L (3.5-5.1) Chloride Level 106 MMOL/L (98-107) Carbon Dioxide Level 25 MMOL/L (21-32) Anion Gap 9 mmol/L (5-15) Blood Urea Nitrogen 8 mg/dL (7-18) Creatinine 0.9 MG/DL (0.55-1.30) Estimate Glomerular Filtration Rate > 60 mL/min (>60) Glucose Level 126 MG/DL (74-106) H Calcium Level 8.8 MG/DL (8.5-10.1) Total Bilirubin 0.4 MG/DL (0.2-1.0) Aspartate Amino Transferase (AST) 13 U/L (15-37) L Alanine Aminotransferase (ALT) 21 U/L (12-78) Alkaline Phosphatase 71 U/L (46-116) Troponin I 0.000 ng/mL (0.000-0.056) Total Protein 7.3 G/DL (6.4-8.2) Albumin 3.8 G/DL (3.4-5.0) Globulin 3.5 g/dL Albumin/Globulin Ratio 1.1 (1.0-2.7) Lab Results Impression CBC within normal limits, chemistry within normal limits, blood gas noted to have decreased pH mildly elevated PCO2. EKG Diagnostic Results EKG Time: 04:21 EP Interpretation: Tachycardic, normal sinus Rate: tachycardiac ST Segments: no acute changes Other Impression Right atrial enlargement, Q waves present in lateral leads Last Vital Signs Date Time Temp Pulse Resp B/P (MAP) Pulse Ox O2 Delivery O2 Flow Rate FiO2 02/12/19 04:08 99.0 121 27 144/106 (119) 91 Room Air Status: improved Reevaluation Impression Patient's tachypnea and retractions much improved with above treatments. Patient still having persistent wheezing, will require admission to stepdown unit on BiPAP. Discussed case with Dr. Monroy. Will admit patient under Dr Bryan. to SDU Disposition: ADMITTED INPATIENT Condition: Hai Kaur M.D. Feb 12, 2019 04:16
[2019-02-12] MEDS ORDERED: Albuterol ud Inhalation ONE (04:24)
[2019-02-12 04:56] LABS: BASOPHILS % (AUTO) 1.1 % (0.0-2.0); EOSINOPHILS % (AUTO) 9.1 % (0.0-3.0); HEMATOCRIT 44.1 % (37.0-47.0); HEMOGLOBIN 14.8 G/DL (12.0-16.0); LYMPHOCYTES % (AUTO) 35.9 % (20.0-45.0); MEAN CORPUSCULAR VOLUME 89 FL (80-99); MONOCYTES % (AUTO) 10.3 % (1.0-10.0); NEUTROPHILS % (AUTO) 43.7 % (45.0-75.0); PLATELET COUNT 313 K/UL (150-450); RED BLOOD COUNT 4.97 M/UL (4.20-5.40); RED CELL DISTRIBUTION WIDTH 10.8 % (11.6-14.8)
[2019-02-12 05:04] LABS: ANION GAP 9 mmol/L (5-15); BLOOD UREA NITROGEN 8 mg/dL (7-18); CALCIUM 8.8 MG/DL (8.5-10.1); CARBON DIOXIDE 25 MMOL/L (21-32); CHLORIDE 106 MMOL/L (98-107); CREATININE 0.9 MG/DL (0.55-1.30); POTASSIUM 3.9 MMOL/L (3.5-5.1); SODIUM 140 MMOL/L (136-145)
[2019-02-12 05:08] LABS: ALANINE AMINOTRANSFERASE 21 U/L (12-78); ALBUMIN 3.8 G/DL (3.4-5.0); ALBUMIN/GLOBULIN RATIO 1.1 (1.0-2.7); ALKALINE PHOSPHATASE 71 U/L (46-116); ASPARTATE AMINO TRANSFERASE 13 U/L (15-37); BILIRUBIN,TOTAL 0.4 MG/DL (0.2-1.0)
--- NOTE | 2019-02-12 05:20 | NUR ---
RESPIRATORY NOTE: Pt came in ED c/o SOB. Pt shallow, labored breathing on a CPAP. Pt immediately placed on BiPAP 07/09, back up rate 12, 40%, per MD Jose Raul. Pt alert/awake, follows commands. Placed on a Facial mask, skin intact, no redness/breakdowns noted. Foam tape applied on pt's nosebridge/cheeks/chin to prevent mask irritations. B/S hannah. wheezes, nonproductive cough. BiPAP plugged into red outlet, alarms on & audible. Breathing tx to be given, ABG to be drawn. Pt tolerating well, still labored on the BiPAP. Will continue to monitor pt. Addendum: 02/12/19 at 0546 by NIC Note meant for 0420 time right after placing pt on BiPAP.
--- NOTE | 2019-02-12 05:32 | NUR ---
ED Nurse Note: X-ray at bedside
--- NOTE | 2019-02-12 06:01 | NUR ---
ED Nurse Note: Attempted x 1 to collect urine sample, per pt unable to provide urine sample at this time.
[2019-02-12 06:11] VITALS: BP 126/83
--- NOTE | 2019-02-12 06:28 | NUR ---
ED Nurse Note: Urine sample collected and sent to lab.
[2019-02-12 06:35] LABS: APPEARANCE,URINE SLIGHTLY CLOUDY; BILIRUBIN, URINE NEGATIVE (NEGATIVE); GLUCOSE, URINE (UA) NEGATIVE (NEGATIVE); KETONES,URINE NEGATIVE (NEGATIVE); LEUKOCYTE ESTERASE ,URINE NEGATIVE (NEGATIVE); NITRITE,URINE NEGATIVE (NEGATIVE); PH,URINE 5 (4.5-8.0); PROTEIN,URINE 2+ (NEGATIVE); UROBILINOGEN,URINE NORMAL MG/DL (0.0-1.0)
[2019-02-12 06:56] LABS: COLOR,URINE PALE YELLOW
[2019-02-12] MEDS ORDERED: Albuterol ud Inhalation HHN SCH (07:00)
[2019-02-12 07:15] VITALS: BP 125/71
--- NOTE | 2019-02-12 07:20 | NUR ---
ED Nurse Note: Report received from JOAQUÍN Caba. Pt in stable condition, no SOB. Respirations even and unlabored on Bipap. Pt c/o headache 07/04. VSS.
--- NOTE | 2019-02-12 07:21 | NUR ---
HAND-OFF: Report given to JOAQUÍN Perdue.
--- NOTE | 2019-02-12 08:13 | NUR ---
ED Nurse Note: Tylenol administered for 5/10 headache
[2019-02-12] MEDS ORDERED: Enoxaparin 40mg Inj SUBQ SCH (09:00)
[2019-02-12 09:15] VITALS: BP 112/77
--- NOTE | 2019-02-12 09:52 | History and Physical ---
History of Present Illness General Date patient seen: Feb 12, 2019 Reason for Hospitalization: Dyspnea/Respdistress Present Illness HPI 38-year-old female extensive former smoker (age 9-37) with severe asthma/COPD overlap syndrome on home O2 3 L presents with acute respiratory distress. Brought in by EMS given 5 mg albuterol nebulizer, 0.5 mg epinephrine 1-1000 intramuscular, placed on CPAP. Of note patient symptoms started 2 days ago with just wheezing. Patient reported she has been intubated twice in the past. She was recently discharged from [place] and finished prednisone taper 2 days ago. Denies any tobacco use or other inhalation. Her nebulizer machine broke last night. She used her albuterol pump 100 times. She doesn't know the name of her other inhaler, says its a reyes triangle. She has a productive cough of yellow sputum. Wheezing, no chest pain. She also snores and says her family has told her she gasps for air. Denies any n/v/abdominal pain. Past medical history as above, in addition: emphysema [address] Antoine Ann @ [facility]. Past surgical history: Partial hysterectomy 2016, bladder reconstruction Social History: Smoking history includes 67-utge-ecth smoking history. Patient quit in 2018 Patient endorses drinking alcohol socially. Patient endorses using marijuana occasionally Family history includes diabetes with her mother and CAD with her father. her youngest child has a lung condition Allergies: Coded Allergies: No Known Allergies (Unverified , 09/25/15) Medication History Scheduled Doxycycline Hyclate (Doxycycline Hyclate), 100 MG ORAL EVERY 12 HOURS Fluticasone/Vilanterol (Breo Ellipta 200-25 Mcg INH), 1 PUFFS INH DAILY Guaifenesin/Dextromethorphan (Robitussin Cough-Chest Dm Liq), 237 ML PO Q6HR Hydroxyzine Hcl (Hydroxyzine Hcl), 50 MG PO DAILY, (Reported) Montelukast Sodium (Singulair), 10 MG ORAL DAILY, (Reported) Oxybutynin Chloride (Oxybutynin Chloride), 5 MG ORAL DAILY, (Reported) Prednisone* (Prednisone*), 40 MG ORAL DAILY Quetiapine Fumarate (Seroquel Xr), 200 MG ORAL QHS, (Reported) Scheduled PRN Hydrocodone Bit/Acetaminophen 5-325* ([place]ittman 5-325*), 1 TAB ORAL Q6H PRN for For Pain Ipratropium Carbon 0.5MG/2.5ML (Ipratropium Carbon 0.5MG/2.5ML), 500 MCG HHN Q4H PRN Ipratropium Carbon 0.5MG/2.5ML (Ipratropium Carbon 0.5MG/2.5ML), 500 MCG HHN Q4HR PRN Levalbuterol HCl (Xopenex Concentrate), 0.625 MG HHN Q4HRT PRN Miscellaneous Medications Vits W-Ca,Fe,Fa(<1MG) ( Formula), 1 EACH PO, (Reported) Durable Medical Equipment Inhaler, Assist Devices (Space Chamber Plus), EACH , (DME) Nebulizer (Aeroeclipse Ii), EACH , (DME) Patient History Healthcare decision maker Resuscitation status Advanced Directive on File Review of Systems Constitutional: Denies: no symptoms, see HPI, chills, sweats, fever, malaise, weakness, other Eye: Denies: no symptoms, see HPI, eye pain, blurred vision, tearing, double vision, nose pain, nose congestion, acuity changes, discharge, other Respiratory: Reports: cough, shortness of breath, wheezing, sputum - yellow Cardiovascular: Denies: no symptoms, see HPI, chest pain, edema, palpitations, syncope, PND, other Gastrointestinal: Denies: no symptoms, see HPI, abdominal pain, constipation, diarrhea, nausea, vomiting, melena, hematemesis, other Genitourinary: Denies: no symptoms, see HPI, discharge, dysuria, frequency, hematuria, pain, retention, incontinence, urgency, vag bleed/dc, other Musculoskeletal: Denies: no symptoms, see HPI, back pain, gout, joint pain, joint swelling, muscle pain, muscle stiffness, other Skin: Denies: no symptoms, see HPI, rash, change in color, change in hair/nails , dryness, lesions, other Psychiatric: Denies: no symptoms, see HPI, prior hx, anxiety, depressed feelings, emotional problems, SI, HI, hallucinations, other Neurological: Denies: no symptoms, see HPI, headache, numbness, paresthesia, seizure, tingling, tremors, focal weakness, syncope, dizziness, other Endocrine: Denies: no symptoms, see HPI, excessive sweating, flushing, intolerance to temperature, increased thirst, increased urine, unexplained weight loss, other Hematologic/Lymphatic: Denies: no symptoms, see HPI, anemia, blood clots, easy bleeding, easy bruising, swollen glands, diathesis, other Physical Exam Physical Exam Narrative General Appearance: moderate respiratory distress, initially on bipap, took it off, could speak full sentences but with visible respiratory distress Head: normocephalic, atraumatic Eyes: bilateral eye normal inspection ENT: hearing grossly normal, EOM grossly intact, moist mucus membranes Neck: supple Respiratory: respiratory distress, decreased breath sounds, accessory muscle use, wheezing, prolonged end expiratory phase Cardiovascular : Tachycardia, s1s2, no m/r/g Gastrointestinal: Obese, soft, non-distended Musculoskeletal: moves extremities spontaneously, no lower extremity edema bilaterally Neurologic: grossly normal, alert and oriented x4 Psychiatric: mood/affect normal Skin: warm/dry, normal turgor, multiple tattoos Last 24 Hour Vital Signs Date Time Temp Pulse Resp B/P (MAP) Pulse Ox O2 Delivery O2 Flow Rate FiO2 02/12/19 07:27 106 14 100 Facial 40 02/12/19 07:15 98.5 110 17 125/71 100 Bi-pap 12.0 40 02/12/19 06:11 98.9 99 17 126/83 100 Bi-pap 12.0 40 02/12/19 05:18 104 18 100 Facial 40 02/12/19 05:15 99 17 100 Bi-Pap 40 02/12/19 05:00 98 18 100 Bi-Pap 40 02/12/19 04:39 106 21 100 Bi-Pap 40 02/12/19 04:24 124 28 100 Bi-Pap 40 02/12/19 04:15 123 24 Bi-pap 7.0 40 02/12/19 04:15 127 32 100 Facial 40 02/12/19 04:15 99.0 123 24 139/83 100 Bi-pap 7.0 40 02/12/19 04:08 99.0 121 27 144/106 (119) 91 Room Air Intake and Output 02/11/19 02/12/19 19:00 07:00 Intake Total 200 ml Balance 200 ml Intake Oral 0 ml IV Total 200 ml Laboratory Tests Test 02/12/19 04:14 02/12/19 04:30 02/12/19 05:55 02/12/19 06:25 Arterial Blood pH 7.269 (7.350-7.450) Arterial Blood Partial Pressure CO2 45.3 mmHg (35.0-45.0) H Arterial Blood Partial Pressure O2 174.1 mmHg (75.0-100.0) H Arterial Blood HCO3 20.3 mmol/L (22.0-26.0) L Arterial Blood Oxygen Saturation 98.6 % (95-100) Arterial Blood Base Excess -6.6 (-2-2) L Lonnie Test Positive White Blood Count 7.0 K/UL (4.8-10.8) Red Blood Count 4.97 M/UL (4.20-5.40) Hemoglobin 14.8 G/DL (12.0-16.0) Hematocrit 44.1 % (37.0-47.0) Mean Corpuscular Volume 89 FL (80-99) Mean Corpuscular Hemoglobin 29.8 PG (27.0-31.0) Mean Corpuscular Hemoglobin Concent 33.5 G/DL (32.0-36.0) Red Cell Distribution Width 10.8 % (11.6-14.8) L Platelet Count 313 K/UL (150-450) Mean Platelet Volume 6.7 FL (6.5-10.1) Neutrophils (%) (Auto) 43.7 % (45.0-75.0) L Lymphocytes (%) (Auto) 35.9 % (20.0-45.0) Monocytes (%) (Auto) 10.3 % (1.0-10.0) H Eosinophils (%) (Auto) 9.1 % (0.0-3.0) H Basophils (%) (Auto) 1.1 % (0.0-2.0) Sodium Level 140 MMOL/L (136-145) Potassium Level 3.9 MMOL/L (3.5-5.1) Chloride Level 106 MMOL/L (98-107) Carbon Dioxide Level 25 MMOL/L (21-32) Anion Gap 9 mmol/L (5-15) Blood Urea Nitrogen 8 mg/dL (7-18) Creatinine 0.9 MG/DL (0.55-1.30) Estimat Glomerular Filtration Rate > 60 mL/min (>60) Glucose Level 126 MG/DL (74-106) H Calcium Level 8.8 MG/DL (8.5-10.1) Total Bilirubin 0.4 MG/DL (0.2-1.0) Aspartate Amino Transf (AST/SGOT) 13 U/L (15-37) L Alanine Aminotransferase (ALT/SGPT) 21 U/L (12-78) Alkaline Phosphatase 71 U/L (46-116) Troponin I 0.000 ng/mL (0.000-0.056) Total Protein 7.3 G/DL (6.4-8.2) Albumin 3.8 G/DL (3.4-5.0) Globulin 3.5 g/dL Albumin/Globulin Ratio 1.1 (1.0-2.7) Lactic Acid Level 1.20 mmol/L (0.4-2.0) Urine Color Pale yellow Urine Appearance Slightly cloudy Urine pH 5 (4.5-8.0) Urine Specific [place] 1.030 (1.005-1.035) Urine Protein 2+ (NEGATIVE) H Urine Glucose (UA) Negative (NEGATIVE) Urine Ketones Negative (NEGATIVE) Urine Blood Negative (NEGATIVE) Urine Nitrite Negative (NEGATIVE) Urine Bilirubin Negative (NEGATIVE) Urine Urobilinogen Normal MG/DL (0.0-1.0) Urine Leukocyte Esterase Negative (NEGATIVE) Urine RBC 0 /HPF (0 - 2) Urine WBC 0-2 /HPF (0 - 2) Urine Squamous Epithelial Cells Few /LPF (NONE/OCC) Urine Amorphous Sediment Many /LPF (NONE) H Urine Bacteria Occasional /HPF (NONE) Height (Feet): 5 Height (Inches): 5.00 Weight (Pounds): 180 Medications Current Medications Medications (Trade) Dose Ordered Sig/Ashli Route PRN Reason Start Time Stop Time Status Last Admin Dose Admin Acetaminophen (Tylenol) 650 mg Q4H PRN ORAL Mild Pain (Pain Scale 1-3) 02/12/19 06:45 03/14/19 06:44 02/12/19 08:09 Albuterol Sulfate (Proventil) 2.5 mg Q4HRT HHN 02/12/19 07:00 02/17/19 06:59 Dextrose (Dextrose 50%) 25 ml Q30M PRN IV Hypoglycemia 02/12/19 06:45 03/14/19 06:44 Dextrose (Dextrose 50%) 50 ml Q30M PRN IV Hypoglycemia 02/12/19 06:45 03/14/19 06:44 Enoxaparin Sodium (Lovenox) 40 mg Q24H SUBQ 02/12/19 09:00 03/14/19 08:59 Famotidine (Pepcid) 40 mg DAILY ORAL 02/12/19 09:00 03/14/19 08:59 Methylprednisolone Sodium Succinate (Solu-MEDROL) 40 mg EVERY 8 HOURS IVP 02/12/19 14:00 03/14/19 13:59 Ondansetron HCl (Zofran) 4 mg Q6H PRN IVP Nausea & Vomiting 02/12/19 06:45 03/14/19 06:44 Assessment/Plan Problem List: (1) Acute respiratory failure ICD Codes: J96.00 - Acute respiratory failure, unspecified whether with hypoxia or hypercapnia SNOMED: 08640753 (2) COPD exacerbation ICD Codes: J44.1 - Chronic obstructive pulmonary disease with (acute) exacerbation SNOMED: 716700101 (3) Asthma exacerbation ICD Codes: J45.901 - Unspecified asthma with (acute) exacerbation SNOMED: 892631869 (4) Former smoker ICD Codes: Z87.891 - Personal history of nicotine dependence SNOMED: 6397600 (5) Obesity ICD Codes: E66.9 - Obesity, unspecified SNOMED: 552795771, 265656131 Status: progressing Assessment/Plan: 38 year old obese female with childhood asthma and extensive smoking history admitted with acute onc hronic respiratory failure with hypoxia and hypercarbia. Admit to step down Pulmonary consult: Dr. Khan Optimize pulmonary hygiene/mobilize as tolerated Titrate down FiO2 to keep SaO2 > 90% Continue bipapa duonebs, LABA/ICS IV Solumedrol 60 q6hr, taper per clinical response (D1) Doxycycline (D1) Needs an outpatient evaluation Continue to abstain from smoking Encourage weight loss Patient says it's her son's birthday tomorrow and reluctant to stay int hospital and may sign out AMA. I explained to her risk of sudden respiratory arrest and . And encouraged her to stay int hospital. DVT ppx: Hep SQ GI ppx: PPI Code status full code I spent 70 minutes on this encounter. Greater than 50% spent on counselling and care coordination. i spent an additional 25 minutes in reviewing old hospitalization and records. Louis Potter M.D. Feb 12, 2019 09:52
--- NOTE | 2019-02-12 10:04 | NUR ---
ED Nurse Note: Dr. Potter, admitting MD at bedside. Per MD, take pt off bipap and put her on 3 L NC. Keep bipap on standby.
--- NOTE | 2019-02-12 10:27 | NUR ---
ED Nurse Note: Pt states that she feels better and does not want to be admitted to the hospital. She said tomorrow is her son's birthday and she is "all he has." Spoke with patient about risks of leaving AMA and benefits of staying. She said if she starts to feel any pain or shortness of breath, she will come right back to the ER [facility]. Spoke with admitting MD, Dr. Potter who told us to tell the patient to stay til tomorrow, and patient declined. Dr. Potter aware of AMA. AMA paperwork signed by patient. ID band and IV removed.
[2019-02-12 10:40] VITALS: BP 115/80
[2019-02-12] MEDS ORDERED: Solu-MEDROL 40mg Inj IVP SCH (14:00)
--- NOTE | 2019-02-12 15:14 | Diagnostic Imaging Report ---
Indication: Shortness of breath Technique: One view of the chest Comparison: 11/07/2018 Findings: Lungs and pleural spaces are clear. The heart size is normal. No significant change Impression: Negative
== END 2019-02-12 10:43 | disposition left against medical advice (07) ==
LOC: EDBD 04:11 → EMR 04:35 → EDBEDREQ 08:09 → CANBEDREQ 10:41 → EMR 10:43
DX: J44.1 Chronic obstructive pulmonary disease with (acute) exacerbation (principal); J45.901 Unspecified asthma with (acute) exacerbation; R06.03 Acute respiratory distress; R06.00 Dyspnea, unspecified; Z99.81 Dependence on supplemental oxygen
CPT/HCPCS: 36415; 36600; 71045; 80053; 81003; 82803; 83605; 84484; 85025; 87040; 93005; 96365; 96366; 96375; J1650; J2930; Z7502; 99291

== ENCOUNTER 2019-02-17 09:26 | Emergency (ER) | payer OTHER ==
[~2019-02-17] VITALS: Ht 157.5 cm; Wt 81.6 kg
--- NOTE | 2019-02-17 09:26 | Emergency Room Report ---
History of Present Illness General Source: Patient, EMS Present Illness HPI Patient is a 38-year-old female presented via ambulance after increased difficulty with breathing. She had prior history of asthma. Patient is a former smoker. Patient had been using home oxygen. She denies any fever. She had been given 2 breathing treatments by paramedics prior to arrival.She reports being sick for the past 2 to 3 days. She had increased nonproductive cough.Patient is currently on steroids as well as Singulair. She is currently using home oxygen. She had recently lost her steroid inhaler. Allergies: Coded Allergies: No Known Allergies (Unverified , 09/25/15) Patient History Past Medical History: see triage record, asthma - Previously intubated Reviewed Nursing Documentation: PMH: Agreed; PSxH: Agreed Review of Systems All Other Systems: negative except mentioned in HPI Physical Exam Sp02 EP Interpretation: reviewed, normal General Appearance: normal inspection, well appearing, no apparent distress, alert, GCS 15 Head: atraumatic ENT: normal ENT inspection, hearing grossly normal, normal voice Neck: normal inspection, full range of motion, supple, no bony tend Respiratory: normal inspection, no retraction, wheezing Cardiovascular #1: no edema, tachycardia Gastrointestinal: normal inspection, normal bowel sounds, non tender, soft, no guarding, no hernia Genitourinary: no CVA tenderness Musculoskeletal: normal inspection, back normal, normal range of motion Neurologic: alert, motor strength/tone normal, oriented x3, responsive, speech normal, normal inspection Psychiatric: normal inspection, judgement/insight normal, mood/affect normal Medical Decision Making Diagnostic Impression: Primary Impression: COPD exacerbation ER Course Patient presented for shortness of breath. Differential included but was not limited to anemia, pneumonia, pneumothorax, myocardial infarction, pericardial effusion, congestive heart failure, acidosis. because of complexity of patient' s case laboratory tests and imaging studies were ordered.Patient was noted to be on home oxygen. Patient had previous CT imaging which showed emphysematous changes and this appears to be a exacerbation. Patient does not show any evidence of pneumonia at this time.She had been given breathing treatments in the emergency department was noted to have improvement in her respiratory difficulty. She was given IV magnesium as well as multiple breathing treatments. She said she felt much better. Patient was given IV steroids. Patient is currently taking multiple medications for respiratory illness. Patient was advised to return if worse. She was given prescriptions for several inhalers which she had run out of. Patient was advised to follow-up with her primary care physician for recheck in 1 to 2 days. She is to return if worse. this medical record is generated with [employer] lithographic plate maker apprentice software. There may be some lithographic plate maker apprentice discrepancies related to use of this software Labs Test 02/17/19 10:30 White Blood Count 5.2 K/UL (4.8-10.8) Red Blood Count 4.30 M/UL (4.20-5.40) Hemoglobin 13.0 G/DL (12.0-16.0) Hematocrit 37.9 % (37.0-47.0) Mean Corpuscular Volume 88 FL (80-99) Mean Corpuscular Hemoglobin 30.3 PG (27.0-31.0) Mean Corpuscular Hemoglobin Concent 34.4 G/DL (32.0-36.0) Red Cell Distribution Width 10.6 % (11.6-14.8) Platelet Count 268 K/UL (150-450) Mean Platelet Volume 6.2 FL (6.5-10.1) Neutrophils (%) (Auto) 49.7 % (45.0-75.0) Lymphocytes (%) (Auto) 29.8 % (20.0-45.0) Monocytes (%) (Auto) 6.1 % (1.0-10.0) Eosinophils (%) (Auto) 13.0 % (0.0-3.0) Basophils (%) (Auto) 1.5 % (0.0-2.0) Sodium Level 142 MMOL/L (136-145) Potassium Level 3.5 MMOL/L (3.5-5.1) Chloride Level 107 MMOL/L (98-107) Carbon Dioxide Level 25 MMOL/L (21-32) Anion Gap 10 mmol/L (5-15) Blood Urea Nitrogen 10 mg/dL (7-18) Creatinine 0.9 MG/DL (0.55-1.30) Estimat Glomerular Filtration Rate > 60 mL/min (>60) Glucose Level 135 MG/DL (74-106) Calcium Level 8.2 MG/DL (8.5-10.1) Total Bilirubin 0.4 MG/DL (0.2-1.0) Aspartate Amino Transf (AST/SGOT) 12 U/L (15-37) Alanine Aminotransferase (ALT/SGPT) 19 U/L (12-78) Alkaline Phosphatase 69 U/L (46-116) Total Protein 6.2 G/DL (6.4-8.2) Albumin 3.4 G/DL (3.4-5.0) Globulin 2.8 g/dL Albumin/Globulin Ratio 1.2 (1.0-2.7) Status: improved Disposition: HOME, SELF-CARE Condition: Stable Scripts Fluticasone/Vilanterol (Breo Ellipta 100-25 Mcg INH) 1 Each Blst.w.dev 1 EACH IH DAILY, #1 EACH Prov: Rj Gayle MD 02/17/19 Umeclidinium [place] (Incruse Ellipta) 62.5 Mcg Blst.w.dev 62.5 MCG IH DAILY, #1 INH Prov: Rj Gayle MD 02/17/19 Rj Gayle MD Feb 17, 2019 09:26
[2019-02-17 09:30] VITALS: BP 132/87
[2019-02-17] MEDS ORDERED: Solu-MEDROL 125mg Inj IVP ONE (09:30)
[2019-02-17] MEDS ORDERED: Albuterol/Ipratropium 3ml neb HHN ONE (09:30)
--- NOTE | 2019-02-17 09:30 | NUR ---
ED Nurse Note: Patient BIBA from home complaining of shortness of breath at rest since last night. Patient has hx of asthma and COPD. Patient states she is out of her inhaled steroids at home. Patient states she gave herself 2 albuterol treatments this AM with subsequent HR increase to 150. Currently, patient's HR 118, VSS, expiritory wheezes on auscultation. RT starting another breathing treatment with nebulizer. Patient states she feels that she can breathe better, no s/s of acute distress.
[2019-02-17] MEDS: Albuterol/Ipratropium 3ml neb HHN SCH (09:55)
--- NOTE | 2019-02-17 09:58 | NUR ---
Patient resting in bed, VSS. RT at bedside, patient tolerating meds well. Patient on the monitoring analyst, bed in lowest position.
[2019-02-17 10:03] VITALS: BP 122/67
--- NOTE | 2019-02-17 10:10 | NUR ---
ED Nurse Note: Patient states she feels much better, breathing is much easier. Patient currently on 2L NC, O2 sat 97%. No s/s of acute distress.
[2019-02-17 10:15] VITALS: BP 122/67
--- NOTE | 2019-02-17 10:15 | NUR ---
ED Nurse Note: Dr. Gayle at bedside.
[2019-02-17 10:55] LABS: BASOPHILS % (AUTO) 1.5 % (0.0-2.0); HEMATOCRIT 37.9 % (37.0-47.0); LYMPHOCYTES % (AUTO) 29.8 % (20.0-45.0); MEAN CORPUSCULAR VOLUME 88 FL (80-99); MONOCYTES % (AUTO) 6.1 % (1.0-10.0); NEUTROPHILS % (AUTO) 49.7 % (45.0-75.0); PLATELET COUNT 268 K/UL (150-450); RED CELL DISTRIBUTION WIDTH 10.6 % (11.6-14.8); WHITE BLOOD COUNT 5.2 K/UL (4.8-10.8)
[2019-02-17 11:00] LABS: ANION GAP 10 mmol/L (5-15); BLOOD UREA NITROGEN 10 mg/dL (7-18); CALCIUM 8.2 MG/DL (8.5-10.1); CARBON DIOXIDE 25 MMOL/L (21-32); CHLORIDE 107 MMOL/L (98-107); CREATININE 0.9 MG/DL (0.55-1.30); POTASSIUM 3.5 MMOL/L (3.5-5.1); SODIUM 142 MMOL/L (136-145)
[2019-02-17 11:04] LABS: ALANINE AMINOTRANSFERASE 19 U/L (12-78); ALBUMIN 3.4 G/DL (3.4-5.0); ALBUMIN/GLOBULIN RATIO 1.2 (1.0-2.7); ALKALINE PHOSPHATASE 69 U/L (46-116); ASPARTATE AMINO TRANSFERASE 12 U/L (15-37); BILIRUBIN,TOTAL 0.4 MG/DL (0.2-1.0)
--- NOTE | 2019-02-17 11:10 | NUR ---
ED Nurse Note: [place] resting in bed, O2 94% on RA. Patient states she feels like she needs another breathing treatment. Per Dr. Gayle, patient can receive another treatment. RT notified.
[2019-02-17] MEDS ORDERED: INCRUSE ELLI62.5 MCG IH ×2 (11:28→11:46)
[2019-02-17] MEDS ORDERED: BREO ELLIPTA 11 EACH IH (11:46)
[2019-02-17 12:10] VITALS: BP 129/78
--- NOTE | 2019-02-17 12:10 | NUR ---
ED Nurse Note: Patient cleared by Dr. Gayle for discharge. Verbalized understanding of prescriptions and DC instructions. No s/s of acute distress. Patient is breathing better, O2 sat is good. Patient has steady gait, AxO x 4. ID band removed.
== END 2019-02-17 12:10 | disposition home or self-care (01) ==
LOC: EDBD 09:26 → EMR 09:37
DX: J44.1 Chronic obstructive pulmonary disease with (acute) exacerbation (principal); Z87.891 Personal history of nicotine dependence; Z99.81 Dependence on supplemental oxygen
CPT/HCPCS: 36415; 80053; 85025; 96361; 96365; 96375; J2930; J7030; Z7502; 99284; J7620

== ENCOUNTER 2019-04-19 18:08 | Emergency (ER) | payer OTHER ==
[~2019-04-19] VITALS: Ht 157.5 cm; Wt 83.5 kg
[~2019-04-19 18:08] MED LIST changes: +BACTRIM DS TAB1 EAC1 ORAL; +CEPHALEXIN500 MG ORAL; +GUAIFENESI100 MG/5 M ORAL; +HYDROCORTISONE28 G2 TP; +INCRUSE ELLI62.5 MCG IH
[2019-04-19 18:15] VITALS: BP 143/80
--- NOTE | 2019-04-19 18:20 | NUR ---
ED Nurse Note: pt walked in to ER from home due to SOB and asthma attack. pt aao x4 and ambulatory. pt is agitated and restless due to SOB. O2 at room air 97% but requested 2L/min via NC and per ERMD it is ok to provide oxygen to promote comfort. skin clean and intact. ERMD at bedside. pt is in gown and on quality assurance monitor. tachycardia and SOB present.
--- NOTE | 2019-04-19 18:20 | Emergency Room Report ---
History of Present Illness General Chief Complaint: Dyspnea/Respdistress Source: Patient, Medical Record Present Illness HPI Patient presents with increased dyspnea. She has a history of COPD and is on home oxygen. She has been using 10 breathing treatments days since yesterday. She denies any vomiting. She has some chest pressure like someone sitting on her chest. She also uses Qvar. She has had nebulizer at home. This is not her worst attack. Last hospitalization she says she went flat line and was intubated. She does use Qvar. She finished a prednisone course 1 week ago. The phlegm is milky white without color. She denies fevers or chills. She denies calf pain or edema. No fevers, chills, sore throat, palpitations, nausea, vomiting, diarrhea, dysuria, abdominal pain, joint pain, rashes, depression, anxiety, visual changes , dizziness, headache. She was last treated March 23 in this emergency department for COPD exacerbation was able to be discharged to home. This bout is worse than that attack. Allergies: Coded Allergies: No Known Allergies (Unverified , 09/25/15) Patient History Past Medical History: see triage record, asthma, COPD, psych hx Past Surgical History: hysterectomy Social History: Denies: smoking Social History Narrative With her daughter Now: No - HYSTERECTOMY Reviewed Nursing Documentation: PMH: Agreed; PSxH: Agreed Nursing Documentation-PMH Past Medical History: No History, Except For Hx Cardiac Problems: No Hx Hypertension: No Hx Pacemaker: No Hx Asthma: Yes Hx COPD: Yes - EMPHYSEMA, COPD Hx Diabetes: No Hx Cancer: No Hx Gastrointestinal Problems: No Hx Dialysis: No Hx Neurological Problems: No Hx Cerebrovascular Accident: No Hx Seizures: No Review of Systems All Other Systems: negative except mentioned in HPI Physical Exam Vital Signs Date Time Temp Pulse Resp B/P (MAP) Pulse Ox O2 Delivery O2 Flow Rate FiO2 04/19/19 18:13 97.3 125 22 143/80 (101) 95 Room Air Sp02 EP Interpretation: reviewed, abnormal - Interpreted as low by me on oxygen General Appearance: GCS 15, non-toxic, mild distress Head: normocephalic Eyes: bilateral eye normal inspection, bilateral eye PERRL, bilateral eye EOMI ENT: moist mucus membranes Neck: supple Respiratory: no retraction, wheezing, expiration, inspiration Cardiovascular #1: regular rate, rhythm, no edema Cardiovascular #2: 2+ radial (R) Gastrointestinal: normal inspection, normal bowel sounds, non tender, no mass, non-distended Genitourinary: no CVA tenderness Musculoskeletal: back normal, normal range of motion, no calf tenderness, gait/ station normal Neurologic: alert, oriented x3, grossly normal Psychiatric: mood/affect normal Skin: no rash, warm/dry, other - Tattoos Medical Decision Making Diagnostic Impression: Primary Impression: Asthma exacerbation Qualified Codes: J45.51 - Severe persistent asthma with (acute) exacerbation Additional Impressions: Eosinophilia On home oxygen therapy ER Course Patient presents with respiratory symptoms, chest tightness and bronchospasm. Differential includes acute myocardial infarction, pneumonia, exacerbation of COPD, asthma, bronchitis, pulmonary embolus amongst others. Evaluation with EKG , chest x-ray and labs. Patient is significantly tight and considerations for epinephrine undertaken. However patient will be treated with Solu-Medrol, breathing treatments and IV magnesium with reevaluation at that time. Clinically pulmonary embolus less likely. EKG without injury. Chest x-ray no infiltrates. Labs with normal white count and eosinophilia. Urinalysis appears contaminated. Due to the severity of this patient's history and presentation moved to admit patient for further hospitalization and treatment. Improved after magnesium and breathing treatments. After ambulate to bathroom, min exp wheezes L. Repeat tx. No longer need admission. Discussed eosinophilia with patient. Discussed treatment plan with patient. Discussed observation at home. Patient stable for outpatient observation and treatment. Laboratory Tests Test 04/19/19 18:30 04/19/19 20:10 White Blood Count 4.6 K/UL (4.8-10.8) L Red Blood Count 4.51 M/UL (4.20-5.40) Hemoglobin 13.4 G/DL (12.0-16.0) Hematocrit 40.3 % (37.0-47.0) Mean Corpuscular Volume 89 FL (80-99) Mean Corpuscular Hemoglobin 29.7 PG (27.0-31.0) Mean Corpuscular Hemoglobin Concent 33.2 G/DL (32.0-36.0) Red Cell Distribution Width 11.9 % (11.6-14.8) Platelet Count 326 K/UL (150-450) Mean Platelet Volume 8.4 FL (6.5-10.1) Neutrophils (%) (Auto) 48.3 % (45.0-75.0) Lymphocytes (%) (Auto) 25.1 % (20.0-45.0) Monocytes (%) (Auto) 9.8 % (1.0-10.0) Eosinophils (%) (Auto) 14.5 % (0.0-3.0) H Basophils (%) (Auto) 2.3 % (0.0-2.0) H Prothrombin Time 10.7 SEC (9.30-11.50) Prothrombin Time INR 1.0 (0.9-1.1) Activated Partial Thromboplast Time 28 SEC (23-33) Sodium Level 143 MMOL/L (136-145) Potassium Level 3.7 MMOL/L (3.5-5.1) Chloride Level 106 MMOL/L (98-107) Carbon Dioxide Level 25 MMOL/L (21-32) Anion Gap 12 mmol/L (5-15) Blood Urea Nitrogen 12 mg/dL (7-18) Creatinine 0.8 MG/DL (0.55-1.30) Estimate Glomerular Filtration Rate > 60 mL/min (>60) Glucose Level 93 MG/DL (74-106) Lactic Acid Level 0.80 mmol/L (0.4-2.0) Calcium Level 9.7 MG/DL (8.5-10.1) Magnesium Level 1.9 MG/DL (1.8-2.4) Total Bilirubin 0.3 MG/DL (0.2-1.0) Aspartate Amino Transferase (AST) 11 U/L (15-37) L Alanine Aminotransferase (ALT) 25 U/L (12-78) Alkaline Phosphatase 67 U/L (46-116) Total Creatine Kinase 78 U/L (26-308) Troponin I 0.000 ng/mL (0.000-0.056) Pro-B-Type Natriuretic Peptide 28 pg/mL (0-125) Total Protein 6.9 G/DL (6.4-8.2) Albumin 3.9 G/DL (3.4-5.0) Globulin 3.0 g/dL Albumin/Globulin Ratio 1.3 (1.0-2.7) Urine Color Elinor Urine Appearance Cloudy Urine pH 6 (4.5-8.0) Urine Specific [place] 1.020 (1.005-1.035) Urine Protein 1+ (NEGATIVE) H Urine Glucose (UA) Negative (NEGATIVE) Urine Ketones 1+ (NEGATIVE) H Urine Blood Negative (NEGATIVE) Urine Nitrite Negative (NEGATIVE) Urine Bilirubin Negative (NEGATIVE) Urine Ictotest Negative (NEGATIVE) Urine Urobilinogen Normal MG/DL (0.0-1.0) Urine Leukocyte Esterase 1+ (NEGATIVE) H Urine RBC 0-2 /HPF (0 - 2) Urine WBC 5-10 /HPF (0 - 2) H Urine Squamous Epithelial Cells Many /LPF (NONE/OCC) H Urine Bacteria Many /HPF (NONE) H Microbiology Date/Time Source Procedure Growth Status 04/19/19 18:30 Nasal Nares - Final Complete 04/19/19 18:30 Nasal Nares - Final Complete EKG Diagnostic Results Rate: normal Rhythm: NSR ST Segments: no acute changes Rhythm Strip Diag. Results EP Interpretation: yes Rhythm: NSR, no PVC's, no ectopy Chest X-Ray Diagnostic Results Chest X-Ray Diagnostic Results : Chest X-Ray Ordered: Yes # of Views/Limited/Complete: 1 View Indication: Shortness of Breath EP Interpretation: Yes Interpretation: no consolidation, no effusion, no pneumothorax Impression: No acute disease Electronically Signed by: Electronically signed by Job Palacio MD Last Vital Signs Date Time Temp Pulse Resp B/P (MAP) Pulse Ox O2 Delivery O2 Flow Rate FiO2 04/19/19 21:40 97.3 20 143/80 100 Room Air 21 04/19/19 21:40 89 2.0 Status: improved Disposition: ADMITTED INPATIENT Condition: Serious Scripts Prednisone* (PREDNISONE*) 20 Mg Tablet 40 MG ORAL DAILY, #10 TAB Prov: Job Palacio MD 04/19/19 Ipratropium [place] 0.5MG/2.5ML (IPRATROPIUM BROMIDE 0.5MG/2.5ML) 0.2 Mg/1 Ml Solution 0.5 MG HHN Q6H PRN for Shortness of Breath, #28 EA Prov: Job Palacio MD 04/19/19 Job Palacio MD Apr 19, 2019 18:20
--- NOTE | 2019-04-19 18:27 | NUR ---
ED Nurse Note: EKG at bedside.
[2019-04-19] MEDS ORDERED: Ipratropium 0.02% Inh Soln 2.5ml UD HHN ONE (18:30)
[2019-04-19] MEDS ORDERED: Solu-MEDROL 125mg Inj IVP ONE (18:30)
--- NOTE | 2019-04-19 18:37 | NUR ---
ED Nurse Note: x-ray at bedside.
--- NOTE | 2019-04-19 18:56 | NUR ---
ED Nurse Note: RT at bedside for breathing treatment.
[2019-04-19] MEDS: Albuterol ud Inhalation HHN SCH ×3 (19:01→19:41)
[2019-04-19 19:04] LABS: BASOPHILS % (AUTO) 2.3 % (0.0-2.0); EOSINOPHILS % (AUTO) 14.5 % (0.0-3.0); HEMATOCRIT 40.3 % (37.0-47.0); HEMOGLOBIN 13.4 G/DL (12.0-16.0); LYMPHOCYTES % (AUTO) 25.1 % (20.0-45.0); MEAN CORPUSCULAR VOLUME 89 FL (80-99); MONOCYTES % (AUTO) 9.8 % (1.0-10.0); NEUTROPHILS % (AUTO) 48.3 % (45.0-75.0); PLATELET COUNT 326 K/UL (150-450); RED BLOOD COUNT 4.51 M/UL (4.20-5.40); RED CELL DISTRIBUTION WIDTH 11.9 % (11.6-14.8); WHITE BLOOD COUNT 4.6 K/UL (4.8-10.8)
--- NOTE | 2019-04-19 19:16 | NUR ---
HAND-OFF: Report given to JOAQUÍN Begum. urine sample endorsed.
[2019-04-19 19:22] LABS: ANION GAP 12 mmol/L (5-15); BLOOD UREA NITROGEN 12 mg/dL (7-18); CALCIUM 9.7 MG/DL (8.5-10.1); CARBON DIOXIDE 25 MMOL/L (21-32); CHLORIDE 106 MMOL/L (98-107); CREATININE 0.8 MG/DL (0.55-1.30); POTASSIUM 3.7 MMOL/L (3.5-5.1); SODIUM 143 MMOL/L (136-145)
[2019-04-19 19:35] LABS: ALANINE AMINOTRANSFERASE 25 U/L (12-78); ALBUMIN 3.9 G/DL (3.4-5.0); ALBUMIN/GLOBULIN RATIO 1.3 (1.0-2.7); ALKALINE PHOSPHATASE 67 U/L (46-116); ASPARTATE AMINO TRANSFERASE 11 U/L (15-37); BILIRUBIN,TOTAL 0.3 MG/DL (0.2-1.0); CREATINE KINASE 78 U/L (26-308)
[2019-04-19 20:23] LABS: APPEARANCE,URINE CLOUDY; BILIRUBIN, URINE NEGATIVE (NEGATIVE); COLOR,URINE AMBER; GLUCOSE, URINE (UA) NEGATIVE (NEGATIVE); KETONES,URINE 1+ (NEGATIVE); LEUKOCYTE ESTERASE ,URINE 1+ (NEGATIVE); NITRITE,URINE NEGATIVE (NEGATIVE); PH,URINE 6 (4.5-8.0); PROTEIN,URINE 1+ (NEGATIVE); UROBILINOGEN,URINE NORMAL MG/DL (0.0-1.0)
[2019-04-19] MEDS ORDERED: Albuterol ud Inhalation HHN ONE (20:45)
[2019-04-19] MEDS ORDERED: PREDNISONE20 MG ORAL (20:53)
[2019-04-19] MEDS ORDERED: IPRATROPIU0.2 MG/1 M HHN (20:53)
--- NOTE | 2019-04-19 21:07 | NUR ---
ED Nurse Note: Pt receiving Breathing tx
--- NOTE | 2019-04-19 21:39 | NUR ---
ER DISCHARGE NOTE: Patient is cleared to be discharged per ERMD, pt is aox4, on room air, with stable vital signs. pt was given dc and prescription instructions, pt was able to verbalize understanding, pt id band and iv site removed without complications. pt is able to ambulate with steady gait. pt took all belongings.
[2019-04-19 21:40] VITALS: BP_SYST 140; BP_SYST 143; BP_DIAS 78; BP_DIAS 80
--- NOTE | 2019-04-20 09:54 | Diagnostic Imaging Report ---
Indication: Shortness of Technique: One view of the chest Comparison: 03/23/2019 Findings: Lungs and pleural spaces are clear. Heart size is normal. No significant interim change Impression: No acute process
== END 2019-04-19 21:40 | disposition home or self-care (01) ==
LOC: EMR 18:40 → CANBEDREQ 20:13 → EMR 21:40
DX: D72.1 Eosinophilia (principal); Z99.81 Dependence on supplemental oxygen; J44.9 Chronic obstructive pulmonary disease, unspecified; Z90.710 Acquired absence of both cervix and uterus
CPT/HCPCS: 36415; 71045; 80053; 81003; 82550; 83605; 83735; 83880; 84484; 85025; 85610; 85730; 86710; 87086; 93005; 96365; 96375; J2930; J7030; Z7502; 99284

== ENCOUNTER 2019-07-11 21:56 | Emergency (ER) | payer OTHER ==
[~2019-07-11] VITALS: Ht 167.6 cm; Wt 68.0 kg
--- NOTE | 2019-07-11 22:05 | NUR ---
ED Nurse Note: pt presents to ED c/o SOB and dyspnea x 2 days. pt has a h/o COPD and states she was last hospitalized for COPD exacerbation about a month ago at cut [facility].pt states that she has been using her atrovent at home without relief of symptoms. pt reports not smoking for 2 years and states she has been self quarantining at home, has not come into contact with any people at risk of COVID infection. EMS report that pt is on 2L O2 at home, they put her on 15L NRB mask. pt denies any fevers, chills but does mention mild chest "tightness." pt placed on 4L O2 NC, satting at 99%
[2019-07-11] MEDS ORDERED: Solu-MEDROL 125mg Inj IVP ONE (22:15)
--- NOTE | 2019-07-11 22:25 | NUR ---
ED Nurse Note: RT is at pt bedside
[2019-07-11] MEDS: Albuterol ud Inhalation HHN SCH ×3 (22:29→23:09)
[2019-07-11] MEDS: Ipratropium 0.02% Inh Soln 2.5ml UD HHN SCH ×3 (22:29→23:09)
[2019-07-11 22:30] VITALS: BP 139/89
--- NOTE | 2019-07-11 22:30 | Emergency Room Report ---
History of Present Illness General Chief Complaint: Dyspnea/Respdistress Source: Patient, EMS Present Illness HPI 38-year-old female presents with shortness of breath. Brought in by EMS from home. History of COPD. Noted chest tightness and cough x1 day. Cough is productive with greenish phlegm. Is on home oxygen. Denies fevers or chills. Denies chest pain. States that she has been home and self isolating with no contact. Stop smoking 2 years ago. No other aggravating or relieving factors. Denies any other associated symptoms Allergies: Coded Allergies: No Known Allergies (Unverified , 09/25/15) COVID-19 Screening Contact w/high risk pt: Yes Recent Travel to affected area: No Experienced COVID-19 symptoms?: Yes COVID-19 symptoms experienced: Shortness of Breath, Cough COVID-19 Testing performed SENIOR DATA ANALYST: No Patient History Past Medical History: COPD Past Surgical History: none Pertinent Family History: none Social History: Denies: smoking, alcohol use, drug use Now: No Immunizations: UTD Reviewed Nursing Documentation: PMH: Agreed; PSxH: Agreed Nursing Documentation-PMH Hx Cardiac Problems: No Hx Hypertension: No Hx Pacemaker: No Hx Asthma: Yes Hx COPD: Yes - EMPHYSEMA, COPD Hx Diabetes: No Hx Cancer: No Hx Gastrointestinal Problems: No Hx Dialysis: No Hx Neurological Problems: No Hx Cerebrovascular Accident: No Hx Seizures: No Review of Systems All Other Systems: negative except mentioned in HPI Physical Exam Vital Signs Date Time Temp Pulse Resp B/P (MAP) Pulse Ox O2 Delivery O2 Flow Rate FiO2 07/11/19 21:57 96.8 111 22 139/89 (106) 97 Nasal Cannula 15.0 Sp02 EP Interpretation: reviewed, normal General Appearance: no apparent distress, alert, GCS 15, non-toxic Head: normocephalic, atraumatic Eyes: bilateral eye normal inspection, bilateral eye PERRL ENT: hearing grossly normal, normal pharynx, no angioedema, normal voice Neck: full range of motion, supple/symm/no masses Respiratory: chest non-tender, decreased breath sounds, speaking full sentences , wheezing Cardiovascular #1: regular rate, rhythm, no edema Cardiovascular #2: 2+ carotid (R), 2+ carotid (L), 2+ radial (R), 2+ radial (L) , 2+ dorsalis pedis (R), 2+ dorsalis pedis (L) Gastrointestinal: normal bowel sounds, non tender, soft, non-distended, no guarding, no rebound Rectal: deferred Genitourinary: normal inspection, no CVA tenderness Musculoskeletal: back normal, normal range of motion, gait/station normal, non- tender Neurologic: alert, motor strength/tone normal, oriented x3, sensory intact, responsive, speech normal Psychiatric: judgement/insight normal, memory normal, mood/affect normal, no suicidal/homicidal ideation Reflexes: 3+ bicep (R), 3+ bicep (L), 3+ tricep (R), 3+ tricep (L), 3+ knee (R) , 3+ knee (L) Skin: no rash Lymphatic: no adenopathy Procedures Critical Care Time Critical Care Time i. I feel this is a highly complex case requiring extensive working including EKG/Rhythm strip, Xray/CT/US, Blood/urine lab work, repeat exams while in ED, and administration of strong opiates/narcotics for pain control, admission to hospital or close patient follow up. Total time: 30 min bedside evaluation and treatment excludes procedures (EKG). Reason for critical care: respiratory distress Possible complications: hypotension, hypertension, UT, shock, arrhythmias, metabolic acidosis, end organ damage, respiratory failure. Interventions: nebulizer treatments, solumedrol, EKG, CXR, labs, reevaluation Course: Patient presenting in shortness of breath. COPD. Home oxygen. Reduced breath sounds bilaterally. Given breathing treatments. Given Solu- Medrol. Labs unremarkable. Chest x-ray shows no focal consolidation. On reassessment breathing improved. Improved breath sounds bilaterally. Consultations: nursing staff, EMS, family Performed by: Dr Tilley Tolerated well condition = improved j. because of unstable vital signs this patient had a condition that could potentially threaten life or limb. I feel this is a critical patient who required my full attention while patient was considered critical. Total Critical Care Time excluding procedures was greater than 35 minutes Medical Decision Making Diagnostic Impression: Primary Impression: COPD (chronic obstructive pulmonary disease) Qualified Codes: J44.9 - Chronic obstructive pulmonary disease, unspecified ER Course Hospital Course 38 yo F presents with SOB. cough. h/o COPD Differential diagnoses include: URI, bronchitis, asthma/COPD, pneumonia Clinical course Patient placed on stretcher. in isolation. I wore full PPE. After initial history, physical exam reveals a female in mild distress. Bilateral TM unremarkable. No pharyngeal erythema. No tonsillar exudates. No lymphadenopathy. redcued breath sounds bilaterally I ordered labs, IV fluids, EKG, nebs, solumedrol, chest x-ray. Labs reviewed-no leukocytosis, hemoglobin/hematocrit stable, electrolytes okay, trop negative EKG - NSR, no acute ischemic changes interpreted by me Chest x-ray shows hyperinflated lungs, no focal consolidation On reassessment symptoms improved. Improved breath sounds noted. Vitals stable. Labs unremarkable. I discussed findings with patient. Consideration for COVID however no leukopenia and no groundglass opacities on x-ray. Encourage patient to maintain isolation given her comorbidities. Patient wishes to be discharged. Safe for discharge for close outpatient follow-up. Diagnosis - COPD Stable and discharged home with prescriptions for albuterol, atrovent, prednisone, amoxicilin, promethazine/codeine. Instructed to followup with PMD. Return to ED if symptoms recur or worsen Labs Test 07/11/19 22:10 White Blood Count 7.8 K/UL (4.8-10.8) Red Blood Count 4.57 M/UL (4.20-5.40) Hemoglobin 13.8 G/DL (12.0-16.0) Hematocrit 42.3 % (37.0-47.0) Mean Corpuscular Volume 92 FL (80-99) Mean Corpuscular Hemoglobin 30.2 PG (27.0-31.0) Mean Corpuscular Hemoglobin Concent 32.7 G/DL (32.0-36.0) Red Cell Distribution Width 12.3 % (11.6-14.8) Platelet Count 314 K/UL (150-450) Mean Platelet Volume 7.3 FL (6.5-10.1) Neutrophils (%) (Auto) 43.4 % (45.0-75.0) Lymphocytes (%) (Auto) 32.5 % (20.0-45.0) Monocytes (%) (Auto) 7.3 % (1.0-10.0) Eosinophils (%) (Auto) 14.8 % (0.0-3.0) Basophils (%) (Auto) 2.0 % (0.0-2.0) Sodium Level 143 MMOL/L (136-145) Potassium Level 3.9 MMOL/L (3.5-5.1) Chloride Level 105 MMOL/L (98-107) Carbon Dioxide Level 28 MMOL/L (21-32) Anion Gap 11 mmol/L (5-15) Blood Urea Nitrogen 20 mg/dL (7-18) Creatinine 0.9 MG/DL (0.55-1.30) Estimat Glomerular Filtration Rate > 60 mL/min (>60) Glucose Level 97 MG/DL (74-106) Calcium Level 9.9 MG/DL (8.5-10.1) Total Bilirubin 0.3 MG/DL (0.2-1.0) Aspartate Amino Transf (AST/SGOT) 17 U/L (15-37) Alanine Aminotransferase (ALT/SGPT) 28 U/L (12-78) Alkaline Phosphatase 72 U/L (46-116) Troponin I 0.001 ng/mL (0.000-0.056) Pro-B-Type Natriuretic Peptide 19 pg/mL (0-125) Total Protein 6.8 G/DL (6.4-8.2) Albumin 3.8 G/DL (3.4-5.0) Globulin 3.0 g/dL Albumin/Globulin Ratio 1.3 (1.0-2.7) EKG Diagnostic Results Rate: normal Rhythm: NSR ST Segments: no acute changes ASA given to the pt in ED: No Rhythm Strip Diag. Results EP Interpretation: yes Rhythm: NSR, no PVC's, no ectopy Chest X-Ray Diagnostic Results Chest X-Ray Diagnostic Results : Chest X-Ray Ordered: Yes # of Views/Limited/Complete: 1 View Indication: Shortness of Breath EP Interpretation: Yes Interpretation: no consolidation, no effusion, no pneumothorax, no acute cardiopulmonary disease Impression: No acute disease Electronically Signed by: Electronically signed by Baltazar Tilley MD Last Vital Signs Date Time Temp Pulse Resp B/P (MAP) Pulse Ox O2 Delivery O2 Flow Rate FiO2 07/11/19 21:57 96.8 111 22 139/89 (106) 97 Nasal Cannula 15.0 Status: improved Disposition: HOME, SELF-CARE Condition: Stable Scripts Codeine/Promethazine Hcl* (PROMETHAZINE-CODEINE SYRUP*) 118 Ml Syrup 5 ML ORAL Q6H PRN for For Cough, #118 ML 0 Refills Prov: Baltazar Tilley MD 07/11/19 Amoxicillin* (AMOXIL*) 500 Mg Capsule 500 MG ORAL THREE TIMES A DAY, #21 CAP Prov: Baltazar Tilley MD 07/11/19 Prednisone* (PREDNISONE*) 20 Mg Tablet 40 MG ORAL DAILY, #10 TAB Prov: Baltazar Tilley MD 07/11/19 Ipratropium [place] 0.5MG/2.5ML (IPRATROPIUM BROMIDE 0.5MG/2.5ML) 0.2 Mg/1 Ml Solution 0.5 MG HHN Q6H PRN for Shortness of Breath, #28 EA Prov: Baltazar Tilley MD 07/11/19 Albuterol Sulfate* (ALBUTEROL SULFATE HHN*) 2.5 Mg/3 Ml Vial.neb 2.5 MG HHN Q4H PRN for Shortness of Breath, #25 VIAL Prov: Baltazar Tilley MD 07/11/19 Baltazar Tilley MD July 11, 2019 22:30
[2019-07-11 22:41] LABS: ANION GAP 11 mmol/L (5-15); BLOOD UREA NITROGEN 20 mg/dL (7-18); CALCIUM 9.9 MG/DL (8.5-10.1); CARBON DIOXIDE 28 MMOL/L (21-32); CHLORIDE 105 MMOL/L (98-107); CREATININE 0.9 MG/DL (0.55-1.30); POTASSIUM 3.9 MMOL/L (3.5-5.1); SODIUM 143 MMOL/L (136-145)
[2019-07-11 22:42] LABS: EOSINOPHILS % (AUTO) 14.8 % (0.0-3.0); HEMATOCRIT 42.3 % (37.0-47.0); HEMOGLOBIN 13.8 G/DL (12.0-16.0); LYMPHOCYTES % (AUTO) 32.5 % (20.0-45.0); MEAN CORPUSCULAR VOLUME 92 FL (80-99); MONOCYTES % (AUTO) 7.3 % (1.0-10.0); NEUTROPHILS % (AUTO) 43.4 % (45.0-75.0); PLATELET COUNT 314 K/UL (150-450); RED BLOOD COUNT 4.57 M/UL (4.20-5.40); RED CELL DISTRIBUTION WIDTH 12.3 % (11.6-14.8); WHITE BLOOD COUNT 7.8 K/UL (4.8-10.8)
[2019-07-11 22:52] LABS: ALANINE AMINOTRANSFERASE 28 U/L (12-78); ALBUMIN 3.8 G/DL (3.4-5.0); ALBUMIN/GLOBULIN RATIO 1.3 (1.0-2.7); ALKALINE PHOSPHATASE 72 U/L (46-116); ASPARTATE AMINO TRANSFERASE 17 U/L (15-37); BILIRUBIN,TOTAL 0.3 MG/DL (0.2-1.0)
--- NOTE | 2019-07-11 22:56 | Diagnostic Imaging Report ---
EXAM: XR Chest, 1 View CLINICAL HISTORY: SOB TECHNIQUE: Frontal view of the chest. COMPARISON: 04/19/2019. FINDINGS: Lungs: Unremarkable. No consolidation. Pleural space: No pleural effusion. No pneumothorax. Heart: Unremarkable. No cardiomegaly. IMPRESSION: No acute cardiopulmonary abnormality.
[2019-07-11] MEDS ORDERED: PREDNISONE20 MG ORAL (23:53)
[2019-07-11] MEDS ORDERED: ALBUTEROL2.5 MG/3 M HHN (23:53)
[2019-07-11] MEDS ORDERED: AMOXICILLIN500 MG ORAL (23:53)
[2019-07-11] MEDS ORDERED: PROMETHAZINE-C118 M1 ORAL (23:53)
[2019-07-11] MEDS ORDERED: IPRATROPIU0.2 MG/1 M HHN (23:53)
[2019-07-11 23:58] VITALS: BP 139/89
== END 2019-07-11 23:58 | disposition home or self-care (01) ==
LOC: EDBD 21:56 → EMR 22:12
DX: J44.9 Chronic obstructive pulmonary disease, unspecified (principal); R06.03 Acute respiratory distress
CPT/HCPCS: 36415; 71045; 80053; 83880; 84484; 85025; 93005; 96361; 96374; J2930; J7030; Z7502; 99291

== ENCOUNTER 2019-07-24 04:34 | Emergency (ER) | payer OTHER ==
[~2019-07-24] VITALS: Ht 165.1 cm; Wt 72.6 kg
--- NOTE | 2019-07-24 04:43 | NUR ---
ED Nurse Note: Pt brought in by RA [facility] from home c/o SOB. Pt has hx of asthma. Pt states she woke up not being able to catch her breath and inhaler ineffective. Pt uses 2L NC continuously. Pt on 2L NC currently Spo2 100%
[2019-07-24] MEDS ORDERED: PREDNISONE20 MG ORAL ×2 (04:49→05:25)
[2019-07-24 04:51] VITALS: BP 149/99
--- NOTE | 2019-07-24 04:57 | Emergency Room Report ---
History of Present Illness General Chief Complaint: Dyspnea/Respdistress Source: Patient Present Illness HPI This a 38-year-old female with a history of severe COPD/asthma. She was a 45- pack-year smoker. She quit 2 years ago. She is chronic steroid and oxygen at home. She presents with chief complaint of shortness of breath and respiratory distress. She says she woke up gasping for air. She was wheezing. Her oxygenation was 80% on room air. She called 911. Breathing treatment helped. She felt better now. No fever chills but no nausea no vomiting. Worse with exertion. Worse with lying flat. Denies any alcohol drugs. Denies any smoking. She had several admissions for COPD/asthma exacerbation in the past. She has been intubated multiple times. 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: No Patient History Past Medical History: see triage record, old chart reviewed, asthma, COPD Past Surgical History: other Pertinent Family History: none Social History: Denies: smoking Now: No Immunizations: other Reviewed Nursing Documentation: PMH: Agreed; PSxH: Agreed Nursing Documentation-PMH Hx Cardiac Problems: No Hx Hypertension: No Hx Pacemaker: No Hx Asthma: Yes Hx COPD: Yes Hx Diabetes: No Hx Cancer: No Hx Gastrointestinal Problems: No Hx Dialysis: No History Of Psychiatric Problem: No Hx Neurological Problems: No Hx Cerebrovascular Accident: No Hx Seizures: No Review of Systems Eye: Denies: eye pain, blurred vision ENT: Denies: ear pain, nose congestion, throat swelling Respiratory: Reports: cough, shortness of breath, wheezing Cardiovascular: Denies: chest pain, palpitations Gastrointestinal: Denies: abdominal pain, diarrhea, nausea, vomiting Musculoskeletal: Denies: back pain, joint pain Skin: Denies: rash Neurological: Denies: headache, numbness Endocrine: Denies: increased thirst, increased urine Hematologic/Lymphatic: Denies: easy bruising All Other Systems: negative except mentioned in HPI Physical Exam Vital Signs Date Time Temp Pulse Resp B/P (MAP) Pulse Ox O2 Delivery O2 Flow Rate FiO2 5/29/20 04:32 98.8 110 24 149/99 (116) 99 Simple Mask 4.0 Vitals with high blood pressure Sp02 EP Interpretation: reviewed, normal General Appearance: well appearing, alert, mild distress Head: normocephalic, atraumatic Eyes: bilateral eye PERRL, bilateral eye EOMI ENT: hearing grossly normal, normal pharynx Neck: full range of motion, supple, no meningismus Respiratory: chest non-tender, respiratory distress, decreased breath sounds, accessory muscle use, wheezing Cardiovascular #1: regular rate, rhythm, no murmur Gastrointestinal: normal bowel sounds, non tender, no mass, no organomegaly, no bruit, non-distended Musculoskeletal: back normal, normal range of motion, gait/station normal Psychiatric: mood/affect normal Medical Decision Making Diagnostic Impression: Primary Impression: COPD exacerbation ER Course Patient presents with COPD exacerbation. This is a chronic issue for her. She may benefit from sleep apnea study. No evidence of ACS, PE, dissection to name a few. Patient felt better now. She is increased risk for deterioration and respiratory failure. Patient is adamant about not staying in the hospital today because she is getting . Labs are pending. Chest x-ray showed no infiltrates. Breathing treatments, steroids and magnesium given. Rhythm Strip Diag. Results EP Interpretation: yes Rate: 110 Rhythm: NSR, no PVC's, no ectopy Chest X-Ray Diagnostic Results Chest X-Ray Diagnostic Results : Chest X-Ray Ordered: Yes # of Views/Limited/Complete: 1 View Indication: Shortness of Breath EP Interpretation: Yes Interpretation: no consolidation, no effusion, no pneumothorax, no acute cardiopulmonary disease Impression: No acute disease Electronically Signed by: Mahesh Cali MD Last Vital Signs Date Time Temp Pulse Resp B/P (MAP) Pulse Ox O2 Delivery O2 Flow Rate FiO2 07/24/19 04:51 98.8 110 24 149/99 99 Simple Mask 4.0 Status: improved Disposition: HOME, SELF-CARE Condition: Stable Scripts Prednisone (PREDNISONE) 5 Mg Tablet 5 MG PO DAILY, #30 TAB Prov: Mahesh Cali MD 07/24/19 Ipratropium [place] 0.5MG/2.5ML (IPRATROPIUM BROMIDE 0.5MG/2.5ML) 0.2 Mg/1 Ml Solution 0.5 MG HHN Q6H PRN for Shortness of Breath, #28 EA Prov: Mahesh Cali MD 07/24/19 Albuterol Sulfate* (ALBUTEROL SULFATE HHN*) 2.5 Mg/3 Ml Vial.neb 2.5 MG HHN Q4H PRN for Shortness of Breath, #25 VIAL Prov: Mahesh Cali MD 07/24/19 Prednisone* (PREDNISONE*) 20 Mg Tablet 40 MG ORAL DAILY, #7 TAB Prov: Mahesh Cali MD 07/24/19 Patient Instructions: Chronic Obstructive Pulmonary Disease Exacerbation Additional Instructions: Follow-up with your doctor in 7 days. Return if symptoms worsen. Mahesh Cali MD July 24, 2019 04:57
[2019-07-24] MEDS ORDERED: Ipratropium 0.02% Inh Soln 2.5ml UD HHN ONE (05:00)
[2019-07-24] MEDS ORDERED: Albuterol ud Inhalation HHN ONE (05:00)
[2019-07-24] MEDS ORDERED: Solu-MEDROL 125mg Inj IVP ONE (05:00)
--- NOTE | 2019-07-24 05:00 | NUR ---
ED Nurse Note: RT and CXR at pt bedside
[2019-07-24 05:20] LABS: BASOPHILS % (AUTO) 0.9 % (0.0-2.0); HEMATOCRIT 41.4 % (37.0-47.0); HEMOGLOBIN 14.6 G/DL (12.0-16.0); LYMPHOCYTES % (AUTO) 26.8 % (20.0-45.0); MEAN CORPUSCULAR VOLUME 85 FL (80-99); MONOCYTES % (AUTO) 7.5 % (1.0-10.0); NEUTROPHILS % (AUTO) 47.8 % (45.0-75.0); PLATELET COUNT 305 K/UL (150-450); RED BLOOD COUNT 4.87 M/UL (4.20-5.40); RED CELL DISTRIBUTION WIDTH 10.8 % (11.6-14.8); WHITE BLOOD COUNT 9.6 K/UL (4.8-10.8)
[2019-07-24] MEDS ORDERED: PREDNISONE5 M3 PO (05:25)
[2019-07-24] MEDS ORDERED: IPRATROPIU0.2 MG/1 M HHN (05:25)
[2019-07-24] MEDS ORDERED: ALBUTEROL2.5 MG/3 M HHN (05:25)
[2019-07-24 05:38] LABS: ANION GAP 8 mmol/L (5-15); BLOOD UREA NITROGEN 16 mg/dL (7-18); CALCIUM 8.6 MG/DL (8.5-10.1); CARBON DIOXIDE 26 MMOL/L (21-32); CHLORIDE 106 MMOL/L (98-107); POTASSIUM 4.1 MMOL/L (3.5-5.1); SODIUM 140 MMOL/L (136-145)
[2019-07-24 05:54] LABS: APPEARANCE,URINE CLEAR; BILIRUBIN, URINE NEGATIVE (NEGATIVE); GLUCOSE, URINE (UA) NEGATIVE (NEGATIVE); KETONES,URINE NEGATIVE (NEGATIVE); LEUKOCYTE ESTERASE ,URINE 1+ (NEGATIVE); NITRITE,URINE NEGATIVE (NEGATIVE); PH,URINE 5 (4.5-8.0); PROTEIN,URINE 1+ (NEGATIVE); UROBILINOGEN,URINE 1 MG/DL (0.0-1.0)
[2019-07-24 06:01] LABS: COLOR,URINE YELLOW
[2019-07-24 06:53] VITALS: BP 149/99
--- NOTE | 2019-07-24 09:20 | Diagnostic Imaging Report ---
Procedure: XRAY Chest 1v Reason for study: Reason For Exam: SOB Comparison films: 07/11/2019. FINDINGS: A single one view chest is obtained. Vascularity is normal. The lung blount are clear bilaterally. Cardiac and mediastinal silhouette are within normal limits. CP angles are sharp. The bony thorax appear unremarkable. IMPRESSION: NO ACUTE CARDIOPULMONARY DISEASE.
== END 2019-07-24 06:53 | disposition home or self-care (01) ==
LOC: EDBD 04:34 → EMR 05:00
DX: J44.1 Chronic obstructive pulmonary disease with (acute) exacerbation (principal)
CPT/HCPCS: 36415; 71045; 80048; 80307; 81001; 81025; 85025; 96361; 96365; 96375; J2930; Z7502; 99284

== ENCOUNTER 2019-08-17 10:11 | Emergency (ER) | payer MEDICAID, OTHER ==
[~2019-08-17] VITALS: Ht 157.5 cm; Wt 88.5 kg
[~2019-08-17 10:11] MED LIST changes: +PREDNISONE5 M3 PO
[2019-08-17] MEDS: Albuterol/Ipratropium 3ml neb HHN SCH ×3 (10:15→11:12)
--- NOTE | 2019-08-17 10:15 | Emergency Room Report ---
History of Present Illness General Chief Complaint: Dyspnea/Respdistress Source: Patient Present Illness HPI Patient is a 38-year-old female presents after increased shortness of breath. Prior history of asthma. Patient uses oxygen at home. Patient is a smoker. Had multiple prior emergency department visits for similar symptoms. She was seen by paramedics and started on supplemental oxygen.She reports having increased dysuria. She is currently on oral steroids. Denies any recent antibiotic use. Denies any vomiting. Allergies: Coded Allergies: No Known Allergies (Unverified , 09/25/15) COVID-19 Screening Contact w/high risk pt: No Recent Travel to affected area: No Experienced COVID-19 symptoms?: No COVID-19 symptoms experienced: Shortness of Breath COVID-19 Testing performed CURRICULUM ASSISTANT PRINCIPAL: No Patient History Past Medical History: see triage record Reviewed Nursing Documentation: PMH: Agreed; PSxH: Agreed Nursing Documentation-PMH Past Medical History: No History, Except For Hx Cardiac Problems: No Hx Hypertension: No Hx Pacemaker: No Hx Asthma: Yes Hx COPD: Yes Hx Diabetes: No Hx Cancer: No Hx Gastrointestinal Problems: No Hx Dialysis: No Hx Neurological Problems: No Hx Cerebrovascular Accident: No Hx Seizures: No Review of Systems All Other Systems: negative except mentioned in HPI Physical Exam Vital Signs Date Time Temp Pulse Resp B/P (MAP) Pulse Ox O2 Delivery O2 Flow Rate FiO2 08/17/19 10:07 97.2 133 24 138/89 (105) 99 Non-Rebreather Sp02 EP Interpretation: reviewed, normal General Appearance: normal inspection, no apparent distress, alert, GCS 15, mild distress Head: atraumatic ENT: normal ENT inspection, hearing grossly normal, normal voice Neck: normal inspection, full range of motion, supple, no bony tend Respiratory: normal inspection, lungs clear, normal breath sounds, no respiratory distress, no retraction, no wheezing Cardiovascular #1: regular rate, rhythm, no edema Gastrointestinal: normal inspection, normal bowel sounds, non tender, soft, no guarding, no hernia Genitourinary: no CVA tenderness Musculoskeletal: normal inspection, back normal, normal range of motion Neurologic: alert, motor strength/tone normal, display decorator III-XII nml as tested, oriented x3, responsive, speech normal, normal inspection Psychiatric: normal inspection, judgement/insight normal, mood/affect normal Medical Decision Making Diagnostic Impression: Primary Impression: Asthma exacerbation Additional Impression: On home oxygen therapy ER Course Patient presented for shortness of breath. Differential diagnosis include was not limited to coronavirus infection, asthma exacerbation, pneumonia among others. Because of complexity of patient's case laboratory tests and imaging studies were ordered. Patient was noted to have some wheezing and difficulty with breathing consistent with asthma. Patient's had multiple prior ER visits for the same is well-known to me. Patient is currently on oral steroids. She was given oral prednisone. She is also given breathing treatments after coronavirus testing was negative. EKG interpreted by me showed sinus tachycardia with a rate of [address] or T wave changes. Patient's laboratory testing showed no elevation of the white blood count or any other evidence of severe infection. Patient was given IV fluids as well as steroids. Patient stated she felt better. Patient was discharged home. Patient was given a prescription for oral antibiotics due to a recent increased discoloration of cough. She uses oxygen at home. She was advised to return if difficulty breathing recurred. the patient is advised to follow up with primary care doctor in 1-2 days. Patient is advised to return if any worsening condition or if any changes in status that are concerning. This report is dictated with [employer] property developer software which may occasionally lead to discrepancies related to use of this software. Labs Test 08/17/19 10:00 08/17/19 10:45 White Blood Count 7.0 K/UL (4.8-10.8) Red Blood Count 4.84 M/UL (4.20-5.40) Hemoglobin 14.5 G/DL (12.0-16.0) Hematocrit 45.1 % (37.0-47.0) Mean Corpuscular Volume 93 FL (80-99) Mean Corpuscular Hemoglobin 30.0 PG (27.0-31.0) Mean Corpuscular Hemoglobin Concent 32.3 G/DL (32.0-36.0) Red Cell Distribution Width 11.4 % (11.6-14.8) Platelet Count 354 K/UL (150-450) Mean Platelet Volume 7.2 FL (6.5-10.1) Neutrophils (%) (Auto) 71.0 % (45.0-75.0) Lymphocytes (%) (Auto) 20.1 % (20.0-45.0) Monocytes (%) (Auto) 5.5 % (1.0-10.0) Eosinophils (%) (Auto) 2.6 % (0.0-3.0) Basophils (%) (Auto) 0.9 % (0.0-2.0) Sodium Level 137 MMOL/L (136-145) Potassium Level 4.4 MMOL/L (3.5-5.1) Chloride Level 104 MMOL/L (98-107) Carbon Dioxide Level 26 MMOL/L (21-32) Anion Gap 8 mmol/L (5-15) Blood Urea Nitrogen 14 mg/dL (7-18) Creatinine 0.9 MG/DL (0.55-1.30) Estimat Glomerular Filtration Rate > 60 mL/min (>60) Glucose Level 109 MG/DL (74-106) Calcium Level 8.8 MG/DL (8.5-10.1) Urine Color Pale yellow Urine Appearance Slightly cloudy Urine pH 5 (4.5-8.0) Urine Specific [place] 1.025 (1.005-1.035) Urine Protein Negative (NEGATIVE) Urine Glucose (UA) Negative (NEGATIVE) Urine Ketones Negative (NEGATIVE) Urine Blood Negative (NEGATIVE) Urine Nitrite Negative (NEGATIVE) Urine Bilirubin Negative (NEGATIVE) Urine Urobilinogen Normal MG/DL (0.0-1.0) Urine Leukocyte Esterase 1+ (NEGATIVE) Urine RBC 0-2 /HPF (0 - 2) Urine WBC 0-2 /HPF (0 - 2) Urine Squamous Epithelial Cells Moderate /LPF (NONE/OCC) Urine Bacteria Few /HPF (NONE) Urine HCG, Qualitative Negative (NEGATIVE) Urine Opiates Screen Negative (NEGATIVE) Urine Barbiturates Screen Negative (NEGATIVE) Phencyclidine (PCP) Screen Negative (NEGATIVE) Urine Amphetamines Screen Negative (NEGATIVE) Urine Benzodiazepines Screen Negative (NEGATIVE) Urine Cocaine Screen Negative (NEGATIVE) Urine Marijuana (THC) Screen Positive (NEGATIVE) EKG Diagnostic Results Rate: tachycardiac - 116 Rhythm: NSR ST Segments: no acute changes Last Vital Signs Date Time Temp Pulse Resp B/P (MAP) Pulse Ox O2 Delivery O2 Flow Rate FiO2 08/17/19 10:07 97.2 133 24 138/89 (105) 99 Non-Rebreather Status: improved Disposition: HOME, SELF-CARE Condition: Stable Scripts Azithromycin* (ZITHROMAX*) 250 Mg Tablet 250 MG ORAL DAILY, #6 TAB 0 Refills Take two tables once daily for 1 day, then one tablet once daily for 4 days. Prov: Rj Gyale MD 08/17/19 Prednisone* (PREDNISONE*) 20 Mg Tablet 40 MG ORAL DAILY, #10 TAB Prov: Rj Gayle MD 08/17/19 Rj Gayle MD Aug 17, 2019 10:15
[2019-08-17 10:17] VITALS: BP 107/72
--- NOTE | 2019-08-17 10:17 | NUR ---
ED Nurse Note: Pt brought in by RA [facility] from home due to respiratory distress and COPD exacerbation started couple of days and worse 20mins prior ED arrival. Pt reports chest tightness and pressure. Noted wheezing and orthopneic position. AAO x4, follows commands with SOB at rest.
[2019-08-17] MEDS ORDERED: ALBUTEROL PO (10:19)
[2019-08-17] MEDS ORDERED: trilogy PO (10:19)
--- NOTE | 2019-08-17 10:20 | NUR ---
ED Nurse Note: rapid covid19 specimen sent to lab.
--- NOTE | 2019-08-17 10:40 | NUR ---
ED Nurse Note: Collected blood and urine then sent.
--- NOTE | 2019-08-17 10:51 | NUR ---
ED Nurse Note: Pt refused tylenol med and Dr Gayle notified.
[2019-08-17 10:56] LABS: BASOPHILS % (AUTO) 0.9 % (0.0-2.0); EOSINOPHILS % (AUTO) 2.6 % (0.0-3.0); HEMATOCRIT 45.1 % (37.0-47.0); HEMOGLOBIN 14.5 G/DL (12.0-16.0); LYMPHOCYTES % (AUTO) 20.1 % (20.0-45.0); MEAN CORPUSCULAR VOLUME 93 FL (80-99); MONOCYTES % (AUTO) 5.5 % (1.0-10.0); PLATELET COUNT 354 K/UL (150-450); RED BLOOD COUNT 4.84 M/UL (4.20-5.40); RED CELL DISTRIBUTION WIDTH 11.4 % (11.6-14.8)
[2019-08-17 10:58] LABS: APPEARANCE,URINE SLIGHTLY CLOUDY; BILIRUBIN, URINE NEGATIVE (NEGATIVE); COLOR,URINE PALE YELLOW; GLUCOSE, URINE (UA) NEGATIVE (NEGATIVE); KETONES,URINE NEGATIVE (NEGATIVE); LEUKOCYTE ESTERASE ,URINE 1+ (NEGATIVE); NITRITE,URINE NEGATIVE (NEGATIVE); PH,URINE 5 (4.5-8.0); PROTEIN,URINE NEGATIVE (NEGATIVE); UROBILINOGEN,URINE NORMAL MG/DL (0.0-1.0)
[2019-08-17 11:07] LABS: ANION GAP 8 mmol/L (5-15); BLOOD UREA NITROGEN 14 mg/dL (7-18); CALCIUM 8.8 MG/DL (8.5-10.1); CARBON DIOXIDE 26 MMOL/L (21-32); CHLORIDE 104 MMOL/L (98-107); CREATININE 0.9 MG/DL (0.55-1.30); POTASSIUM 4.4 MMOL/L (3.5-5.1); SODIUM 137 MMOL/L (136-145)
--- NOTE | 2019-08-17 11:14 | NUR ---
ED Nurse Note: Covid (-) result and RT at the bed side for breathing treatment.
--- NOTE | 2019-08-17 11:50 | NUR ---
ED Nurse Note: Pt states that she feels a lot better after breathing treatment.
[2019-08-17] MEDS ORDERED: PREDNISONE20 MG ORAL (11:53)
[2019-08-17] MEDS ORDERED: ZITHROMAX250 MG ORAL (11:53)
[2019-08-17 11:59] VITALS: BP 122/76
== END 2019-08-17 11:59 | disposition home or self-care (01) ==
LOC: EDSEX 10:11 → EDBD 10:11 → EMR 11:02
DX: J45.901 Unspecified asthma with (acute) exacerbation (principal); Z99.81 Dependence on supplemental oxygen; F17.200 Nicotine dependence, unspecified, uncomplicated; R30.0 Dysuria; J44.9 Chronic obstructive pulmonary disease, unspecified; Z79.52 Long term (current) use of systemic steroids; R00.0 Tachycardia, unspecified
CPT/HCPCS: 36415; 80048; 80307; 81003; 81025; 85025; 96360; J7030; U0002; Z7502; 99284; J7620

== ENCOUNTER 2019-08-17 15:39 | Emergency (ER) | payer MEDICAID, OTHER ==
[~2019-08-17] VITALS: Ht 162.6 cm; Wt 81.6 kg
[~2019-08-17 15:39] MED LIST changes: +ALBUTEROL PO; +trilogy PO
--- NOTE | 2019-08-17 16:00 | NUR ---
ED Nurse Note: Pt was brought in by ambulance from home d/t COPD exacerbation as manifested by shortness of breath and a headache with 10/10 scale. Pt arrived to ED satting at 96% on 2L via NC. Placed on bed and gown; hooked to wall attendant. Per report pt was already seen here in the ER; was given breathing tx and tested covid negative and discharged to home. but felt sob at home afterwards.
--- NOTE | 2019-08-17 16:01 | Emergency Room Report ---
History of Present Illness General Chief Complaint: Dyspnea/Respdistress Source: Patient Present Illness HPI Disclaimer: Please note that this report is being documented using DRAGON technology. This can lead to erroneous entry secondary to incorrect interpretation by the dictating instrument. HPI: This a 38-year-old female history of oxygen dependent asthma, COPD, emphysema presenting for shortness of breath. Patient was seen in the emergency department earlier today. She is complaining of wheezing for several days. She has been on oral steroids and received additional steroids this morning. She tested negative negative for COVID-19 earlier today. Was feeling better and discharged home but woke up from a nap short of breath and tight. Use of breathing treatment without improvement. Per EMS, she was saturating 96 % on 2 L on route. No respiratory distress noted. She denies any recent fever , change in cough, vomiting, diarrhea. Reports moderate headache. No trauma. PMH: COPD, asthma, emphysema PSH: section Allergies: Reviewed Social Hx: Current smoker Allergies: Coded Allergies: No Known Allergies (Unverified , 09/25/15) COVID-19 Screening Contact w/high risk pt: No Recent Travel to affected area: No Experienced COVID-19 symptoms?: No COVID-19 symptoms experienced: Shortness of Breath COVID-19 Testing performed FACER OPERATOR: No Nursing Documentation-PMH Past Medical History: No History, Except For Hx Cardiac Problems: No Hx Hypertension: No Hx Pacemaker: No Hx Asthma: Yes Hx COPD: Yes Hx Diabetes: No Hx Cancer: No Hx Gastrointestinal Problems: No Hx Dialysis: No Hx Neurological Problems: No Hx Cerebrovascular Accident: No Hx Seizures: No Review of Systems All Other Systems: negative except mentioned in HPI Physical Exam Vital Signs Date Time Temp Pulse Resp B/P (MAP) Pulse Ox O2 Delivery O2 Flow Rate FiO2 08/17/19 15:40 122 22 147/97 (114) 97 Nasal Cannula 2.0 General: Awake and alert, appears moderately uncomfortable HEENT: NC/AT. EOMI. Cardiovascular: Tachycardic. S1 and S2 normal. No murmur appreciated Resp: Increase in work of breathing, mild tachypnea. Bilateral wheezing. Abdomen: Abdomen is soft, nondistended. Nontender Skin: Intact. No abrasions, laceration or rash over the exposed skin MSK: Normal tone and bulk. Moving all extremities. No obvious deformity. Neuro: Awake and alert. Mentating appropriately. Medical Decision Making Diagnostic Impression: Primary Impression: COPD exacerbation Additional Impression: Asthma exacerbation ER Course 38-year-old female with a history of oxygen dependent asthma and COPD presents for evaluation of shortness of breath. She was seen earlier in the emergency department treated with oral steroids but will give IV steroids, repeat EKG due to tachycardia, repeat ABG, chest x-ray and treat with continued nebulizers. Also give magnesium. Patient tested negative for COVID-19 earlier today by rapid test. She is saturating above 95% on 2 L nasal cannula. Review of labs from this morning largely within normal limits. No significant white count, no electrolyte abnormalities. Tested positive for marijuana. Will require admission for COPD/asthma exacerbation. Patient is refusing ABG at this time. Will transfer to [facility], per the patient's health plan. She is stable for transfer. Labs Test 08/17/19 17:46 Arterial Blood pH 7.524 (7.350-7.450) Arterial Blood Partial Pressure CO2 28.3 mmHg (35.0-45.0) Arterial Blood Partial Pressure O2 88.9 mmHg (75.0-100.0) Arterial Blood HCO3 22.8 mmol/L (22.0-26.0) Arterial Blood Oxygen Saturation 97.3 % (95-100) Arterial Blood Base Excess 1.1 (-2-2) Lonnie Test Positive EKG Diagnostic Results EKG Time: 16:14 Rate: normal Rhythm: NSR ST Segments: no acute changes Other Impression Borderline tachycardia, normal axis, normal intervals, no ST segment changes. Rhythm Strip Diag. Results Rhythm Strip Time: 16:14 EP Interpretation: yes Rate: 99 Rhythm: NSR, no PVC's, no ectopy Chest X-Ray Diagnostic Results Chest X-Ray Diagnostic Results : Chest X-Ray Ordered: Yes Indication: Shortness of Breath EP Interpretation: Yes Interpretation: no consolidation, no effusion Impression: No acute disease Electronically Signed by: Electronically signed by Dr. Randall Torres Last Vital Signs Date Time Temp Pulse Resp B/P (MAP) Pulse Ox O2 Delivery O2 Flow Rate FiO2 08/17/19 15:40 122 22 147/97 (114) 97 Nasal Cannula 2.0 Disposition: SHORT-TERM HOSP Condition: Stable Randall Torres MD Aug 17, 2019 16:01
--- NOTE | 2019-08-17 16:05 | NUR ---
ED Nurse Note: RT at bedside.
[2019-08-17] MEDS: Albuterol/Ipratropium 3ml neb HHN SCH (16:11)
[2019-08-17 16:15] VITALS: BP 147/97
[2019-08-17] MEDS ORDERED: Solu-MEDROL 125mg Inj IVP ONE (16:15)
[2019-08-17] MEDS ORDERED: Ketorolac 30mg Inj IV ONE (16:30)
--- NOTE | 2019-08-17 16:36 | NUR ---
Pt refused ABG due to headache. ER and RN aware.
--- NOTE | 2019-08-17 16:52 | Diagnostic Imaging Report ---
Procedure: XRAY Chest 1v Reason for study: Shortness of breath. Comparison films: None. FINDINGS: A single one view chest is obtained. Vascularity is normal. Mild densities noted in the lateral aspect of both lung bases either atelectasis versus early infiltrate. Cardiac and mediastinal silhouette are within normal limits. CP angles are sharp. The bony thorax appear unremarkable. IMPRESSION: Mild hazy atelectasis versus early infiltrates lateral lung bases.
--- NOTE | 2019-08-17 16:59 | NUR ---
ED Nurse Note: US tech at bedside.
[2019-08-17] MEDS ORDERED: Doxycycline Monohydrate 100mg ORAL ONE (18:15)
[2019-08-17 19:12] VITALS: BP 141/89
--- NOTE | 2019-08-17 19:12 | NUR ---
ED Nurse Note: pt resting in bed, VSS no ss of distress noted. Will continue to monitor. Pt given juice and sandwich per request
[2019-08-17 21:00] VITALS: BP 135/82
--- NOTE | 2019-08-17 21:00 | NUR ---
ER DISCHARGE NOTE: Patient is cleared to be discharged to [facility] via [facility] per ERMD, pt is aox4, 97% on 2L NC, with stable vital signs. pt was given dc instructions, pt was able to verbalize understanding, pt id band removed without complications. pt is able to ambulate with steady gait. pt took all belongings. Pt taken with 2 program rep via gurney/ ambulance.. Report given to Ron ChampionVp Business Development RN at [facility].
== END 2019-08-17 21:00 | disposition short-term general hospital (02) ==
LOC: EDBD 15:39 → EMR 16:00
DX: J44.1 Chronic obstructive pulmonary disease with (acute) exacerbation (principal); J45.901 Unspecified asthma with (acute) exacerbation; J44.9 Chronic obstructive pulmonary disease, unspecified; Z99.81 Dependence on supplemental oxygen; Z79.52 Long term (current) use of systemic steroids; F17.200 Nicotine dependence, unspecified, uncomplicated; R00.0 Tachycardia, unspecified
CPT/HCPCS: 36600; 71045; 82803; 93005; 96365; 96375; J1885; J2930; Z7502; 99285; J7620

== ENCOUNTER 2019-09-05 20:28 | Emergency (ER) | payer MEDICAID ==
[~2019-09-05] VITALS: Ht 167.6 cm; Wt 77.1 kg
[2019-09-05] MEDS ORDERED: Solu-MEDROL 125mg Inj IVP ONE (20:30)
[2019-09-05] MEDS ORDERED: Metoclopramide 10mg/2ml Inj IVP ONE (20:30)
[2019-09-05] MEDS ORDERED: EPINEPHrine 1mg/1ml Amp IM ONE (20:30)
[2019-09-05] MEDS ORDERED: DiphenhydrAMINE 50mg/ml Inj IVP ONE (20:30)
[2019-09-05 20:33] VITALS: BP 125/52
--- NOTE | 2019-09-05 20:33 | NUR ---
ED Nurse Note: pt biba from home CO chest tightness and SOB x 2 hours. Pt stated that she used rescue inhaler and home meds before calling 911. En route via ambulance, pt was given 2 doses of nitro intranasal and 1 ASA. Pt Sp02 96% on 2L NC. HR elevated 135, ERMD aware. ERMD at bedside. PT aao x4, ambulatory with steady gait, presents as restless with increased WOB. Awaiting further orders.
--- NOTE | 2019-09-05 20:39 | Emergency Room Report ---
History of Present Illness General Chief Complaint: Chest Pain Source: Patient, EMS Present Illness HPI Patient presents with dyspnea and chest pain. EMS treated the patient with albuterol. As the patient was also complaining about chest pain she got aspirin and nitroglycerin. The nitroglycerin is causing a headache and also some nausea. Patient is taking 20 mg of prednisone a day. She is using her nebulizer but still has severe wheezing at this time and shortness of breath. When her asthma gets severe sometimes she has chest pain and she believes this is a probable cause. She denies fevers or chills. She has a mildly productive cough with cream-colored phlegm without color or blood. She denies calf pain or edema. This patient is on home oxygen. She has a nebulizer that she has been using. The pain in her chest is rated 4/10, pleuritic, nonradiating and aching pressure. The nitroglycerin has not helped it. She claims that there is mold in her apartment as well as water in the concrete slab. She is moving next Saturday. No sore throat, diarrhea, dysuria, abdominal pain, joint pain, rashes, depression, anxiety, visual changes, dizziness. Allergies: Coded Allergies: No Known Allergies (Unverified , 09/25/15) COVID-19 Screening Contact w/high risk pt: No Recent Travel to affected area: No Experienced COVID-19 symptoms?: No COVID-19 symptoms experienced: Shortness of Breath COVID-19 Testing performed APARTMENT COMMUNITY MANAGER: Yes COVID-19 Screening: Negative COVID-19 COVID-19 Testing [place] [facility] [place] Patient History Past Medical History: see triage record Social History: Denies: smoking - Prior, alcohol use, drug use Social History Narrative From home Last Menstrual Period: n/a Reviewed Nursing Documentation: PMH: Agreed; PSxH: Agreed Nursing Documentation-PMH Past Medical History: No History, Except For Hx Cardiac Problems: No Hx Hypertension: No Hx Pacemaker: No Hx Asthma: Yes Hx COPD: Yes Hx Diabetes: No Hx Cancer: No Hx Gastrointestinal Problems: No Hx Dialysis: No Hx Neurological Problems: No Hx Cerebrovascular Accident: No Hx Seizures: No Review of Systems All Other Systems: negative except mentioned in HPI Physical Exam Vital Signs Date Time Temp Pulse Resp B/P (MAP) Pulse Ox O2 Delivery O2 Flow Rate FiO2 09/05/19 20:23 98.2 135 18 125/52 (76) 94 Nasal Cannula 2.0 Sp02 EP Interpretation: reviewed, abnormal - Interpreted as low by me General Appearance: GCS 15, non-toxic, moderate distress Head: normocephalic Eyes: bilateral eye normal inspection, bilateral eye PERRL, bilateral eye EOMI ENT: moist mucus membranes Neck: full range of motion, supple Respiratory: respiratory distress - Mild to moderate, wheezing, expiration, inspiration Cardiovascular #1: no edema, tachycardia Cardiovascular #2: 2+ radial (L) Gastrointestinal: non tender, decreased bowel sounds, overweight Genitourinary: no CVA tenderness Musculoskeletal: no calf tenderness Neurologic: motor strength/tone normal, sensory intact, grossly normal Psychiatric: mood/affect normal, anxious Skin: no rash, warm/dry Procedures Critical Care Time Critical Care Time Total Critical Care Time: 60 min bedside evaluation and treatment excludes procedures (EKG). Reason for critical care: Respiratory distress, status asthmaticus, chest pain, repeat evaluations Possible complications: hypotension, hypertension, VA, shock, arrhythmias, metabolic acidosis, end organ damage, respiratory failure. Interventions: Intramuscular epinephrine, Solu-Medrol, repeat evaluations, COVID -19 testing, discussion with accepting physician, discussion with patient Course: Patient presented in respiratory distress after aggressive treatment by paramedics. IM and epinephrine administered along with Solu-Medrol. Patient somewhat worsened with nausea, headache and tachycardia. Repeat evaluations and treatment with Reglan, Benadryl and Tylenol administered. Patient improved with repeat evaluations. Discussion with transfer physician. Discussion with patient regarding further outpatient stabilization of her underlying asthma. Patient still with expiratory wheezes but declines further breathing treatments. COVID-19 was checked for the possibility of breathing treatments and also prior to transfer. Results were negative. Consultations: nursing staff, EMS, lab, accepting physician Performed by: Dr. Palacio Tolerated well condition = serious Medical Decision Making Diagnostic Impression: Primary Impression: Status asthmaticus Qualified Codes: J45.52 - Severe persistent asthma with status asthmaticus Additional Impressions: Chest pain Qualified Codes: R07.9 - Chest pain, unspecified Eosinophilia COVID-19 ruled out ER Course Patient presents with severe asthma and chest pain. Differential includes asthma exacerbation, pneumonia, pulmonary embolus, acute myocardial infarction amongst others. Risk factors for acute VA are low. At this point the bronchospasm seems to be the major problem. IM epinephrine ordered. Rapid COVID-19 test ordered for possible breathing treatments in the emergency department. EKG, chest x-ray and labs also ordered. Solu-Medrol ordered. Patient complains about headache and nausea. Reglan and Benadryl ordered. Decreased wheezes. Still some respiratory distress. EKG sinus tachycardia with P pulmonale. Chest x-ray with COPD no infiltrates, COPD. White count normal but eosinophilia. Patient dramatically improved with minimal tachycardia 0 Rapid COVID-19 test negative. Patient discussed with Dr. Pham. Patient with continued wheezes but end expiratory audible from bedside. Offered patient breathing treatment and she declined. Laboratory Tests Test 09/05/19 20:38 White Blood Count 7.9 K/UL (4.8-10.8) Red Blood Count 4.56 M/UL (4.20-5.40) Hemoglobin 14.0 G/DL (12.0-16.0) Hematocrit 41.4 % (37.0-47.0) Mean Corpuscular Volume 91 FL (80-99) Mean Corpuscular Hemoglobin 30.6 PG (27.0-31.0) Mean Corpuscular Hemoglobin Concent 33.8 G/DL (32.0-36.0) Red Cell Distribution Width 11.8 % (11.6-14.8) Platelet Count 288 K/UL (150-450) Mean Platelet Volume 7.2 FL (6.5-10.1) Neutrophils (%) (Auto) 42.3 % (45.0-75.0) L Lymphocytes (%) (Auto) 36.1 % (20.0-45.0) Monocytes (%) (Auto) 8.5 % (1.0-10.0) Eosinophils (%) (Auto) 11.7 % (0.0-3.0) H Basophils (%) (Auto) 1.4 % (0.0-2.0) Prothrombin Time 11.8 SEC (9.30-11.50) H Prothrombin Time INR 1.1 (0.9-1.1) Activated Partial Thromboplast Time 28 SEC (23-33) Urine Color Pale yellow Urine Appearance Slightly cloudy Urine pH 5 (4.5-8.0) Urine Specific [place] 1.025 (1.005-1.035) Urine Protein Negative (NEGATIVE) Urine Glucose (UA) Negative (NEGATIVE) Urine Ketones Negative (NEGATIVE) Urine Blood Negative (NEGATIVE) Urine Nitrite Negative (NEGATIVE) Urine Bilirubin Negative (NEGATIVE) Urine Urobilinogen Normal MG/DL (0.0-1.0) Urine Leukocyte Esterase 1+ (NEGATIVE) H Urine RBC 0-2 /HPF (0 - 2) Urine WBC 0-2 /HPF (0 - 2) Urine Squamous Epithelial Cells Many /LPF (NONE/OCC) H Urine Bacteria Moderate /HPF (NONE) H Sodium Level 143 MMOL/L (136-145) Potassium Level 3.7 MMOL/L (3.5-5.1) Chloride Level 108 MMOL/L (98-107) H Carbon Dioxide Level 25 MMOL/L (21-32) Anion Gap 10 mmol/L (5-15) Blood Urea Nitrogen 15 mg/dL (7-18) Creatinine 1.0 MG/DL (0.55-1.30) Estimated Glomerular Filtration Rate > 60 mL/min (>60) Glucose Level 94 MG/DL (74-106) Lactic Acid Level 0.50 mmol/L (0.4-2.0) Calcium Level 8.5 MG/DL (8.5-10.1) Magnesium Level 2.1 MG/DL (1.8-2.4) Total Bilirubin 0.2 MG/DL (0.2-1.0) Aspartate Amino Transferase (AST) 13 U/L (15-37) L Alanine Aminotransferase (ALT) 15 U/L (12-78) Alkaline Phosphatase 58 U/L (46-116) Total Creatine Kinase 51 U/L (26-308) Troponin I 0.000 ng/mL (0.000-0.056) Pro-B-Type Natriuretic Peptide 36 pg/mL (0-125) Total Protein 6.7 G/DL (6.4-8.2) Albumin 4.0 G/DL (3.4-5.0) Globulin 2.7 g/dL Albumin/Globulin Ratio 1.5 (1.0-2.7) Lipase 104 U/L (73-393) Microbiology Date/Time Source Procedure Growth Status 09/05/19 20:38 Nasopharynx SARS-CoV-2 RdRp Gene Assay - Final Complete EKG Diagnostic Results Rate: tachycardiac Rhythm: NSR ST Segments: no acute changes - Biatrial enlargement Rhythm Strip Diag. Results EP Interpretation: yes Rhythm: no PVC's, no ectopy, other - Sinus tachycardia Chest X-Ray Diagnostic Results Chest X-Ray Diagnostic Results : Chest X-Ray Ordered: Yes # of Views/Limited/Complete: 1 View Indication: Other EP Interpretation: Yes Interpretation: no consolidation, no effusion, no pneumothorax, other - COPD Impression: Other Electronically Signed by: Electronically signed by Job Palacio MD Last Vital Signs Date Time Temp Pulse Resp B/P (MAP) Pulse Ox O2 Delivery O2 Flow Rate FiO2 09/05/19 23:11 98.4 103 18 112/71 97 Nasal Cannula 3.0 Status: improved Disposition: SHORT-TERM HOSP Condition: Serious Job Palacio MD Sep 05, 2019 20:39
--- NOTE | 2019-09-05 20:45 | NUR ---
ED Nurse Note: IV initiated, blood drawn and sent to lab. All medications administered, pt tolerated well. HR decreased from 135 to 122. ERMD notified.
[2019-09-05 21:09] LABS: BASOPHILS % (AUTO) 1.4 % (0.0-2.0); EOSINOPHILS % (AUTO) 11.7 % (0.0-3.0); HEMATOCRIT 41.4 % (37.0-47.0); LYMPHOCYTES % (AUTO) 36.1 % (20.0-45.0); MEAN CORPUSCULAR VOLUME 91 FL (80-99); MONOCYTES % (AUTO) 8.5 % (1.0-10.0); NEUTROPHILS % (AUTO) 42.3 % (45.0-75.0); PLATELET COUNT 288 K/UL (150-450); RED BLOOD COUNT 4.56 M/UL (4.20-5.40); RED CELL DISTRIBUTION WIDTH 11.8 % (11.6-14.8); WHITE BLOOD COUNT 7.9 K/UL (4.8-10.8)
--- NOTE | 2019-09-05 21:14 | Diagnostic Imaging Report ---
EXAM: XR Chest, 1 View CLINICAL HISTORY: ASTHMA TECHNIQUE: Frontal view of the chest. COMPARISON: 08/17/19 FINDINGS: Lungs: Stable bilateral pulmonary hyperinflation. No consolidation. Pleural space: No significant abnormality. No pneumothorax. Heart: No significant abnormality. No cardiomegaly. Mediastinum: No significant abnormality. Bones/joints: No acute osseous abnormality. IMPRESSION: No acute cardiopulmonary process.
[2019-09-05 21:16] LABS: ANION GAP 10 mmol/L (5-15); BLOOD UREA NITROGEN 15 mg/dL (7-18); CALCIUM 8.5 MG/DL (8.5-10.1); CARBON DIOXIDE 25 MMOL/L (21-32); CHLORIDE 108 MMOL/L (98-107); POTASSIUM 3.7 MMOL/L (3.5-5.1); SODIUM 143 MMOL/L (136-145)
[2019-09-05 21:18] LABS: INR 1.1 (0.9-1.1)
[2019-09-05 21:22] LABS: APPEARANCE,URINE SLIGHTLY CLOUDY; BILIRUBIN, URINE NEGATIVE (NEGATIVE); COLOR,URINE PALE YELLOW; GLUCOSE, URINE (UA) NEGATIVE (NEGATIVE); KETONES,URINE NEGATIVE (NEGATIVE); LEUKOCYTE ESTERASE ,URINE 1+ (NEGATIVE); NITRITE,URINE NEGATIVE (NEGATIVE); PH,URINE 5 (4.5-8.0); PROTEIN,URINE NEGATIVE (NEGATIVE); UROBILINOGEN,URINE NORMAL MG/DL (0.0-1.0)
[2019-09-05 21:26] LABS: ALANINE AMINOTRANSFERASE 15 U/L (12-78); ALBUMIN/GLOBULIN RATIO 1.5 (1.0-2.7); ALKALINE PHOSPHATASE 58 U/L (46-116); ASPARTATE AMINO TRANSFERASE 13 U/L (15-37); BILIRUBIN,TOTAL 0.2 MG/DL (0.2-1.0); CREATINE KINASE 51 U/L (26-308)
--- NOTE | 2019-09-05 22:10 | NUR ---
ED Nurse Note: Pt resting in bed, VSS no ss of distress noted. will continue to monitor.
--- NOTE | 2019-09-05 22:45 | NUR ---
Covid19 test result faxed to [phone] as requested by [facility] coordinator.
[2019-09-05 22:57] VITALS: BP 112/71
[2019-09-05 23:11] VITALS: BP 112/71
--- NOTE | 2019-09-05 23:11 | NUR ---
ER DISCHARGE NOTE: Patient is cleared to be discharged to [facility] with [facility] per [facility]MD, pt is aox4, 97% on 3L NC, with stable vital signs. pt was given dc instructions, pt was able to verbalize understanding, pt id band removed. pt is able to ambulate with steady gait. pt took all belongings. 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
--- NOTE | 2019-09-05 23:11 | NUR ---
ED Nurse Note: Report given to JOAQUÍN Moon at [facility].
== END 2019-09-05 23:11 | disposition short-term general hospital (02) ==
LOC: EDBD 20:28 → EMR 20:30
DX: J45.52 Severe persistent asthma with status asthmaticus (principal); R07.9 Chest pain, unspecified; D72.1 Eosinophilia; Z99.81 Dependence on supplemental oxygen; J44.9 Chronic obstructive pulmonary disease, unspecified; R00.1 Bradycardia, unspecified; R00.0 Tachycardia, unspecified
CPT/HCPCS: 36415; 71045; 80053; 81003; 82550; 83605; 83690; 83735; 83880; 84484; 85025; 85610; 85730; 87086; 93005; 96372; 96374; 96375; J0171; J1200; J2765; J2930; J7040; U0002; Z7502; 99291